=== PATIENT | female | born 1985 | race Two or more races ===

== ENCOUNTER 2021-05-30 08:40 | Outpatient (REF) | payer OTHER, SELFPAY ==
[2021-05-30 14:10] LABS: CT PCR NOT DETECTED (Not Detect.); NG PCR NOT DETECTED (Not Detect.)
[2021-05-31 09:16] LABS: BV Int Neg Control Negative (Negative); BV Int Pos Control Positive (Positive)
[2021-06-02 05:51] LABS: HPV mRNA E6/E7 rflx Not Detected (Not Detected)
== END 2021-05-30 08:41 | disposition home or self-care (01) ==
LOC: HO.LAB 08:40
PROVIDERS: Visit Provider Advanced Practice Midwife
DX: Z01.419 Encounter for gynecological examination (general) (routine) without abnormal findings (principal); Z11.51 Encounter for screening for human papillomavirus (HPV); R10.2 Pelvic and perineal pain; N64.4 Mastodynia; Z20.2 Contact with and (suspected) exposure to infections with a predominantly sexual mode of transmission
CPT/HCPCS: 81025; 87480; 87491; 87510; 87591; 87624; 87660; 88142

== ENCOUNTER 2021-07-05 11:41 | Outpatient (REF) | payer OTHER, SELFPAY ==
--- NOTE | ~2021-07-05 | MM_ITS ---
EXAMINATION: MM DIAGNOSTIC DIGITAL BREAST TOMOSYNTHESIS, BILATERAL US DIAGNOSTIC ULTRASOUND BREAST, LEFT CLINICAL INFORMATION: Age 36 with intermittent noncyclical left lateral breast pain 1.5 years. No palpable mass or discharge. The lifetime risk of breast cancer based on the Tyrer-Cuzick Model is 15%. COMPARISON: None (current study represents initial baseline exam). TECHNIQUE: Digital breast tomosynthesis is performed in both the craniocaudal and mediolateral oblique views along with computer-aided detection (CAD). Synthesized 2D images are generated from the tomosynthesis. Additional left MLO view is obtained. Ultrasound left breast is targeted to the upper and outer quadrants. Grayscale imaging and color Doppler are performed without and with harmonics. FINDINGS: There are scattered areas of fibroglandular density (ACR BI-RADS breast composition Category b). Breast tissue composition borders on heterogeneously dense. There is no significant mass or architectural abnormality or abnormal calcifications. The axilla and skin contours are unremarkable. There is no skin thickening or coarsening of the Chip's ligaments. Ultrasound left breast demonstrates no skin thickening or edema tracking in soft tissue planes. There is no focal duct ectasia or hyperemia or architectural abnormality. No solid mass. There are 2 incidental benign simple cysts present mid depth 12:00 and 2:00 position, both under 1 cm. Incidental node present posterior upper outer left breast with normal katarina architecture. Results are discussed with the patient at time of visit. MM/MM tomosynthesis diagnostic BI IMPRESSION: 1. No mammographic evidence of malignancy or inflammatory changes. 2. Ultrasound shows 2 incidental benign cysts left upper outer quadrant, both under 1 cm. ASSESSMENT: BI-RADS 2: Benign RECOMMENDATION: 1. Patient's intermittent noncyclical chronic left breast pain may be managed based on the clinical impression. 2. Otherwise, routine annual screening mammography, beginning age 40, or earlier as clinical risk factors warrant. This patient's information was entered into a reminder system with a target due date for their next mammogram.
[2021-07-05 13:38] LABS: MANUAL DIFF FLAG NO
[2021-07-05 13:51] LABS: Basophils Percent Auto 0.5 % (0-2); Eosinophils Absolute Auto 0.4 X10*3/uL (0.0-0.4); Eosinophils Percent Auto 6.7 % (0-4); Hematocrit 39.7 % (37.0-47.0); Hemoglobin 12.9 g/dl (12.0-16.0); Imm Gran Abs Auto 0.01 X10*3/uL (0.00-0.03); Imm Gran Pct Auto 0.2 % (0.0-0.4); Lymphocytes Absolute Auto 2.5 X10*3/uL (1.2-4.9); Lymphocytes Percent Auto 44.8 % (20-40); Mean Corpuscular HGB Conc 32.5 g/dl (31.0-35.0); Mean Corpuscular Hemoglobin 29.2 pg (27.0-33.0); Mean Corpuscular Volume 89.8 fL (80.0-98.0); Mean Platelet Volume 9.7 fL (9.4-12.3); Monocytes Absolute Auto 0.3 X10*3/uL (0.1-1.2); Monocytes Percent Auto 6.2 % (2-11); Neutrophils Absolute Auto 2.3 x10*3/uL (2.0-8.3); Neutrophils Percent Auto 41.6 % (45-73); Platelet Count 208 X10*3/uL (160-400); Red Blood Count 4.42 X10*6/uL (4.20-5.50); Red Cell Distribution Width 12.8 % (11.0-16.0); White Blood Count 5.5 X10*3/uL (4.8-10.8)
[2021-07-05 15:10] LABS: Alanine Aminotransferase 16 U/L (0-31); Albumin Level 4.2 g/dL (3.5-5.0); Alkaline Phosphatase 62 U/L (39-117); Anion Gap 11 (12-20); Aspartate Amino Transferase 17 U/L (5-31); Bilirubin Total 0.3 mg/dL (0.0-1.0); Blood Urea Nitrogen 10 mg/dL (9-16); Calcium 9.3 mg/dL (8.4-10.2); Carbon Dioxide 27 mmol/L (22-29); Chloride 103 mmol/L (96-108); Cholesterol 168 mg/dL; Estimated Glomerular Filt Rate > 60; Glucose Fasting 83 mg/dL (60-99); HDL Cholesterol 42 mg/dL; LDL Cholesterol Calculated 92 mg/dl; Potassium 3.9 mmol/L (3.3-5.1); Sodium 137 mmol/L (135-145); Total Protein 7.1 g/dL (6.5-8.0); Triglycerides 173 mg/dL
[2021-07-05 15:31] LABS: TSH reflex Free T4 1.08 uIU/mL (0.32-4.0)
== END 2021-07-05 11:42 | disposition home or self-care (01) ==
LOC: HO.MAMMO 11:41
PROVIDERS: Absent Provider Nurse Practitioner Family; PCP Nurse Practitioner Family; Visit Provider Advanced Practice Midwife
DX: N64.4 Mastodynia (principal)
CPT/HCPCS: 36415; 76642; 77062; 77066; 80053; 80061; 84443; 85025

== ENCOUNTER → 2021-07-13 11:40 | Outpatient (BNVA) | payer OTHER, SELFPAY | PROVIDERS: PCP Nurse Practitioner Family; Visit Provider Advanced Practice Midwife ==

== ENCOUNTER → 2021-08-18 13:04 | Outpatient (BNVA) | payer OTHER, SELFPAY | PROVIDERS: PCP Nurse Practitioner Family; Visit Provider Advanced Practice Midwife | DX: Z30.46 Encounter for surveillance of implantable subdermal contraceptive (principal) | CPT/HCPCS: 11983; 81025; J7307 ==

== ENCOUNTER 2021-09-08 19:42 | Emergency (ER) | payer OTHER, SELFPAY ==
--- NOTE | ~2021-09-08 | XR_ITS ---
EXAMINATION: XR CHEST CLINICAL INFORMATION: Cough. COMPARISON: None TECHNIQUE: 2 views of the chest were obtained. FINDINGS: No significant abnormality is noted involving the heart, lungs, mediastinum, bony thorax or soft tissues. XR/XR chest 2V IMPRESSION: Unremarkable examination.
[2021-09-08 19:48] VITALS: BP 131/80; PULSE 88; TEMP 37; O2SAT 98; BMI 24.4
--- NOTE | 2021-09-08 20:06 | ED_ITS ---
HPI - URI/Sore Throat General Chief Complaint: Upper Respiratory Symptoms Stated Complaint: diff breathing, chest pressure Source: patient Mode of arrival: ambulatory Limitations: no limitations History of Present Illness HPI Narrative: 36-year-old female presents for upper respiratory symptoms which include cough, fatigue, hoarse voice, feels as if she is having asthma exacerbation, and headache. MD elicited complaint: cough, sore throat, rhinorrhea and nasal congestion Pertinent past history: asthma Onset (ago): week(s) (1) Consistency: constant and progressively worsening Severity: moderate Pain scale (0-10): 10 Description of mucous: clear and watery Able to tolerate fluids by mouth: Yes Exacerbating factors: exertion Relieving factors: nothing Context: sick contacts Associated symptoms: voice changes, myalgias, headache, rhinorrhea, nasal congestion, sore throat, cough and shortness of breath Treatments prior to arrival: acetaminophen, ibuprofen and other (Nebulizers) Related Data Home Medications Medication Instructions Recorded Confirmed multivitamin (Daily Multi-Vitamin) 1 tab PO DAILY 06/14/21 08/10/21 etonogestrel 68 mg subdermal SUBDERMAL ONCE 08/10/21 08/10/21 implant (Nexplanon) Previous Rx's Medication Instructions Recorded triamcinolone acetonide 0.5 % 1 appl TOPICAL BID #15 g 06/14/21 topical ointment venlafaxine 75 mg tablet 75 mg PO DAILY #30 tab 08/10/21 albuterol sulfate 2.5 mg/0.5 mL 2.5 mg (0.5 mL) INHALATION Q20M 09/08/21 solution for nebulization #30 ea albuterol sulfate 90 mcg/actuation 2 puff INHALATION Q6H PRN #8.5 g 09/08/21 aerosol inhaler (Ventolin HFA) earbnhgusi-eyvkzeaormjid-ruvgxmup 1 tab PO Q4-6H PRN #10 tab 09/08/21 50 mg-325 mg-40 mg tablet prednisone 20 mg tablet 40 mg PO DAILY 5 Days #10 tab 09/08/21 Allergies Allergy/AdvReac Type Severity Reaction Status Date / Time Penicillins [PCN] Allergy Unknown UNKNOWN Verified 08/18/21 13:09 walnut Allergy Unknown Unknown Verified 08/18/21 13:09 Review of Systems Review of Systems: Constitutional: No Fever, No Chills ENT/Mouth: Positive Hoarseness, No sore throat, positive Rhinorrhea Eyes: No Redness, No Discharge, No Vision Changes Cardiovascular: No Chest Pain, positive SOB, positive Dyspnea on Exertion, No Edema Respiratory: positive Cough, No Sputum, positive Wheezing, Gastrointestinal: No Nausea, No Vomiting, No Diarrhea, No abdominal Pain Genitourinary: No Dysuria, No Hematuria Musculoskeletal: No joint pain, No Myalgias Skin: No rash Neuro: No Weakness, No Numbness, positive Headache Psych: No anxiety, depression Heme/Lymph: No Bruising, No Bleeding Endocrine: No Polyuria, No Polydipsia Yes all other systems are reviewed and are negative [facility] Past Medical History Attestation statement: The following information was validated with the patient. Source: old records reviewed Medical History Alopecia Surgical History No pertinent past surgical history Family History Family History Mother Ovarian cancer Other Mental health disorder Social History Social History Housing: House Alcohol intake: current Alcohol intake frequency: holidays/special occasions only Alcohol type: wine Patient Tobacco Use Status: Never used Tobacco e-Cigarette/Vaping Use: Never Used Second Hand Smoke Exposure: No Advance Directives: No Patient : No service: No Current occupational status: employed Current occupation: Dental Cognitive needs: No Hearing needs: No Vision needs: Yes Physical Exam Vital Signs: Vital Signs: Last Vital Signs Temp 98.6 F 09/08/21 19:48 Pulse 83 09/08/21 20:44 Resp 18 09/08/21 20:44 BP 131/80 09/08/21 19:48 Pulse Ox 98 09/08/21 19:48 BMI result Body Mass Index 24.4 Appearance: Alert. Oriented X3. Moderate distress. Photophobic. Eyes: Pupils equal, round and reactive to light. Sclera nonicteric. ENT: Pharynx normal. Moist mucous membranes. Neck: Normal inspection. Neck supple. CVS: Normal heart rate and rhythm. Pulses normal. Respiratory: No respiratory distress. Expiratory wheezing throughout. Abdomen: Soft and nontender. Skin: Skin warm and dry. Normal skin color. Normal skin turgor. Extremities: No lower extremity edema. Gait well-balanced well coordinated. Neuro: No motor deficit. No sensory deficit. Cranial nerves 2-12 intact. Course Course Course Narrative: 36-year-old female presents with upper respiratory symptoms. Has had these symptoms for approximately 1 week. Does not report fevers or chills but states to feel asthma exacerbation. Also reports a migraine headache for approximately 1 week. Lung sounds expiratory wheezing throughout. Able to speak in complete sentences. Will order neb, Solu-Medrol. Tylenol for headache. 22:06 migraine not relieved with Tylenol. Patient stated that medications were more effective. Lung sounds are clear, still has intermittent cough. Will prescribe albuterol nebs and inhaler, prednisone, and Fioricet for migraines. Patient understands that she must follow-up with primary care physician for migraine workup. Patient verbalized understanding of and agrees to plan of care to discharge home. Verbalized understanding of signs and symptoms indicating need for emergent intervention MDM - URI/Sore Throat Differential Diagnosis Differential diagnosis: Likely upper respiratory infection, sinusitis, viral infection, bronchitis, influenza and pharyngitis Medical Records Attestation: I reviewed the patient's medical records. Lab Data Attestation: I reviewed the patient's lab results. Labs: Lab Results 09/08/21 09/08/21 Range/Units 20:05 20:48 COVID-19 ([facility]JAY) Negative (Negative) COVID-19 Clin Com See Note Influenza Type A (UDAY) Negative (Negative) Influenza Type B (UDAY) Negative (Negative) Influenza A & B Note See Note Imaging Data Chest x-ray: Attestation: I personally reviewed and interpreted this imaging study as follows: Radiologist's impression: EXAMINATION: XR CHEST CLINICAL INFORMATION: Cough. COMPARISON: None TECHNIQUE: 2 views of the chest were obtained. FINDINGS: No significant abnormality is noted involving the heart, lungs, mediastinum, bony thorax or soft tissues. XR/XR chest 2V IMPRESSION: Unremarkable examination. Discharge Plan Discharge Clinical Impression: Asthma exacerbation, Migraine, Upper respiratory infection, viral Patient Disposition: Home, Self-Care Instructions: Asthma (ED), Migraine Headache (ED), Upper Respiratory Infection (ED), Viral Syndrome (ED) Additional Instructions: You were evaluated for upper respiratory symptoms. We treated you for asthma exacerbation. We refilled your albuterol nebulizers and inhalers. Please take these medications as directed. Please take prednisone 40 mg daily for the next 5 days. Please start this medication on 09/09/2021. Please take Fioricet for migraine headaches. You may consider following up with primary care for further workup for migraines. Her chest x-ray was negative for pneumonia. Drink plenty of fluids. Alternate Tylenol and Motrin as needed for pain management and fever control. Thank you for choosing this emergency department for evaluation. Please follow-up with primary care physician as needed. Return to the emergency d epartment for any new, concerning, or worsening symptoms. Prescriptions: New prednisone 20 mg tablet 40 mg PO DAILY 5 Days Qty: 10 0RF albuterol sulfate [Ventolin HFA] 90 mcg/actuation HFA aerosol inhaler 2 puff inhalation Q6H PRN (Reason: shortness of breath or wheezing) Qty: 8.5 0RF Rx Instructions: May substitute for medication approved by insurance albuterol sulfate 2.5 mg/0.5 mL solution for nebulization 2.5 mg inhalation Q20M Qty: 30 0RF Rx Instructions: for up to 3 doses, may substitute for medication accepted by insurance [id number]-[id number] 50-325-40 mg tablet 1 tab PO Q4-6H PRN (Reason: migraine headache) Qty: 10 0RF No Action multivitamin [Daily Multi-Vitamin] Tablet 1 tab PO DAILY 0RF triamcinolone acetonide 0.5 % ointment 1 appl topical BID Qty: 15 1RF Nexplanon 68 mg implant subdermal ONCE 0RF venlafaxine 75 mg tablet 75 mg PO DAILY Qty: 30 0RF Referrals: Eugenio Mendieta FNP-C [Primary Care Provider] - Stand Alone Forms: Work/School Release Interventions: ED Discharge Assessment Last Done: 09/08/21 23:01 Discharge Date/Time: 09/08/21 23:19
--- NOTE | 2021-09-08 20:11 | PC.NURSE ---
Assumed care of pt Pt c/o sore throat, productive cough, hoarse voice x 1 week. Per pt, started having YOUNG today around lunch. Phtotosensitive Coughing up green mucus Pt also been having worsening SOB Denies fevers/chills Hx of asthma and compliant with medications, (flovent, proair, albuterol), with no relief
[2021-09-08 20:26] LABS: IDNOW Serial# 55D5AD1C; Influenza A Negative (Negative); Influenza B2 Negative (Negative)
[2021-09-08] MEDS: Albuterol Sulfate (0.083%) 2.5 MG/3 ML VIAL.NEB 5 MG INHALE (20:42)
[2021-09-08 20:44] VITALS: PULSE 83; RESP 18; O2SAT 99
[2021-09-08] MEDS: methylPREDNISolone Sod Succ 125 MG/2 ML VIAL IVPUSH (20:45)
[2021-09-08] MEDS: Acetaminophen 325 MG TABLET 975 MG PO (20:59)
[2021-09-08 21:08] LABS: COVID-19 Test Negative (Negative); IDNOW Serial# 16C4AD1C
[2021-09-08] MEDS: Butalb/Acetamin/Caff 50/325/40 TABLET 1 TAB PO (22:15)
[2021-09-08] MEDS: Ketorolac Tromethamine 30 MG/ML VIAL IVPUSH (22:15)
[2021-09-08] MEDS: ondansetron HCL 4 MG/2 ML VIAL IVPUSH (22:15)
== END 2021-09-08 23:19 | disposition home or self-care (01) ==
PROVIDERS: Emergency Medicine Emergency Medical Services; Nurse Practitioner Family; Emergency Provider Internal Medicine; PCP Nurse Practitioner Family
DX: B34.9 Viral infection, unspecified (principal); J45.901 Unspecified asthma with (acute) exacerbation; J06.9 Acute upper respiratory infection, unspecified; G43.909 Migraine, unspecified, not intractable, without status migrainosus; R05.9 Cough, unspecified; R06.02 Shortness of breath; M79.10 Myalgia, unspecified site; Z20.822 Contact with and (suspected) exposure to COVID-19; Z79.899 Other long term (current) drug therapy
CPT/HCPCS: 71046; 87502; 87635; 94640; 96374; 96375; 99283; 99284; J1885; J2405; J2930

== ENCOUNTER 2021-11-15 06:21 | Emergency (ER) | payer OTHER, SELFPAY ==
--- NOTE | 2021-11-15 | ECG_ITS ---
Test Reason : cp Blood Pressure : / mmHG Vent. Rate : 089 BPM Atrial Rate : 089 BPM P-R Int : 156 ms QRS Dur : 074 ms QT Int : 352 ms P-R-T Axes : 078 082 044 degrees QTc Int : 428 ms Normal sinus rhythm Normal ECG No previous ECGs available Referred By: Generic ED Physician Electronically Signed By:CHRISTAL ENRIQUEZ MD
[2021-11-15 06:34] VITALS: BP 135/75; PULSE 93; RESP 20; TEMP 36.8; O2SAT 96; BMI 25.4
[2021-11-15 07:09] LABS: COVID-19 Test Negative (Negative); IDNOW Serial# 16C4AD1C; Influenza A Negative (Negative); Influenza B2 Negative (Negative)
--- NOTE | 2021-11-15 08:16 | ED_ITS ---
HPI - General Adult General Chief complaint: Nausea/Vomiting/Diarrhea Stated complaint: flu like symptoms, cp Time Seen by Provider: 11/15/21 08:16 Source: patient Mode of arrival: ambulatory Limitations: no limitations History of Present Illness HPI narrative: Patient is a 36 year old female presenting to the emergency department today with nausea, vomiting, and a migraine. Patient states that starting 3 hours ago, she began to have nausea, vomiting, and a migraine. Patient states that she has a history of migraines and this isn't uncommon for her. Patient denies any dizziness, lightheadedness, abdominal pain, fever, chills, blurry vision, double vision, loss of vision, chest pain, difficulty breathing, shortness of breath, back pain, night sweats, pain with urination, increased urinary frequency, increased urinary urgency, blood in her urine or stool, vaginal bleeding, vaginal discharge, syncope or a near syncopal episode, recent trauma or falls, bowel incontinence, bladder incontinence, bowel retention, bladder retention, or any other complaints at this time. Onset (ago): hour(s) (3) Severity: mild Severity scale (1-10): 1 Relieving factors: none Exacerbating factors: none Associated symptoms: headaches and nausea/vomiting Treatments prior to arrival: none Related Data Home Medications Medication Instructions Recorded Confirmed multivitamin (Daily Multi-Vitamin) 1 tab PO DAILY 06/14/21 10/05/21 etonogestrel 68 mg subdermal subdermal ONCE 08/10/21 10/05/21 implant (Nexplanon) Previous Rx's Medication Instructions Recorded triamcinolone acetonide 0.5 % 1 appl topical BID #15 grams 06/14/21 topical ointment albuterol sulfate 2.5 mg/0.5 mL 2.5 mg (0.5 mL) inhalation Q20M 09/08/21 solution for nebulization #30 ea albuterol sulfate 90 mcg/actuation 2 puff inhalation Q6H PRN 09/08/21 aerosol inhaler (Ventolin HFA) shortness of breath or wheezing #8.5 grams zrspokszyf-izarepxsxxtby-bmmesuuw 1 tab PO Q4-6H PRN migraine 09/08/21 50 mg-325 mg-40 mg tablet headache #10 tabs ondansetron 4 mg disintegrating 4 mg PO DAILY PRN nausea and 10/05/21 tablet vomiting #14 tabs venlafaxine 75 mg tablet 75 mg PO DAILY #90 tabs 10/05/21 Allergies Allergy/AdvReac Type Severity Reaction Status Date / Time Penicillins [PCN] Allergy Unknown UNKNOWN Verified 11/15/21 06:35 walnut Allergy Unknown Unknown Verified 11/15/21 06:35 Review of Systems Constitutional: Constitutional: Reports no additional constitutional complaints, Denies chills, Denies fever(s), Reports headache(s) and Denies night sweats Eyes: Eyes: Reports no additional eye complaints, Denies blurry vision, Denies change in vision, Denies diplopia, Denies eye discharge, Denies loss of vision and Denies eye pain ENT: Denies dizziness and Reports headache(s) Cardiovascular: Cardiovascular: Reports no additional cardiovascular complaints, Denies chest pain, Denies lightheadedness, Denies Loss of Consciousness and Denies dyspnea Respiratory: Respiratory: Reports no additional respiratory complaints and Denies dyspnea Gastrointestinal: Gastrointestinal: Reports no additional gastrointestinal complaints, Denies abdominal pain, Denies melena, Denies hematochezia, Denies change in bowel habits, Denies change in stool character, Reports nausea and Reports vomiting Genitourinary: Genitourinary: Denies hematuria, Denies urinary frequency, Denies dysuria, Denies urinary incontinence, Denies urinary hesitancy and Denies urinary urgency Musculoskeletal: Musculoskeletal: Reports no additional musculoskeletal complaints, Denies numbness and Denies tingling Neurologic: Denies dizziness, Reports headache(s), Denies loss of vision, Denies numbness and Denies tingling Psychiatric: Psychiatric: Reports no additional psychiatric complaints Endocrine: Endocrine: Reports no additional endocrine complaints Hematologic/Lymphatic: Hematologic/Lymphatic: Reports no additional hematologic/lymphatic complaints Allergic/Immunologic: Allergic/Immunologic: Reports no additional allergic/i mmunologic complaints PMFSH Past Medical History Attestation statement: The following information was validated with the patient. Source: old records reviewed Medical History Alopecia Surgical History No pertinent past surgical history Family History Family History Mother Ovarian cancer Other Mental health disorder Social History Social History Housing: House Alcohol intake: current Alcohol intake frequency: holidays/special occasions only Alcohol type: wine Patient Tobacco Use Status: Never used Tobacco e-Cigarette/Vaping Use: Never Used Second Hand Smoke Exposure: No Advance Directives: No Advance Directives Information Provided: No service: No Current occupational status: employed Current occupation: Dental Current occupational exposures/hazards: No Cognitive needs: No Hearing needs: No Vision needs: Yes Physical Exam ED Vital Signs: Vital Signs - 24 hr 11/15/21 06:34 11/15/21 09:02 Temperature 98.3 F 98.0 F Pulse Rate 93 95 Respiratory Rate 20 16 Blood Pressure 135/75 127/76 Pulse Oximetry 96 98 Oxygen Delivery Method Room Air Room Air BMI result Body Mass Index 25.4 Const General: cooperative, no acute distress, alert and awake Nutritional Appearance: well nourished Orientation/consciousness: patient oriented x3 Limitations: no limitations HENMT Head: Yes normal to inspection and Yes atraumatic Ears: hearing grossly normal bilaterally and external ears normal General nose exam: Normal external nose present, no nasal discharge noted and no epistaxis Face and sinus: Yes normal facial exam, No abrasion and No laceration Mouth: Normal oral and palatal mucosa present, no drooling and no muffled voice Eyes General: appearance normal, both eyes and all related structures Periorbital: periorbital findings normal Eyelids: Yes eyelids normal Conjunctivae: conjunctivae normal Pupils: Equal, round and reactive pupils present EOM: EOMs intact bilaterally Neck Neck: Yes normal visual inspection, Yes full ROM and Yes no lymphadenopathy Chest Chest palpation & inspection: normal inspection of the chest Resp Effort & Inspection: normal respiratory effort and able to speak in complete sentences Auscultation: clear to auscultation bilaterally Cardio Rate: regular rate Rhythm: regular rhythm GI Inspection: Yes normal to inspection Palpation (GI): Soft to palpation, not firm, nontender and no guarding Neuro General: patient oriented x3 and moves all extremities Cranial nerves: Yes Equal, round and reactive pupils present Cognition (Neuro): normal cognition Motor exam (neuro): 5/5 motor strength present throughout Sensory Exam: Normal double simultaneous stimulation for sensation Coordination: [id number] test normal Extrem General: Yes normal to inspection, Yes full ROM and Yes capillary refill normal Psych Appearance: grossly normal Mental Status: mental status grossly normal Affect: normal affect Attitude: cooperative Thought process: Normal thought process present Thought content: Normal thought content present Insight: Good insight present (Psych) Medical Decision Making MDM Narrative Medical decision making narrative: Patient is a 36 year old female presenting to the emergency department today with nausea and a migraine. Patient's physical exam was unremarkable. Patient's blood work was unremarkable. Patient's urine showed no acute process. I explained my physical exam findings as well as all test results to the patient. I answered all questions asked by the patient. Patient received IV fluids, Toradol, and regalin which she stated helped her symptoms significantly. I stressed the importance of the patient taking her medication as prescribed. I stressed the importance of the patient following up with her primary care provider. I stressed the importance of the patient returning to the emergency department immediately if her symptoms were to worsen or if she were to develop any dizziness, shortness of breath, difficulty breathing, chest pain, blurry vision, loss of vision, nausea, vomiting, abdominal pain, fever, chills, back pain, or any other complaints. Patient verbalized agreement and understanding with this treatment plan and discharge. Differential Diagnosis Differential Diagnosis: nausea, vomiting Medical Records Medical records reviewed: Yes I reviewed the patient's medical records. Lab Data Lab results reviewed: Yes I reviewed the patient's lab results. Result diagrams: 11/15/21 08:47 11/15/21 08:47 Labs: Lab Results 11/15/21 11/15/21 11/15/21 Range/Units 06:36 06:36 08:47 WBC 11.1 H (4.8-10.8) X10*3/uL RBC 4.95 (4.20-5.50) X10*6/uL Hgb 14.3 (12.0-16.0) g/dl Hct 43.7 (37.0-47.0) % MCV 88.3 (80.0-98.0) fL MCH 28.9 (27.0-33.0) pg MCHC 32.7 (31.0-35.0) g/dl RDW 13.3 (11.0-16.0) % Plt Count 235 (160-400) X10*3/uL MPV 10.0 (9.4-12.3) fL Immature Gran % (Auto) 0.4 (0.0-0.4) % Neut % (Auto) 84.3 H (45-73) % Lymph % (Auto) 8.7 L (20-40) % Bay % (Auto) 5.5 (2-11) % Eos % (Auto) 1.0 (0-4) % Baso % (Auto) 0.1 (0-2) % Lymph # (Auto) 1.0 L (1.2-4.9) X10*3/uL Bay # (Auto) 0.6 (0.1-1.2) X10*3/uL Eos # (Auto) 0.1 (0.0-0.4) X10*3/uL Baso # (Auto) 0.0 (0.0-0.2) X10*3/uL Abs Immat Gran (auto) 0.04 H (0.00-0.03) X10*3/uL Absolute Neuts (auto) 9.4 H (2.0-8.3) x10*3/uL Absolute Nucleated RBC 0.000 (0.0-0.012) X10*3/uL Nucleated RBC % (auto) 0.0 (0.0-0.2) /100WBC Sodium (135-145) mmol/L Potassium (3.3-5.1) mmol/L Chloride (96-108) mmol/L Carbon Dioxide (22-29) mmol/L Anion Gap (12-20) BUN (9-16) mg/dL Creatinine (0.5-1.4) mg/dL Estim Creat Clear Calc Estimated GFR Random Glucose (60-115) mg/dL Calcium (8.4-10.2) mg/dL Magnesium (1.6-2.6) mg/dL Total Bilirubin (0.0-1.0) mg/dL AST (5-31) U/L ALT (0-31) U/L Alkaline Phosphatase (39-117) U/L Total Protein (6.5-8.0) g/dL Albumin (3.5-5.0) g/dL Urine Color Urine Appearance Urine pH (5.0-8.0) Ur Specific [place] (1.005-1.025) Urine Protein (NEG-TRACE) MG/DL Urine Glucose (UA) (NEG) MG/DL Urine Ketones (NEG) MG/DL Urine Blood (NEG) Urine Nitrite (NEG) Ur Leukocyte Esterase (NEG) COVID-19 (SANJAY) Negative (Negative) COVID-19 Clin Com See Note Influenza Type A (UDAY) Negative (Negative) Influenza Type B (UDAY) Negative (Negative) Influenza A & B Note See Note 11/15/21 11/15/21 Range/Units 08:47 10:44 WBC (4.8-10.8) X10*3/uL RBC (4.20-5.50) X10*6/uL Hgb (12.0-16.0) g/dl Hct (37.0-47.0) % MCV (80.0-98.0) fL MCH (27.0-33.0) pg MCHC (31.0-35.0) g/dl RDW (11.0-16.0) % Plt Count (160-400) X10*3/uL MPV (9.4-12.3) fL Immature Gran % (Auto) (0.0-0.4) % Neut % (Auto) (45-73) % Lymph % (Auto) (20-40) % Bay % (Auto) (2-11) % Eos % (Auto) (0-4) % Baso % (Auto) (0-2) % Lymph # (Auto) (1.2-4.9) X10*3/uL Bay # (Auto) (0.1-1.2) X10*3/uL Eos # (Auto) (0.0-0.4) X10*3/uL Baso # (Auto) (0.0-0.2) X10*3/uL Abs Immat Gran (auto) (0.00-0.03) X10*3/uL Absolute Neuts (auto) (2.0-8.3) x10*3/uL Absolute Nucleated RBC (0.0-0.012) X10*3/uL Nucleated RBC % (auto) (0.0-0.2) /100WBC Sodium 139 (135-145) mmol/L Potassium 3.9 (3.3-5.1) mmol/L Chloride 107 (96-108) mmol/L Carbon Dioxide 25 (22-29) mmol/L Anion Gap 11 L (12-20) BUN 16 D (9-16) mg/dL Creatinine 0.71 (0.5-1.4) mg/dL Estim Creat Clear Calc 86.3 Estimated GFR > 60 Random Glucose 142 H (60-115) mg/dL Calcium 8.8 (8.4-10.2) mg/dL Magnesium 1.8 (1.6-2.6) mg/dL Total Bilirubin 0.6 (0.0-1.0) mg/dL AST 14 (5-31) U/L ALT 15 (0-31) U/L Alkaline Phosphatase 64 (39-117) U/L Total Protein 6.8 (6.5-8.0) g/dL Albumin 4.2 (3.5-5.0) g/dL Urine Color YELLOW Urine Appearance CLEAR Urine pH 6.0 (5.0-8.0) Ur Specific [place] >= 1.030 H (1.005-1.025) Urine Protein NEG (NEG-TRACE) MG/DL Urine Glucose (UA) NEG (NEG) MG/DL Urine Ketones NEG (NEG) MG/DL Urine Blood 2+ H (NEG) Urine Nitrite NEG (NEG) Ur Leukocyte Esterase NEG (NEG) COVID-19 (SANJAY) (Negative) COVID-19 Clin Com Influenza Type A (UDAY) (Negative) Influenza Type B (UDAY) (Negative) Influenza A & B Note Discharge Plan Discharge Clinical Impression: Nausea, Migraine Patient Disposition: Home, Self-Care Instructions: Migraine Headache (ED), Acute Nausea and Vomiting (ED) Additional Instructions: Follow up with your primary care provider. Return to the emergency department immediately if your symptoms worsen or if you develop any dizziness, shortness of breath, difficulty breathing, chest pain, blurry vision, loss of vision, nausea, vomiting, abdominal pain, fever, chills, back pain, or any other complaints. Prescriptions: No Action albuterol sulfate [Ventolin HFA] 90 mcg/actuation HFA aerosol inhaler 2 puff inhalation Q6H PRN (Reason: shortness of breath or wheezing) Qty: 8.5 0RF Rx Instructions: May substitute for medication approved by insurance albuterol sulfate 2.5 mg/0.5 mL solution for nebulization 2.5 mg inhalation Q20M Qty: 30 0RF Rx Instructions: for up to 3 doses, may substitute for medication accepted by insurance [id number] 50-325-40 mg tablet 1 tab PO Q4-6H PRN (Reason: migraine headache) Qty: 10 0RF multivitamin [Daily Multi-Vitamin] Tablet 1 tab PO DAILY triamcinolone acetonide 0.5 % ointment 1 appl topical BID Qty: 15 1RF venlafaxine 75 mg tablet 75 mg PO DAILY Qty: 90 1RF ondansetron 4 mg tablet,disintegrating 4 mg PO DAILY PRN (Reason: nausea and vomiting) Qty: 14 0RF Nexplanon 68 mg implant subdermal ONCE Referrals: [facility] [Provider Group] (Call to establish and follow up with a primary care provider. If you already have one, call and follow up with their office. ) [facility] [Provider Group] (Call to establish and follow up with a primary care provider. If you already have one, call and follow up with their office. ) [facility] [Provider Group] (Call to establish and follow up with a primary care provider. If you already have one, call and follow up with their office. ) Stand Alone Forms: Work/School Release Print Language: Sami
[2021-11-15 08:52] LABS: MANUAL DIFF FLAG NO
[2021-11-15 08:55] LABS: Basophils Percent Auto 0.1 % (0-2); Eosinophils Absolute Auto 0.1 X10*3/uL (0.0-0.4); Hematocrit 43.7 % (37.0-47.0); Hemoglobin 14.3 g/dl (12.0-16.0); Imm Gran Abs Auto 0.04 X10*3/uL (0.00-0.03); Imm Gran Pct Auto 0.4 % (0.0-0.4); Lymphocytes Percent Auto 8.7 % (20-40); Mean Corpuscular HGB Conc 32.7 g/dl (31.0-35.0); Mean Corpuscular Hemoglobin 28.9 pg (27.0-33.0); Mean Corpuscular Volume 88.3 fL (80.0-98.0); Monocytes Absolute Auto 0.6 X10*3/uL (0.1-1.2); Monocytes Percent Auto 5.5 % (2-11); Neutrophils Absolute Auto 9.4 x10*3/uL (2.0-8.3); Neutrophils Percent Auto 84.3 % (45-73); Platelet Count 235 X10*3/uL (160-400); Red Blood Count 4.95 X10*6/uL (4.20-5.50); Red Cell Distribution Width 13.3 % (11.0-16.0); White Blood Count 11.1 X10*3/uL (4.8-10.8)
[2021-11-15] MEDS: 0.9 % Sodium Chloride 1,000 ML 999 ML IV (08:57)
[2021-11-15] MEDS: Ketorolac Tromethamine 15 MG/ML VIAL IVPUSH (08:57)
[2021-11-15] MEDS: Metoclopramide HCl 10 MG/2 ML VIAL IVPUSH (08:57)
[2021-11-15 09:02] VITALS: BP 127/76; PULSE 95; RESP 16; TEMP 36.7; O2SAT 98
--- NOTE | 2021-11-15 09:08 | PC.NURSE ---
patient a/o x4 . skin pink warm and dry . IV placed in left ac , tolerated well . Iv fluids started as ordered . patient aware of need for urine sample . labs sent . medicated for nausea and pain and body aches as ordered .patient aware of plan of care .
[2021-11-15 09:19] LABS: Alanine Aminotransferase 15 U/L (0-31); Albumin Level 4.2 g/dL (3.5-5.0); Alkaline Phosphatase 64 U/L (39-117); Anion Gap 11 (12-20); Aspartate Amino Transferase 14 U/L (5-31); Bilirubin Total 0.6 mg/dL (0.0-1.0); Blood Urea Nitrogen 16 mg/dL (9-16); Calcium 8.8 mg/dL (8.4-10.2); Carbon Dioxide 25 mmol/L (22-29); Chloride 107 mmol/L (96-108); Creatinine Clr Calc Pharmacy 86.3; Estimated Glomerular Filt Rate > 60; Glucose Random 142 mg/dL (60-115); Magnesium 1.8 mg/dL (1.6-2.6); Potassium 3.9 mmol/L (3.3-5.1); Sodium 139 mmol/L (135-145); Total Protein 6.8 g/dL (6.5-8.0)
[2021-11-15 10:51] LABS: Appearance Urine CLEAR; Color Urine YELLOW; Glucose Urine UA NEG (NEG); Leukocyte Esterase Urine NEG (NEG); Nitrite Urine NEG (NEG); Specific Gravity - Urine >= 1.030 (1.005-1.025); UACC Culture Trigger NO; Urine Blood 2+ (NEG); Urine Ketones NEG (NEG); Urine Protein NEG (NEG-TRACE)
[2021-11-15 11:23] LABS: Other Crystals Urine 1+ /LPF; Squamous Epithelial Cell Urine 1+ /LPF
[2021-11-15 11:24] LABS: Bacteria Urine TRACE /LPF; WBC Urine 0-2 /HPF (0-4)
[2021-11-15 12:07] LABS: UPreg QC Valid YES; Urine Pregnancy NEGATIVE (NEGATIVE)
== END 2021-11-15 12:13 | disposition home or self-care (01) ==
PROVIDERS: Physician Assistant; Physician Assistant Medical; Emergency Provider Emergency Medicine
DX: G43.909 Migraine, unspecified, not intractable, without status migrainosus (principal); R11.2 Nausea with vomiting, unspecified; Z20.822 Contact with and (suspected) exposure to COVID-19; Z79.899 Other long term (current) drug therapy
CPT/HCPCS: 36415; 80053; 81001; 81025; 83735; 85025; 87502; 87635; 93005; 96361; 96374; 96375; 99284; 99285; J1885; J2765

== ENCOUNTER 2022-02-28 08:42 | Emergency (ER) | payer OTHER, SELFPAY ==
--- NOTE | ~2022-02-28 | XR_ITS ---
EXAMINATION: XR CHEST CLINICAL INFORMATION: Positive RSV, cough, sputum, wheezing. COMPARISON: 09/08/2021 chest radiographs. TECHNIQUE: 2 views of the chest were obtained. FINDINGS: No significant abnormality is noted involving the heart, lungs, mediastinum, bony thorax or soft tissues. XR/XR chest 2V IMPRESSION: No acute cardiopulmonary process.
[2022-02-28 09:11] VITALS: BP 101/77; PULSE 96; RESP 20; TEMP 36.8; O2SAT 98; BMI 25.4
[2022-02-28 10:00] LABS: Influenza A PCR NEGATIVE (Negative); Influenza B PCR NEGATIVE (Negative); Resp Syncy Virus RNA Qual PCR POSITIVE (Negative); SARS COV2 PCR INHOUSE NEGATIVE (Negative)
--- OUTSIDE RECORDS SUMMARY | 2022-02-28 10:08 | XMS_ITS | Continuity of Care Document ---
:1985 Author Organization [facility] Address [address] [place] [id number]- Care Team Providers Name Role Phone Not on Staff, PCP Primary Care Physician Unavailable [facility]counter [facility] Date(s): 05/12/19 - 05/12/[address] [address]- [facility] Discharge Disposition: A-D/C Home Attending Physician: Jorje Block MD Admitting Physician: Jorje Block MD Referring Physician: Not on Staff, Referring MD Allergies, Adverse Reactions, Alerts Substance Reaction Severity Status penicillin Anaphylactic shock due to serum Active Nuts rash Active Immunizations Given and Recorded Vaccine Date Status Refusal Reason tetanus/diphtheria/pertussis, acel(Tdap)1 04/01/13 Given 1Admin Note: TDAP vaccine information sheet. 05/30/2011 Medications albuterol CFC free 90 mcg/inh inhalation aerosol 2 puffs, Inhalation, Every 4 hours, PRN for wheezing, use with spacer chamber, may give up to 6 puffs at a time, # 18 Gm, 0 Refills, Maintenance, 05/21/14 15:34:46, Aerosol Start Date: 05/21/14 Status: Orderedibuprofen 600 mg oral tablet 1 tablet = 600 mg, By Mouth, Every 6 hours, PRN as needed for pain, with food or milk, # 120 tablet,1 Refills, Maintenance, Tablet, 1 tablet By Mouth Every 6 hours,x30 days,PRN:as needed for pain,Instr:with food or milk Start Date: 04/03/13 Stop Date: 06/02/13 Status: OrderedPercocet-5 Tablet See Instructions, Scheduled / PRN, 12, tablet, 0, 0, 06/03/06 13:00:50, Pain , Moderate, 2 tablet ByMouth Once, Print CARMELINA Number, ADS OPPTHS Start Date: 06/03/06 Status: OrderedPhenergan 25 mg oral tablet 25 mg, By Mouth, 4 times a day, 0 Refills Start Date: 09/24/08 Stop Date: 09/29/08 Status: OrderedPrenatal Multivitamins with Folic Acid 0.4 mg oral tablet 1 tablet, By Mouth, Daily, # 30 tablet, 11 Refills, Maintenance, Tablet, 1 tablet By Mouth Daily,[id number] Start Date: 04/03/13 Stop Date: 03/29/14 Status: OrderedPyridium 200 mg oral tablet 1 tablet = 200 mg, By Mouth, 3 times a day, # 9 tablet, 0 Refills, Maintenance Start Date: 08/29/10 Stop Date: 09/01/10 Status: OrderedZofran 4 mg oral tablet 1 tablet = 4 mg, By Mouth, Every 8 hours, PRN as needed for nausea/vomiting, # 12 tablet, 0 Refills,Maintenance Start Date: 08/29/10 Stop Date: 08/31/10 Status: OrderedZofran ODT 4 mg oral tablet, disintegrating 1 tablet = 4 mg, By Mouth, Every 8 hours, PRN Nausea & Vomiting, allow tablet to dissolve on tongue, # 10 tablet, 0 Refills, Maintenance, 06/08/13 22:17:26, Tablet Start Date: 06/08/13 Status: OrderedZofran ODT 4 mg oral tablet, disintegrating 1 tablet = 4 mg, By Mouth, 3 times a day, # 15 tablet, 0 Refills, Maintenance, 06/22/18 19:05:27 EST Start Date: 06/22/18 Stop Date: 06/27/18 Status: Ordered Vital Signs Most recent to oldest [Reference Range]: 1 2 Weight 58.1 kg 58.1 kg (05/12/19 1:21 PM) (05/12/19 12:59 PM) Oxygen Saturation [94-100 %] 100 % 100 % (05/12/19 12:59 PM) (05/12/19 12:55 PM) Pulse Rate [55-90 bpm] 75 bpm 78 bpm (05/12/19 12:59 PM) (05/12/19 12:55 PM) Blood Pressure [90-138/55-84 mm Hg] 126/81 mm Hg (05/12/19 12:59 PM) Respiratory Rate [16-30 br/min] 16 br/min (05/12/19 12:59 PM) Temperature [96.8-100.4 DegF] 98.4 DegF (05/12/19 12:59 PM) Mode of Delivery (Oxygen) Room air Room air (05/12/19 12:59 PM) (05/12/19 12:55 PM) Blood pressure sites Arm, right (05/12/19 12:59 PM) Temperature Route Oral (05/12/19 12:59 PM) Dry Weight 58.1 kg 58.1 kg (05/12/19 1:21 PM) (05/12/19 12:59 PM) Weight Obtained Via Standing scale (05/12/19 12:59 PM) Dry Weight Obtained Via Standing scale (05/12/19 12:59 PM) Social History Social History Type Response Smoking Status Never smoker entered on: 05/21/14 Sex
--- OUTSIDE RECORDS SUMMARY | 2022-02-28 10:08 | XMS_ITS | Continuity of Care Document ---
:1985 Author Organization [facility] Address [address] [place] [id number]- Care Team Providers Name Role Phone Not on Staff, PCP Primary Care Physician Unavailable [facility] Date[facility]s): [facility] - 05/21/[address] [address]- [facility] Discharge Disposition: A-D/C Walkout Attending Physician: Not on Staff, Attending MD Admitting Physician: Not on Staff, Admitting MD Referring Physician: Not on Staff, Referring [...] Refills, Maintenance, Tablet, 1 tablet By Mouth Daily,[id number] Start Date: 04/03/13 Stop Date: 03/29/14 Status: [...] Ordered Vital Signs Most recent to oldest 1 2 3 [Reference Range]: Weight 57.5 kg 57.5 kg 57.5 kg (05/21/19 3:25 AM) (05/21/19 12:02 AM) (05/20/19 9: 57 PM) Oxygen Saturation [94-100 %] 99 % 100 % 100 % (05/21/19 3:25 AM) (05/21/19 12:02 AM) (05/20/19 9: 57 PM) Pulse Rate [55-90 bpm] 86 bpm 66 bpm 66 bpm (05/21/19 3:25 AM) (05/21/19 12:02 AM) (05/20/19 9: 57 PM) Blood Pressure [90-138/55-84 119/82 mm Hg 106/60 mm Hg 117 /60 mm Hg mm Hg] (05/21/19 3:25 AM) (05/21/19 12:02 AM) (05/20/19 9: 57 PM) Respiratory Rate [16-30 18 br/min 18 br/min 16 br/mi n br/min] (05/21/19 3:25 AM) (05/21/19 12:02 AM) (05/20/19 9: 57 PM) Temperature [96.8-100.4 DegF] 98.2 DegF 98.5 DegF 98 .2 DegF (05/21/19 3:25 AM) (05/21/19 12:02 AM) (05/20/19 9: 57 PM) Mode of Delivery (Oxygen) Room air room air Room a ir (05/21/19 3:25 AM) (05/21/19 12:02 AM) (05/20/19 9: 57 PM) Blood pressure sites Arm, right Arm, right (05/21/19 12:02 AM) (05/20/19 9:57 PM) Temperature Route Oral Oral Oral (05/21/19 3:25 AM) (05/21/19 12:02 AM) (05/20/19 9: 57 PM) Dry Weight 57.5 kg 57.5 kg 57.5 kg (05/21/19 3:25 AM) (05/21/19 12:02 AM) (05/20/19 9: 57 PM) Weight Obtained Via Standing scale (05/20/19 9:57 PM) Dry Weight Obtained Via Standing scale (05/20/19 9:57 PM) Social History Social History Type Response Smoking Status Never smoker entered on: 05/21/14 Sex
--- OUTSIDE RECORDS SUMMARY | 2022-02-28 10:08 | XMS_ITS | Continuity of Care Document ---
:1985 Author Organization [facility] Address [address] [place] [id number]- Care Team Providers Name Role Phone Not on Staff, PCP Primary Care Physician Unavailable [facility] Date[facility]s): 05/05/19 - 05/05/[address] [address]- [facility] Discharge Disposition: A-D/C Home Attending Physician: Slava Li DO Admitting Physician: Slava Li DO Referring Physician: Not on Staff, Referring MD [...] Start Date: 04/03/13 Stop Date: 06/02/13 Status: Orderedibuprofen 600 mg oral tablet 600 mg, 1, tablet, By Mouth, Every 6 hours, for 5 days, with food or milk, # 20 tablet, Refills 0, Tot. Refills 0, Acute 05/10/19 14:14:00 EST, 05/05/19 14:14:00 EST, Route to Pharmacy Electronically, [facility]/pharmacy #[id number], 54.2, kg, 06/22/18 15:51:00 ES... Start Date: 05/05/19 Stop Date: 05/10/19 Status: OrderedPercocet-5 Tablet See Instructions, Scheduled / PRN, 12, tablet, 0, 0, 06/03/06 13:00:50, Pain , Moderate, 2 tablet ByMouth Once, Print [facility] Start Date: 06/03/06 Status: OrderedPhenergan 25 mg oral tablet 25 mg, By Mouth, 4 times a day, 0 Refills Start Date: 09/24/08 Stop Date: 09/29/08 Status: OrderedPrenatal Multivitamins with Folic Acid 0.4 mg oral tablet 1 tablet, By Mouth, Daily, # 30 tablet, 11 Refills, Maintenance, Tablet, 1 tablet By Mouth Daily,[id number] Start Date: 04/03/13 Stop Date: 03/29/14 Status: [...] recent to oldest [Reference Range]: 1 2 Oxygen Saturation [94-100 %] 100 % 97 % (05/05/19 12:52 PM) (05/05/19 11:42 AM) Pulse Rate [55-90 bpm] 70 bpm 71 bpm (05/05/19 12:52 PM) (05/05/19 11:42 AM) Blood Pressure [90-138/55-84 mm Hg] 121/75 mm Hg 126/ 79 mm Hg (05/05/19 12:52 PM) (05/05/19 11:42 AM) Respiratory Rate [16-30 br/min] 18 br/min 16 br/mi n (05/05/19 12:52 PM) (05/05/19 11:42 AM) Temperature [96.8-100.4 DegF] 98.1 DegF (05/05/19 12:52 PM) Mode of Delivery (Oxygen) Room air Room air (05/05/19 12:52 PM) (05/05/19 11:42 AM) Blood pressure sites Arm, right Arm, right (05/05/19 12:52 PM) (05/05/19 11:42 AM) Temperature Route Oral (05/05/19 12:52 PM) Social History Social History Type Response Smoking Status Never smoker entered on: 05/21/14 Sex
--- NOTE | 2022-02-28 10:32 | ED.ASTHMA ---
HPI - Asthma General Chief Complaint: Upper Respiratory Symptoms Stated Complaint: Cough Chest Discomfort Time Seen by Provider: 02/28/22 10:11 Source: patient Mode of arrival: ambulatory Limitations: no limitations History of Present Illness HPI Narrative: 37yoF c PMHx of Asthma, Anxiety, Depression, Eczema, Alopecia, Migraine headaches presenting to the ED with complaints of nasal congestion/rhinorrhea, sore throat, dry cough with wheezing/chest tightness/shortness of breath and pain under her breast since Sunday worse today. 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 She denies any sick contacts that she is aware of. She reports she has been using her albuterol inhaler and Flovent along with her nebulizer no symptomatic relief. She reports she is that prior to arrival. She denies any fevers, dizziness, headaches, neck pain/stiffness, nausea/vomiting, ear pain, trouble swallowing, abdominal pain, back pain, lower extremity edema or calf tenderness, recent travel or any other symptoms complaints or concerns at this time. Reports that she has never been intubated for her asthma. MD complaint: asthma attack , shortness of breath and wheezing Onset (ago): day(s) (4) Severity: moderate Context: none known Associated symptoms: dry cough Asthma History: childhood onset, history of frequent attacks and history of prior ED visit Treatments Prior to Arrival: inhaled bronchodilator Related Data Current Asthma Therapy: inhaled bronchodilator Home Medications Medication Instructions Recorded Confirmed multivitamin (Daily Multi-Vitamin 1 tab PO DAILY 06/14/21 11/24/21 tablet) etonogestrel 68 mg subdermal subdermal ONCE 08/10/21 11/24/21 implant (Nexplanon) Previous Rx's Medication Instructions Recorded triamcinolone acetonide 0.5 % 1 appl topical BID #15 grams 06/14/21 topical ointment albuterol sulfate 2.5 mg/0.5 mL 2.5 mg (0.5 mL) inhalation Q20M 09/08/21 solution for nebulization #30 ea albuterol sulfate 90 mcg/actuation 2 puff inhalation Q6H PRN 09/08/21 aerosol inhaler (Ventolin HFA) shortness of breath or wheezing #8.5 grams ondansetron 4 mg disintegrating 4 mg PO DAILY PRN nausea and 10/05/21 tablet vomiting #14 tabs albuterol sulfate 0.63 mg/3 mL 0.63 mg (3 mL) inhalation QID PRN 02/28/22 solution for nebulization shortness of breath or wheezing #75 mL albuterol sulfate 90 mcg/actuation 1 inh inhalation QID PRN shortness 02/28/22 aerosol inhaler of breath or wheezing #8.5 grams codeine 10 mg-guaifenesin 100 mg/5 5 ml PO Q6H PRN cold symptoms #120 02/28/22 mL oral liquid (Guaifenesin AC) mL prednisone 20 mg tablet 40 mg PO DAILY rash 5 days #10 tabs 02/28/22 Allergies Allergy/AdvReac Type Severity Reaction Status Date / Time Penicillins [PCN] Allergy Unknown UNKNOWN Verified 11/24/21 08:40 walnut Allergy Unknown Unknown Verified 11/24/21 08:40 Review of Systems Review of Systems: Constitutional : No Weight loss, No Fever, No Chills, No Night Sweats, No Fatigue, No Malaise ENT/Mouth : + nasal congestion/rhinorrhea No Hearing loss, No Ear Pain, No Sinus Pain, No Hoarseness, No sore throat, No Swallowing Difficulty Eyes: No Eye Pain, No Swelling, No Redness, No Foreign Body, No Discharge, No Vision Changes Cardiovascular : No Chest Pain, No SOB, No Dyspnea on Exertion, No Orthopnea, No Edema, No Palpitations Respiratory : + Cough, No Sputum, + Wheezing, No Smoke Exposure, + Dyspnea Gastrointestinal : No Nausea, No Vomiting, No Diarrhea, No Constipation, No abdominal Pain, No Hematochezia, No Melena Genitourinary : no irregular bleeding, No Dysuria, No Urinary Frequency, No Hematuria, No Urinary Incontinence, No Urgency, No Flank Pain, No Urinary Flow Changes, No Hesitancy Musculoskeletal : No joint pain, No Myalgias, No Joint Swelling Skin : No Skin Lesions, No rash Neuro : No Weakness, No Numbness, No Paresthesias, No Loss of Consciousness, No Dizziness, No Headache Psych : No Anxiety/Panic, No Depression, No SI/HI/AH/VH, No Social Issues, Heme/Lymph: No Bruising, No Bleeding,No Lymphadenopathy Endocrine : No Polyuria, No Polydipsia, No Temperature Intolerance Yes all other systems are reviewed and are negative PMFSH Past Medical History Attestation statement: The following information was validated with the patient. Source: old records reviewed, obtained from family and nursing notes reviewed Medical History Alopecia Surgical History No pertinent past surgical history Family History Family History Mother Ovarian cancer Other Mental health disorder Social History Social History Housing: House Alcohol intake: current Alcohol intake frequency: holidays/special occasions only Alcohol type: wine Patient Tobacco Use Status: Never used Tobacco e-Cigarette/Vaping Use: Never Used Second Hand Smoke Exposure: No Advance Directives: No service: No Current occupational status: employed Current occupation: Dental Current occupational exposures/hazards: No Cognitive needs: No Hearing needs: No Vision needs: Yes Physical Exam Vital Signs: Vital Signs: Last Vital Signs Temp 98.2 F 02/28/22 09:11 Pulse 87 02/28/22 10:43 Resp 18 02/28/22 10:43 BP 101/77 02/28/22 09:11 Pulse Ox 98 02/28/22 09:11 O2 Del Method 02/28/22 09:11 BMI result Body Mass Index 25.4 vital signs have been reviewed as normal and appeared to be correct. Blood pressure normal. Heart rate normal. Respiration rate normal. Temperature normal. Oxygen saturation normal. Appearance: Alert. Oriented X3. No acute distress. Head: Normal external exam. Normocephalic. Atraumatic. Eyes: PERRLA. EOMI. Conjunctiva and sclera normal. Eyelids normal. ENT: EAC normal. TM's Normal. Pharynx normal. Uvula midline. Moist mucous membranes. No lesions/ulcerations or masses noted on the tongue. Normal voice. No trismus noted. No drooling noted. No muffled voice noted. Neck: Normal inspection. Neck supple. FROM. No adenopathy. Thyroid Normal. No tracheal deviation noted. No crepitus is noted. No meningeal signs. No neck mass noted. No signs of trauma noted. CVS: Normal heart rate and rhythm. Heart sound normal. Pulses normal throughout. No murmurs/rales/gallops. Respiratory: No respiratory distress. Painless inspiration. Breath sounds normal. No wheezes/rales/rhonchi noted. Chest nontender. No accessory muscle usage noted or decreased air movement noted. Back: Full range of motion noted. Skin: Skin warm and dry. Normal skin color. Normal skin turgor. No rashes/lesions/lacerations noted. Extremities: No lower extremity edema. No calf tenderness is noted. Extremities exhibit normal range of motion and nontender. Neuro: Oriented X 3. No motor deficit. No sensory deficit. Reflexes normal. Normal steady gait. No focal neuro deficits noted. CN's II-XII intact bilaterally? Vascular: + radial pulses/+ 2 distal pedal pulses/+2 dorsalis pedis b/l. Normal cap refill. No cyanosis noted to upper extremity nails and lower extremity toes nails. Course Course Course Narrative: Patient positive for RSV. Negative for COVID and flu. Chest x-ray within normal limits. Patient received a breathing treatment 60 mg of prednisone and Robitussin with codeine. Therefore at this time will DC home with symptomatic treatment instructions return if any new or worsening symptoms follow up with primary care provider. Patient understands agrees with this plan. [facility] - Asthma Medical Records Attestation: I reviewed the patient's medical records. Lab Data Attestation: I reviewed the patient's lab results. Labs: Lab Results 02/28/22 Range/Units 09:15 Influenza Type A (PCR) NEGATIVE (Negative) Influenza Type B (PCR) NEGATIVE (Negative) RSV RNA Qual (PCR) POSITIVE A (Negative) SARS-CoV-2 RNA (RT-PCR) NEGATIVE (Negative) Imaging Data Chest x-ray: Attestation: I personally reviewed and interpreted this imaging study as follows: Radiologist's impression: FINDINGS: No significant abnormality is noted involving the heart, lungs, mediastinum, bony thorax or soft tissues. XR/XR chest 2V IMPRESSION: No acute cardiopulmonary process. Discharge Plan Discharge Clinical Impression: Acute bronchitis with asthma with acute exacerbation, Respiratory syncytial virus (RSV) infection Patient Disposition: Home, Self-Care Instructions: Respiratory Syncytial Virus (ED), Acute Bronchitis (ED) Prescriptions: New albuterol sulfate 0.63 mg/3 mL solution for nebulization 0.63 mg inhalation QID PRN (Reason: shortness of breath or wheezing) Qty: 75 0RF albuterol sulfate 90 mcg/actuation HFA aerosol inhaler 1 inh inhalation QID PRN (Reason: shortness of breath or wheezing) Qty: 8.5 0RF codeine-guaifenesin [Guaifenesin AC] 10-100 mg/5 mL liquid 5 ml PO Q6H PRN (Reason: cold symptoms) Qty: 120 0RF prednisone 20 mg tablet 40 mg PO DAILY 5 Days Qty: 10 0RF No Action albuterol sulfate [Ventolin HFA] 90 mcg/actuation HFA aerosol inhaler 2 puff inhalation Q6H PRN (Reason: shortness of breath or wheezing) Qty: 8.5 0RF Rx Instructions: May substitute for medication approved by insurance albuterol sulfate 2.5 mg/0.5 mL solution for nebulization 2.5 mg inhalation Q20M Qty: 30 0RF Rx Instructions: for up to 3 doses, may substitute for medication accepted by insurance multivitamin [Daily Multi-Vitamin] Tablet 1 tab PO DAILY triamcinolone acetonide 0.5 % ointment 1 appl topical BID Qty: 15 1RF ondansetron 4 mg tablet,disintegrating 4 mg PO DAILY PRN (Reason: nausea and vomiting) Qty: 14 0RF Nexplanon 68 mg implant subdermal ONCE Referrals: Physician,Unknown J [Primary Care Provider] - 2 days (your pcp) Stand Alone Forms: Work/School Release
[2022-02-28] MEDS: Albuterol Sulfate 2.5 MG, Albuterol Sulfate (0.083%) 2.5 MG 5 MG INHALE (10:40)
[2022-02-28 10:43] VITALS: PULSE 87; RESP 18; O2SAT 99
== END 2022-02-28 11:29 | disposition home or self-care (01) ==
PROVIDERS: Emergency Provider Emergency Medicine Emergency Medical Services
DX: J20.5 Acute bronchitis due to respiratory syncytial virus (principal); R05.9 Cough, unspecified; R07.89 Other chest pain; R06.02 Shortness of breath; Z20.822 Contact with and (suspected) exposure to COVID-19; Z79.899 Other long term (current) drug therapy
CPT/HCPCS: 0241U; 71046; 94640; 99283; 99284

== ENCOUNTER 2022-06-24 00:05 | Emergency (ER) | payer OTHER, SELFPAY ==
--- NOTE | ~2022-06-24 | CT_ITS ---
EXAMINATION: CT ABDOMEN AND PELVIS WITHOUT CONTRAST CLINICAL INFORMATION: Left flank pain COMPARISON: 05/21/2019 TECHNIQUE: Multidetector volumetric imaging was performed from the superior aspect of the liver through the pubic symphysis. Sagittal and coronal reformatted images were obtained on the technologist's workstation. This CT examination was performed using dose optimization techniques as appropriate, variously including the following: *Automated exposure control *Adjustment of mA and/or kV according to patient size (this includes techniques or standardized protocols for targeted exams where dose is matched to indication/reason for exam; i.e. extremities or head) *Use of iterative reconstruction technique DLP: 395 mGy-cm FINDINGS: LUNG BASES: The visualized lung bases are unremarkable. LIVER, GALLBLADDER, AND BILIARY TREE: The liver is normal in size, shape, and attenuation. No focal hepatic lesion or biliary ductal dilatation is present. The gallbladder is unremarkable with no evidence of radiopaque gallstones, gallbladder wall thickening, or obvious pericholecystic inflammatory changes. PANCREAS: Unremarkable. SPLEEN: Unremarkable. ADRENAL GLANDS: Unremarkable. KIDNEYS AND URETERS: The kidneys are normal in size, shape, and attenuation. Mild left hydroureteronephrosis. 0.6 cm calculus at the left ureterovesicular junction. BLADDER: Unremarkable. GASTROINTESTINAL TRACT: The small and large bowel are unremarkable. The appendix is unremarkable. ABDOMINAL WALL: No significant hernia is appreciated. LYMPH NODES: Normal. VASCULAR: Unremarkable. PELVIC VISCERA: The uterus and adnexa are unremarkable. OSSEOUS STRUCTURES: No acute or suspicious osseous abnormality. CT/CT abdomen pelvis wo IV con IMPRESSION: Mild left hydroureteronephrosis with a 0.6 cm calculus at the left ureterovesicular junction. Fleischner guidelines were followed.
[2022-06-24 00:11] VITALS: BP 124/78; PULSE 76; RESP 22; TEMP 36.6; O2SAT 100; BMI 26.4
[2022-06-24 00:31] LABS: Hematocrit 39.8 % (37.0-47.0); Hemoglobin 13.6 g/dl (12.0-16.0); Mean Corpuscular HGB Conc 34.2 g/dl (31.0-35.0); Mean Corpuscular Hemoglobin 29.4 pg (27.0-33.0); Mean Corpuscular Volume 86.1 fL (80.0-98.0); Mean Platelet Volume 9.7 fL (9.4-12.3); Platelet Count 250 X10*3/uL (160-400); Red Blood Count 4.62 X10*6/uL (4.20-5.50); Red Cell Distribution Width 12.6 % (11.0-16.0); White Blood Count 10.1 X10*3/uL (4.8-10.8)
[2022-06-24 00:54] LABS: Alanine Aminotransferase 18 U/L (0-31); Albumin Level 4.5 g/dL (3.5-5.0); Alkaline Phosphatase 90 U/L (39-117); Anion Gap 17 (12-20); Aspartate Amino Transferase 18 U/L (5-31); Bilirubin Direct 0.2 mg/dL (0.0-0.5); Bilirubin Total 0.6 mg/dL (0.0-1.0); Blood Urea Nitrogen 14 mg/dL (9-16); Calcium 9.1 mg/dL (8.4-10.2); Carbon Dioxide 20 mmol/L (22-29); Chloride 104 mmol/L (96-108); Creatinine Clr Calc Pharmacy 76.2; Estimated Glomerular Filt Rate > 60; Glucose Random 147 mg/dL (60-115); Lipase 23 U/L (8-78); Potassium 3.5 mmol/L (3.3-5.1); Sodium 137 mmol/L (135-145); Total Protein 7.5 g/dL (6.5-8.0)
--- NOTE | 2022-06-24 01:52 | ED.ABDPAIN ---
HPI - Abdominal Pain General Chief Complaint: Abdominal Pain Stated Complaint: abdominal pain Time Seen by Provider: 06/24/22 01:30 Source: patient Mode of arrival: ambulatory Limitations: no limitations History of Present Illness HPI narrative: Patient with history of kidney stones comes here with severe pain started at 20:00 today left flank radiating to the left lower abdomen is with nausea pain is sharp in character constant no hematuria no abdominal pain Related Data Home Medications Medication Instructions Recorded Confirmed multivitamin (Daily Multi-Vitamin 1 tab PO DAILY 06/14/21 11/24/21 tablet) etonogestrel 68 mg subdermal subdermal ONCE 08/10/21 11/24/21 implant (Nexplanon) Previous Rx's Medication Instructions Recorded triamcinolone acetonide 0.5 % 1 appl topical BID #15 grams 06/14/21 topical ointment albuterol sulfate 2.5 mg/0.5 mL 2.5 mg (0.5 mL) inhalation Q20M 09/08/21 solution for nebulization #30 ea albuterol sulfate 90 mcg/actuation 2 puff inhalation Q6H PRN 09/08/21 aerosol inhaler (Ventolin HFA) shortness of breath or wheezing #8.5 grams ondansetron 4 mg disintegrating 4 mg PO DAILY PRN nausea and 10/05/21 tablet vomiting #14 tabs albuterol sulfate 0.63 mg/3 mL 0.63 mg (3 mL) inhalation QID PRN 02/28/22 solution for nebulization shortness of breath or wheezing #75 mL albuterol sulfate 90 mcg/actuation 1 inh inhalation QID PRN shortness 02/28/22 aerosol inhaler of breath or wheezing #8.5 grams codeine 10 mg-guaifenesin 100 mg/5 5 ml PO Q6H PRN cold symptoms #120 02/28/22 mL oral liquid (Guaifenesin AC) mL prednisone 20 mg tablet 40 mg PO DAILY rash 5 days #10 tabs 02/28/22 oxycodone-acetaminophen 5 mg-325 1 tab PO Q6H PRN pain #20 tabs 06/24/22 mg tablet (Percocet) tamsulosin 0.4 mg capsule (Flomax) 0.4 mg PO BEDTIME #10 caps 06/24/22 Allergies Allergy/AdvReac Type Severity Reaction Status Date / Time Penicillins [PCN] Allergy Unknown UNKNOWN Verified 11/24/21 08:40 walnut Allergy Unknown Unknown Verified 11/24/21 08:40 Review of Systems Review of Systems Yes all other systems are reviewed and are negative [facility] Past Medical History Medical History Alopecia Surgical History No pertinent past surgical history Family History Family History Mother Ovarian cancer Other Mental health disorder Social History Social History Housing: House Alcohol intake: current Alcohol intake frequency: holidays/special occasions only Alcohol type: wine Patient Tobacco Use Status: Never used Tobacco Smoked in Last 30 Days: No e-Cigarette/Vaping Use: Never Used Second Hand Smoke Exposure: No Use of substances other than those prescribed or required for medical reasons: No Advance Directives: No Patient : No service: No Current occupational status: employed Current occupation: Dental Current occupational exposures/hazards: No Cognitive needs: No Hearing needs: No Vision needs: Yes Physical Exam ED Vital Signs: Vital Signs - 24 hr 06/24/22 00:11 06/24/22 02:00 06/24/22 04:33 Temperature 97.8 F 98.0 F Pulse Rate 76 87 75 Respiratory Rate 22 H 15 16 Blood Pressure 124/78 131/79 107/51 L Pulse Oximetry 100 98 100 Oxygen Delivery Method Room Air Room Air Room Air BMI result Body Mass Index 26.4 Appearance: Alert. Oriented X3. In moderate distress Eyes: PERRLA, No Nystagmus ENT: Pharynx normal. Oral Mucosa moist Neck: Normal inspection. Neck supple. CVS: Normal heart rate and rhythm. Pulses normal. Respiratory: No respiratory distress. Equal air entry bilateral, no wheezing/rales/rhonchi Abdomen: Soft and nontender. Bowel sounds are present, no mass palpable, left CVA tenderness ++ Skin: Skin warm and dry. Normal skin color. Normal skin turgor. Extremities: No lower extremity edema. No calf tenderness Neuro: Oriented X 3. No motor deficit. Medical Decision Making Medical Decision Making MDM Narrative: Patient with left flank pain CT scan showed Mild left hydroureteronephrosis with a 0.6 cm calculus at the left ureterovesicular junction. Pain improved after IV hydration pain medication was given Flomax also will discharge patient home advised to follow-up with urologist Lab Data MDM Lab Attestation statement: I reviewed the patient's lab results. 06/24/22 00:06/24/22 00:27 Labs: Lab Results 06/24/22 06/24/22 06/24/22 Range/Units 00: 00:27 02:26 WBC 10.1 (4.8-10.8) X10*3/uL RBC 4.62 (4.20-5.50) X10*6/uL Hgb 13.6 (12.0-16.0) g/dl Hct 39.8 (37.0-47.0) % MCV 86.1 (80.0-98.0) fL MCH 29.4 (27.0-33.0) pg MCHC 34.2 (31.0-35.0) g/dl RDW 12.6 (11.0-16.0) % Plt Count 250 (160-400) X10*3/uL MPV 9.7 (9.4-12.3) fL Absolute Nucleated RBC 0.000 (0.0-0.012) X10*3/uL Nucleated RBC % (auto) 0.0 (0.0-0.2) /100WBC Sodium 137 (135-145) mmol/L Potassium 3.5 (3.3-5.1) mmol/L Chloride 104 (96-108) mmol/L Carbon Dioxide 20 L (22-29) mmol/L Anion Gap 17 (12-20) BUN 14 (9-16) mg/dL Creatinine 0.81 (0.5-1.4) mg/dL Estim Creat Clear Calc 76.2 Estimated GFR > 60 Random Glucose 147 H (60-115) mg/dL Calcium 9.1 (8.4-10.2) mg/dL Total Bilirubin 0.6 (0.0-1.0) mg/dL Direct Bilirubin 0.2 (0.0-0.5) mg/dL AST 18 (5-31) U/L ALT 18 (0-31) U/L Alkaline Phosphatase 90 (39-117) U/L Total Protein 7.5 (6.5-8.0) g/dL Albumin 4.5 (3.5-5.0) g/dL Lipase 23 (8-78) U/L Beta HCG, Quant < 2 mIU/mL Urine Color Yellow Urine Appearance Clear Urine pH 8.5 (5.0-9.0) Ur Specific Marquez 1.015 (1.005-1.025) Urine Protein Negative (Neg-Trace) mg/dL Urine Glucose (UA) Negative (Negative) mg/dL Urine Ketones Trace (Negative) mg/dL Urine Blood Moderate (2+) H (Negative) Urine Nitrite Negative (Negative) Ur Leukocyte Esterase Negative (Negative) Urine RBC >20 H (0-2) /HPF Urine WBC 0-5 (0-5) /HPF Ur Squamous Epith Cells 0-2 (0-2) /HPF Urine Bacteria None Seen (None Seen) Hyaline Casts 0-2 (0-2) /LPF Urine Test (NEGATIVE) 06/24/22 Range/Units 02:26 WBC (4.8-10.8) X10*3/uL RBC (4.20-5.50) X10*6/uL Hgb (12.0-16.0) g/dl Hct (37.0-47.0) % MCV (80.0-98.0) fL MCH (27.0-33.0) pg MCHC (31.0-35.0) g/dl RDW (11.0-16.0) % Plt Count (160-400) X10*3/uL MPV (9.4-12.3) fL Absolute Nucleated RBC (0.0-0.012) X10*3/uL Nucleated RBC % (auto) (0.0-0.2) /100WBC Sodium (135-145) mmol/L Potassium (3.3-5.1) mmol/L Chloride (96-108) mmol/L Carbon Dioxide (22-29) mmol/L Anion Gap (12-20) BUN (9-16) mg/dL Creatinine (0.5-1.4) mg/dL Estim Creat Clear Calc Estimated GFR Random Glucose (60-115) mg/dL Calcium (8.4-10.2) mg/dL Total Bilirubin (0.0-1.0) mg/dL Direct Bilirubin (0.0-0.5) mg/dL AST (5-31) U/L ALT (0-31) U/L Alkaline Phosphatase (39-117) U/L Total Protein (6.5-8.0) g/dL Albumin (3.5-5.0) g/dL Lipase (8-78) U/L Beta HCG, Quant mIU/mL Urine Color Urine Appearance Urine pH (5.0-9.0) Ur Specific Marquez (1.005-1.025) Urine Protein (Neg-Trace) mg/dL Urine Glucose (UA) (Negative) mg/dL Urine Ketones (Negative) mg/dL Urine Blood (Negative) Urine Nitrite (Negative) Ur Leukocyte Esterase (Negative) Urine RBC (0-2) /HPF Urine WBC (0-5) /HPF Ur Squamous Epith Cells (0-2) /HPF Urine Bacteria (None Seen) Hyaline Casts (0-2) /LPF Urine Test NEGATIVE (NEGATIVE) Radiology Impression Discussion of test interpretation with radiology: I have reviewed the radiologist's reading. Radiologist Impression: Mild left hydroureteronephrosis with a 0.6 cm calculus at the left ureterovesicular junction. Medications Administered Discontinued Medications Generic Name Dose Route Start Last Admin Trade Name Freq PRN Reason Stop Dose Admin Sodium Chloride 1,000 mls @ 999 mls/hr 06/24/22 01:55 06/24/22 04:05 Ns IV 06/24/22 02:55 Infused .Q1H1M ONE Infusion Sodium Chloride 1,000 mls @ 999 mls/hr 06/24/22 03:54 06/24/22 05:30 Ns IV 06/24/22 04:54 Infused .Q1H1M ONE Infusion Ketorolac Tromethamine 30 mg 06/24/22 01:59 06/24/22 02:12 Ketorolac Tromethamine 30 Mg/Ml Vial IVPUSH 06/24/22 02:00 30 mg ONCE ONE Administration Morphine Sulfate 4 mg 06/24/22 01:55 06/24/22 02:14 Morphine Sulfate 4 Mg/Ml Cartridge IVPUSH 06/24/22 01:56 4 mg ONCE ONE Administration Protocol Morphine Sulfate 4 mg 06/24/22 03:54 06/24/22 04:05 Morphine Sulfate 4 Mg/Ml Cartridge IVPUSH 06/24/22 03:55 4 mg ONCE ONE Administration Protocol Ondansetron HCl 4 mg 06/24/22 01:55 06/24/22 02:14 Ondansetron Hcl 4 Mg/2 Ml Vial IVPUSH 06/24/22 01:56 4 mg ONCE ONE Administration Tamsulosin HCl 0.4 mg 06/24/22 03:54 06/24/22 04:05 Tamsulosin Hcl 0.4 Mg Capsule PO 06/24/22 03:55 0.4 mg ONCE ONE Administration Discharge Plan Discharge Clinical Impression: Calculus of kidney Patient Disposition: Home, Self-Care Instructions: Kidney Stones (ED) Additional Instructions: Drink plenty of fluids Pain medication and Flomax as prescribed Follow-up with urologist Prescriptions: New oxycodone-acetaminophen [Percocet] 5-325 mg tablet 1 tab PO Q6H PRN (Reason: pain) Qty: 20 0RF Rx Instructions: Partial Fill upon patient request. tamsulosin [Flomax] 0.4 mg capsule 0.4 mg PO BEDTIME Qty: 10 0RF No Action albuterol sulfate [Ventolin HFA] 90 mcg/actuation HFA aerosol inhaler 2 puff inhalation Q6H PRN (Reason: shortness of breath or wheezing) Qty: 8.5 0RF Rx Instructions: May substitute for medication approved by insurance albuterol sulfate 2.5 mg/0.5 mL solution for nebulization 2.5 mg inhalation Q20M Qty: 30 0RF Rx Instructions: for up to 3 doses, may substitute for medication accepted by insurance albuterol sulfate 0.63 mg/3 mL solution for nebulization 0.63 mg inhalation QID PRN (Reason: shortness of breath or wheezing) Qty: 75 0RF albuterol sulfate 90 mcg/actuation HFA aerosol inhaler 1 inh inhalation QID PRN (Reason: shortness of breath or wheezing) Qty: 8.5 0RF codeine-guaifenesin [Guaifenesin AC] 10-100 mg/5 mL liquid 5 ml PO Q6H PRN (Reason: cold symptoms) Qty: 120 0RF prednisone 20 mg tablet 40 mg PO DAILY 5 Days Qty: 10 0RF multivitamin [Daily Multi-Vitamin] Tablet 1 tab PO DAILY triamcinolone acetonide 0.5 % ointment 1 appl topical BID Qty: 15 1RF ondansetron 4 mg tablet,disintegrating 4 mg PO DAILY PRN (Reason: nausea and vomiting) Qty: 14 0RF Nexplanon 68 mg implant subdermal ONCE Referrals: Luiz Arguelles MD [Physician] - 3 days Interventions: ED Discharge Assessment Last Done: 06/24/22 06:03 Discharge Date/Time: 06/24/22 06:03
[2022-06-24 02:00] VITALS: BP 131/79; PULSE 87; RESP 15; O2SAT 98
[2022-06-24] MEDS: Ketorolac Tromethamine 30 MG/ML VIAL IVPUSH (02:12)
[2022-06-24] MEDS: Morphine Sulfate 4 MG/ML CARTRIDGE IVPUSH ×2 (02:14→04:05)
[2022-06-24] MEDS: ondansetron HCL 4 MG/2 ML VIAL IVPUSH (02:14)
[2022-06-24] MEDS: 0.9 % Sodium Chloride 1,000 ML 999 ML IV ×2 (02:21→04:05)
[2022-06-24 02:22] LABS: HCG Quantitative < 2 mIU/mL
[2022-06-24 02:36] LABS: Appearance Urine Clear; Color Urine Yellow; Glucose Urine UA Negative (Negative); Leukocyte Esterase Urine Negative (Negative); Nitrite Urine Negative (Negative); PH 8.5 (5.0-9.0); Specific Gravity - Urine 1.015 (1.005-1.025); UMIC TRIGGER UACC YES; Urine Blood Moderate (2+) (Negative); Urine Ketones Trace mg/dL (Negative); Urine Protein Negative (Neg-Trace)
[2022-06-24 02:39] LABS: Bacteria Urine None Seen (None Seen); Hyaline Casts Urine 0-2 /LPF (0-2); RBC Urine >20 /HPF (0-2); Squamous Epithelial Cell Urine 0-2 /HPF (0-2); WBC Urine 0-5 /HPF (0-5)
[2022-06-24 02:40] LABS: UPreg QC Valid YES; Urine Pregnancy NEGATIVE (NEGATIVE)
[2022-06-24] MEDS: Tamsulosin HCL 0.4 MG CAPSULE PO (04:05)
[2022-06-24 04:33] VITALS: BP 107/51; PULSE 75; RESP 16; TEMP 36.7; O2SAT 100
--- NOTE | 2022-06-24 06:09 | PC.NURSE ---
discharge instructions given/explained, no apparent distress, pt ambulates/safely/independently; all of pt's questions answered; IV cath tip intact upon removal
== END 2022-06-24 06:03 | disposition home or self-care (01) ==
PROVIDERS: Emergency Provider Internal Medicine
DX: N13.2 Hydronephrosis with renal and ureteral calculous obstruction (principal)
CPT/HCPCS: 36415; 74176; 80053; 81001; 81025; 82248; 83690; 84702; 85027; 96361; 96374; 96375; 96376; 99284; 99285; J1885; J2270; J2405

== ENCOUNTER 2022-07-14 08:37 | Outpatient (REF) | payer OTHER, SELFPAY ==
[2022-07-14 17:02] LABS: Urine Cytology See Pathology rpt
== END 2022-07-14 08:38 | disposition home or self-care (01) ==
LOC: HO.LAB 08:37
PROVIDERS: PCP Nurse Practitioner Family; Visit Provider Nurse Practitioner Family
DX: N20.0 Calculus of kidney (principal)
CPT/HCPCS: 88112; 99202

== ENCOUNTER → 2022-09-15 07:49 | Outpatient (BNVA) | payer OTHER, SELFPAY | PROVIDERS: PCP Nurse Practitioner Family; Visit Provider Nurse Practitioner Family | DX: G43.509 Persistent migraine aura without cerebral infarction, not intractable, without status migrainosus (principal); G47.19 Other hypersomnia; G47.9 Sleep disorder, unspecified; R06.83 Snoring; R20.2 Paresthesia of skin | CPT/HCPCS: 99202 ==

== ENCOUNTER 2023-01-11 12:22 | Outpatient (REF) | payer OTHER, SELFPAY ==
--- NOTE | ~2023-01-11 | US_ITS ---
EXAMINATION: US RETROPERITONEAL LIMITED (RENAL ONLY) CLINICAL INFORMATION: Calculus of kidney. COMPARISON: CT abdomen and pelvis 06/24/2022. TECHNIQUE: Real-time imaging of the kidneys. FINDINGS: RIGHT KIDNEY: 10.6 x 4.3 x 6.1 cm (SAG x AP x TRV). The kidney is normal in size, contour, and echogenicity. Renal cortical thickness is normal. No calculi or focal parenchymal lesions. No hydronephrosis. LEFT KIDNEY: 9.0 x 4.8 x 4.8 cm (SAG x AP x TRV). The kidney is normal in size, contour, and echogenicity. Renal cortical thickness is normal. No calculi or focal parenchymal lesions. No hydronephrosis. US/US renal BI IMPRESSION: Unremarkable examination.
== END 2023-01-11 12:23 | disposition home or self-care (01) ==
LOC: HO.US 12:22
PROVIDERS: PCP Nurse Practitioner Family; Visit Provider Nurse Practitioner Family
DX: N20.0 Calculus of kidney (principal)
CPT/HCPCS: 76775

== ENCOUNTER 2023-01-23 13:05 | Outpatient (AMB) | payer OTHER, SELFPAY ==
--- NOTE | 2023-01-23 13:10 | MHC.OFFVIS ---
Intake Intake Visit Reasons: 6m/US(set) Intake Note: Patient presents for follow up kidney stone/ultrasound (imaging 01/11/23) Urology Medications: Vitamin B6 Blood Thinner: none Education Program Specialist Required: No Accompanied by: Self / Same As Patient Allergies Penicillins [PCN] Allergy (Unknown, Verified 01/23/23 13:16) UNKNOWN walnut Allergy (Unknown, Verified 01/23/23 13:16) Unknown HPI HPI Comments History of Present Illness Details Lisa is a pleasant 38-year-old female patient of Dr. Maravilla. She presents to the office today for follow-up. Of note, patient was seen approximately 6 months ago as a new patient for nephrolithiasis at which time a renal ultrasound was ordered for further assessment evaluation. These results were reviewed with the patient today. Bilateral kidneys with no calculi, lesions, and or hydronephrosis noted. Renal ultrasound unremarkable. When asked patient denies any bothersome urinary issues or concerns at the time. She denies urinary urgency, urinary frequency, incontinence, nocturia, hematuria, dysuria, foul smelling urine, changes to urinary stream, flank pain, fever, and or chills. Discussed at length potential causes for nephrolithiasis. Discussed further nephrolithiasis workup with 24 hour urine and labs verses surveillance monitoring. Discussed and stressed the importance of drinking plenty of water daily. When asked she reports to be drinking plenty of water daily. She otherwise offers no other issues or concerns at this time. [facility] Medical History Alopecia Surgical History No pertinent past surgical history Family History Mother Ovarian cancer Hypertension Hypercholesteremia Father Asthma Alcoholism Liver disease Sister Asthma Depression Anemia Osteoporosis Other Mental health disorder Social History Housing: House Alcohol intake: never Patient Tobacco Use Status: Never used Tobacco e-Cigarette/Vaping Use: Never Used Second Hand Smoke Exposure: No service: No Current occupational status: employed Current occupation: Dental Current occupational exposures/hazards: No Cognitive needs: No Hearing needs: No Vision needs: Yes Review of Systems Const All systems reviewed & are unremarkable except as noted in HPI and below Eyes Reports no additional complaints ENT Reports no additional complaints Card Reports no additional complaints Resp Reports no additional complaints GI Reports no additional complaints Reports as per HPI Musc Reports no additional complaints Neuro Reports no additional complaints Psych Reports no additional complaints Endo Reports no additional complaints Vinay/Lymph Reports no additional complaints Aller/Immun Reports no additional complaints Physical Exam Const General: cooperative, healthy appearing, comfortable, no acute distress, well developed, alert and awake Nutritional Appearance: average body habitus Orientation/consciousness: patient oriented x3 Limitations: no limitations HEENT Head: Yes normal to inspection, Yes normocephalic and Yes atraumatic Ears: hearing grossly normal bilaterally Eyes General: appearance normal, both eyes and all related structures Neck Neck: Yes normal visual inspection and Yes trachea midline Chest Chest palpation & inspection: normal inspection of the chest Resp Effort & Inspection: normal respiratory effort and able to speak in complete sentences Cardio Rate: regular rate GI Inspection: Yes normal to inspection General: Yes no CVA tenderness Back/Spine/Pelvis Back: no CVA tenderness Skin General skin exam: no rashes or lesions noted Neuro General: patient oriented x3 Extrem General: Yes normal to inspection Psych Appearance: grossly normal and well kempt Mental Status: mental status grossly normal Speech and movement: Normal speech and movement present and Clear speech present Affect: normal affect Attitude: cooperative Thought process: Normal thought process present Thought content: Normal thought content present Insight: Fair insight present (Psych) Judgement: Fair judgement present (Psych) Results AMB Urinalysis, Automated UA Leukoctes 0 Ness/uL Last Edit by [employer] on 01/23/23 13:40 UA Nitrite Negative Last Edit by [employer] on 01/23/23 13:40 UA Urobilinogen 0.2 mg/dL Last Edit by [employer] on 01/23/23 13:40 UA Protein 0 mg/dL Last Edit by [employer] on 01/23/23 13:40 UA pH 6.0 Last Edit by [employer] on 01/23/23 13:40 UA Blood 25 Silvino/uL Last Edit by [employer] on 01/23/23 13:40 UA Specific Taylor 1.020 Last Edit by [employer] on 01/23/23 13:40 UA Ketone Negative Last Edit by Jessika Haley on 01/23/23 13:40 UA Bilirubin 0 mg/dL Last Edit by Jessika Haley on 01/23/23 13:40 UA Glucose 0 mg/dL Last Edit by Jessika Hernandezvirgil on 01/23/23 13:40 Results Reviewed Results Reviewed: Laboratory Last Values Urine pH (Auto) 6.0 01/23/23 13:17 Specific Taylor (Auto) 1.020 01/23/23 13:17 Urine Protein (Auto) 0 mg/dL 01/23/23 13:17 Glucose (UA)(Auto) 0 mg/dL 01/23/23 13:17 Urine Ketones (Auto) Negative 01/23/23 13:17 Urine Blood (Auto) 25 Silvino/uL 01/23/23 13:17 Urine Nitrite (Auto) Negative 01/23/23 13:17 Urine Bilirubin (Auto) 0 mg/dL 01/23/23 13:17 Urine Urobilinogen (Auto) 0.2 mg/dL 01/23/23 13:17 Leukocyte Esterase (Auto) 0 Ness/uL 01/23/23 13:17 Date of Service: 01/11/23 EXAMINATION: US RETROPERITONEAL LIMITED (RENAL ONLY) FINDINGS: RIGHT KIDNEY: 10.6 x 4.3 x 6.1 cm (SAG x AP x TRV). The kidney is normal in size, contour, and echogenicity. Renal cortical thickness is normal. No calculi or focal parenchymal lesions. No hydronephrosis. LEFT KIDNEY: 9.0 x 4.8 x 4.8 cm (SAG x AP x TRV). The kidney is normal in size, contour, and echogenicity. Renal cortical thickness is normal. No calculi or focal parenchymal lesions. No hydronephrosis. IMPRESSION: Unremarkable examination. Assessment & Plan Assessment & Plan (1) Nephrolithiasis: Code(s): N20.0 - Calculus of kidney Plan In office urinalysis results reviewed with the patient today; as noted above. Recent renal ultrasound results reviewed with the patient today; as noted above. Discussed at length potential causes for nephrolithiasis. Discussed further nephrolithiasis workup with 24 hour urine and labs verses surveillance monitoring. Discussed, educated, instructed on the importance of drinking plenty of water daily. Patient denies any bothersome urinary issues or concerns at this time Patient reports be happy with current voiding parameters. Continue vitamin B6. Continue adding 1 oz of lemon juice to water daily. Will obtain renal ultrasound in 6 months. Follow-up in 6 months with imaging to be completed prior; or sooner with any issues, concerns, and or questions. Orders: Orders AMB Urinalysis Automated Today Z13.9 - Encounter for screening, unspecified US renal BI 6 Months N20.0 - Calculus of kidney Patient Instructions: The patient had an opportunity to ask questions regarding the treatment plan. All questions were answered. Physical exam, labs, and imaging were discussed and reviewed in detail. As well as risks, benefits, and discussion of treatment choices. No major barriers to understanding were identified. The patient expressed understanding and agreement with the above treatment plan. The patient was made aware they should contact our office by phone for worsening of their current condition, the appearance of new symptoms, or with any questions or concerns. Compliance is encouraged with any medications and follow up testing that is ordered. It is a privilege to be allowed the opportunity to participate in? your urological care.? Again, if you have any questions or concerns If you have any questions or concerns please do not hesitate to contact me. The office is [phone]. This note is constructed using voice recognition software. While every effort has been made to ensure accuracy supervisor statement clerks errors may have been included. Yours sincerely, JEAN PIERRE Garrett Coding Level of Care Code Est Pt Level 3 (27589) Diagnoses Nephrolithiasis N20.0
== END 2023-01-23 14:38 | disposition home or self-care (01) ==
PROVIDERS: PCP Nurse Practitioner Family; Visit Provider Nurse Practitioner Family
DX: N20.0 Calculus of kidney (principal); Z13.9 Encounter for screening, unspecified
CPT/HCPCS: 99213

== ENCOUNTER → 2023-01-23 13:05 | Outpatient (BNVA) | payer OTHER, SELFPAY | PROVIDERS: Visit Provider Nurse Practitioner Family | DX: N20.0 Calculus of kidney (principal) | CPT/HCPCS: 81003; 99212 ==

== ENCOUNTER 2023-02-06 09:09 | Outpatient (REF) | payer OTHER, SELFPAY ==
--- NOTE | ~2023-02-06 | MR_ITS ---
EXAMINATION: MR BRAIN WITHOUT CONTRAST CLINICAL INFORMATION: Persistent migraines. COMPARISON: None. TECHNIQUE: Multiplanar, multisequence imaging of the brain was performed without contrast. FINDINGS: No diffusion abnormalities are identified to suggest an acute or subacute infarct. The ventricles are normal in size. No mass effect or midline shift is seen. No brain parenchymal signal abnormality is noted. No extra-axial fluid collections are seen. The brainstem and cerebellum are normal. The gradient refocused acquisition is normal. The craniovertebral junction, marrow signal, and midline structures are normal. The major intracranial flow voids at the level of the [place] of [place] are preserved. The dural venous sinus flow voids are maintained. The mastoid air cells are well aerated. There is mild ethmoid sinus mucosal thickening. MR/MR head/brain wo con IMPRESSION: Normal MRI of the brain. No acute process.
== END 2023-02-06 09:10 | disposition home or self-care (01) ==
LOC: HO.MRI 09:09
PROVIDERS: PCP Nurse Practitioner Family; Visit Provider Nurse Practitioner Family
DX: G43.509 Persistent migraine aura without cerebral infarction, not intractable, without status migrainosus (principal); R20.2 Paresthesia of skin
CPT/HCPCS: 70551

== ENCOUNTER 2023-09-02 19:11 | Emergency (ER) | payer OTHER, SELFPAY ==
--- NOTE | ~2023-09-02 | CT_ITS ---
EXAMINATION: CT CERVICAL SPINE WITHOUT CONTRAST CLINICAL INFORMATION: Pain COMPARISON: None available. TECHNIQUE: Multiple detector CT scan of cervical spine with multiplanar reconstructions This CT examination was performed using dose optimization techniques as appropriate, variously including the following: *Automated exposure control *Adjustment of mA and/or kV according to patient size (this includes techniques or standardized protocols for targeted exams where dose is matched to indication/reason for exam; i.e. extremities or head) *Use of iterative reconstruction technique DLP: 309 mGy-cm FINDINGS: Reversal of the normal cervical lordosis. No fracture subluxation. No prevertebral soft tissue swelling. No paraspinal soft tissue mass. Apices clear. At the C5-C6 level, there is relatively severe degenerative disc space narrowing with bulky anterior posterior marginal osteophytes which results in moderate central canal encroachment. Neural foramen are similarly narrowed due to hypertrophic changes about the uncovertebral joints. Posterior elements intact. CT/CT cervical spine wo IV con IMPRESSION: Advanced spondylosis C5-C6. No fracture. Consider MRI if patient has radiculopathy. Fleischner guidelines were followed.
--- NOTE | 2023-09-02 19:14 | ECG_ITS ---
Test Reason : CP Blood Pressure : / mmHG Vent. Rate : 104 BPM Atrial Rate : 104 BPM P-R Int : 152 ms QRS Dur : 068 ms QT Int : 312 ms P-R-T Axes : 071 066 028 degrees QTc Int : 410 ms Sinus tachycardia Possible Left atrial enlargement Nonspecific T wave abnormality Abnormal ECG When compared with ECG of 15-NOV-2021 06:19, Nonspecific T wave abnormality now evident in Lateral leads Referred By: Generic ED Physician Electronically Signed By:MARY ANN BELTRÁN
[2023-09-02 19:21] VITALS: BP 136/76; PULSE 111; RESP 20; TEMP 37.1; O2SAT 97; BMI 25.3
[2023-09-02 19:38] LABS: Hematocrit 38.3 % (37.0-47.0); Hemoglobin 13.3 g/dl (12.0-16.0); Mean Corpuscular HGB Conc 34.7 g/dl (31.0-35.0); Mean Corpuscular Hemoglobin 29.6 pg (27.0-33.0); Mean Corpuscular Volume 85.1 fL (80.0-98.0); Mean Platelet Volume 9.9 fL (9.4-12.3); Platelet Count 180 X10*3/uL (160-400); Red Cell Distribution Width 12.8 % (11.0-16.0)
[2023-09-02 19:45] LABS: INTERNATIONAL NORM RATIO 1.1 (0.9-1.1); Prothrombin Time 13.1 SEC (11.1-13.3)
[2023-09-02 19:55] LABS: Alanine Aminotransferase 17 U/L (0-31); Albumin Level 4.2 g/dL (3.5-5.0); Alkaline Phosphatase 79 U/L (39-117); Anion Gap 13 (12-20); Aspartate Amino Transferase 17 U/L (5-31); Bilirubin Total 0.9 mg/dL (0.0-1.0); Blood Urea Nitrogen 12 mg/dL (9-16); Calcium 9.4 mg/dL (8.4-10.2); Carbon Dioxide 24 mmol/L (22-29); Chloride 104 mmol/L (96-108); Estimated Glomerular Filt Rate > 60; Glucose Random 104 mg/dL (60-115); Potassium 3.6 mmol/L (3.3-5.1); Sodium 137 mmol/L (135-145); Total Protein 7.5 g/dL (6.5-8.0)
--- NOTE | 2023-09-02 20:10 | ED.CHESTPAIN ---
HPI - Chest Pain General Chief Complaint: Chest Pain Stated Complaint: chest pain left arm pain Time Seen by Provider: 09/02/23 20:06 Source: patient Mode of arrival: ambulatory Limitations: no limitations History of Present Illness HPI narrative: Patient is a 38 year old assigned female at with a history of asthma, migraines, and anxiety presenting to the emergency department today with chest pain, palpitations, migraine, and left sided neck pain. Patient states that over the last 3 days she has had chest pain, palpitations, a migraine, and left sided neck pain. Patient also states that the neck pain radiates into her left arm. Patient denies any dizziness, lightheadedness, abdominal pain, nausea, vomiting, fever, chills, blurry vision, double vision, loss of vision, difficulty breathing, shortness of breath, back pain, night sweats, pain with urination, increased urinary frequency, increased urinary urgency, blood in her urine or stool, syncope or a near syncopal episode, recent trauma or falls, bowel incontinence, bladder incontinence, bowel retention, bladder retention, or any other complaints at this time. Onset (ago): day(s) (3) Relieving factors: nothing Exacerbating factors: nothing Related Data Home Medications ?Medication ?Instructions ?Recorded ?Confirmed etonogestrel 68 mg subdermal subdermal ONCE 08/10/21 09/28/22 implant (Nexplanon) Previous Rx's ?Medication ?Instructions ?Recorded triamcinolone acetonide 0.5 % 1 appl topical BID #15 grams 06/14/21 topical ointment albuterol sulfate 2.5 mg/0.5 mL 2.5 mg (0.5 mL) inhalation Q20M 09/08/21 solution for nebulization #30 ea albuterol sulfate 90 mcg/actuation 2 puff inhalation Q6H PRN 09/08/21 aerosol inhaler (Ventolin HFA) shortness of breath or wheezing #8.5 grams albuterol sulfate 0.63 mg/3 mL 0.63 mg (3 mL) inhalation QID PRN 02/28/22 solution for nebulization shortness of breath or wheezing #75 mL albuterol sulfate 90 mcg/actuation 1 inh inhalation QID PRN shortness 02/28/22 aerosol inhaler of breath or wheezing #8.5 grams erenumab-aooe 140 mg/mL 140 mg subcut ONCE 30 days #1 mL 09/15/22 subcutaneous auto-injector (Aimovig Autoinjector) naratriptan 2.5 mg tablet See Rx Instructions PO .COMPLEX 09/15/22 PRN migraine headache 30 days #12 tabs riboflavin (vitamin B2) 400 mg 400 mg PO DAILY 30 days #30 tabs 09/15/22 tablet pyridoxine (vitamin B6) 100 mg 100 mg PO DAILY 90 days #90 tabs 04/19/23 tablet albuterol sulfate 90 mcg/actuation 1 puff inhalation QID #8.5 grams 09/02/23 aerosol inhaler (ProAir HFA) celecoxib 200 mg capsule (Celebrex) 200 mg PO BID 2 weeks #28 caps 09/02/23 ondansetron 4 mg disintegrating 4 mg PO Q8H 3 days #9 tabs 09/02/23 tablet Allergies Allergy/AdvReac Type Severity Reaction Status Date / Time Penicillins [PCN] Allergy Severe Anaphylaxis Verified 09/02/23 19:25 walnut Allergy Severe Anaphylaxis Verified 09/02/23 19:25 blueberry Allergy Mild Hives Verified 09/02/23 19:25 Review of Systems Constitutional: Constitutional: Reports no additional constitutional complaints, Denies chills, Denies fever(s), Reports headache(s) and Denies night sweats Eyes: Eyes: Reports no additional eye complaints, Denies blurry vision, Denies change in vision, Denies diplopia, Denies eye discharge, Denies loss of vision and Denies eye pain ENT: Denies dizziness, Reports headache(s) and Reports neck pain Cardiovascular: Cardiovascular: Reports no additional cardiovascular complaints, Reports chest pain, Denies lightheadedness, Denies Loss of Consciousness, Reports palpitations and Denies dyspnea Respiratory: Respiratory: Reports no additional respiratory complaints and Denies dyspnea Gastrointestinal: Gastrointestinal: Reports no additional gastrointestinal complaints, Denies abdominal pain, Denies melena, Denies hematochezia, Denies change in bowel habits and Denies change in stool character Genitourinary: Genitourinary: Denies hematuria, Denies urinary frequency, Denies dysuria, Denies urinary incontinence, Denies urinary hesitancy and Denies urinary urgency Musculoskeletal: Musculoskeletal: Reports no additional musculoskeletal complaints, Reports neck pain, Denies numbness and Denies tingling Neurologic: Denies dizziness, Reports headache(s), Denies loss of vision, Denies numbness and Denies tingling Psychiatric: Psychiatric: Reports no additional psychiatric complaints Endocrine: Endocrine: Reports no additional endocrine complaints and Reports palpitations Hematologic/Lymphatic: Hematologic/Lymphatic: Reports no additional hematologic/lymphatic complaints Allergic/Immunologic: Allergic/Immunologic: Reports no additional allergic/immunologic complaints PMFSH Past Medical History Attestation statement: The following information was validated with the patient. Source: old records reviewed and nursing notes reviewed Medical History Alopecia Surgical History No pertinent past surgical history Family History Family History Mother Ovarian cancer Hypertension Hypercholesteremia Father Asthma Alcoholism Liver disease Sister Asthma Depression Anemia Osteoporosis Other Mental health disorder Social History Social History Housing: House Alcohol intake: never Patient Tobacco Use Status: Never used Tobacco e-Cigarette/Vaping Use: Never Used Second Hand Smoke Exposure: No Advance Directives: No Advance Directives Information Provided: No Do you have a plan to hurt others: No Plan service: No Current occupational status: employed Current occupation: Dental Current occupational exposures/hazards: No Cognitive needs: No Hearing needs: No Vision needs: Yes Physical Exam Vital Signs: Vital Signs: Last Vital Signs Temp 100.4 F 09/02/23 23:42 Pulse 91 09/02/23 23:42 Resp 16 09/02/23 23:42 BP 108/63 09/02/23 23:42 Pulse Ox 98 09/02/23 23:42 O2 Del Method Room Air 09/02/23 23:42 BMI result Body Mass Index 25.3 Const: General: cooperative, no acute distress, alert and awake Nutritional Appearance: well nourished Orientation/consciousness: patient oriented x3 Limitations: no limitations HEENT: Head: Yes normal to inspection and Yes atraumatic Ears: hearing grossly normal bilaterally and external ears normal General nose exam: Normal external nose present, no nasal discharge noted and no epistaxis Face and sinus: Yes normal facial exam, No abrasion and No laceration Mouth: Normal oral and palatal mucosa present, no drooling and no muffled voice Eyes: General: appearance normal, both eyes and all related structures Periorbital: periorbital findings normal Eyelids: Yes eyelids normal Conjunctivae: conjunctivae normal Pupils: Equal, round and reactive pupils present EOM: EOMs intact bilaterally Neck: Neck: Yes normal visual inspection, Yes full ROM and Yes no lymphadenopathy Chest: Chest palpation & inspection: normal inspection of the chest Resp: Effort & Inspection: normal respiratory effort and able to speak in complete sentences GI: Inspection: Yes normal to inspection Neuro: General: patient oriented x3 and moves all extremities Cranial nerves: Yes Equal, round and reactive pupils present Cognition (Neuro): normal cognition Motor exam (neuro): 5/5 motor strength present throughout Sensory Exam: Normal double simultaneous stimulation for sensation Coordination: tzgfeb-[id number] test normal Extrem: General: Yes normal to inspection, Yes full ROM and Yes capillary refill normal Psych: Appearance: grossly normal Mental Status: mental status grossly normal Affect: normal affect Attitude: cooperative Thought process: Normal thought process present Thought content: Normal thought content present Insight: Good insight present (Psych) Medications Administered Discontinued Medications Generic Name Dose Route Start Last Admin Trade Name Guerda PRN Reason Stop Dose Admin Sodium Chloride 1,000 mls @ 999 mls/hr 09/02/23 20:15 09/02/23 22:27 Ns IV 09/02/23 21:15 Infused .Q1H1M DANGELO Infusion Morphine Sulfate 4 mg 09/02/23 20:14 09/02/23 20:32 Morphine Sulfate 4 Mg/Ml Cartridge IVPUSH 09/02/23 20:15 4 mg ONCE ONE Administration Protocol Ondansetron HCl 4 mg 09/02/23 20:14 09/02/23 20:32 Ondansetron Hcl 4 Mg/2 Ml Vial IVPUSH 09/02/23 20:15 4 mg ONCE ONE Administration Pantoprazole Sodium 40 mg 09/02/23 20:14 09/02/23 20:32 Pantoprazole Sodium 40 Mg/10 Ml Vial IVPUSH 09/02/23 20:15 40 mg ONCE ONE Administration Medical Decision Making Medical Decision Making MDM Narrative: Patient is a 38 year old assigned female at with a history of asthma, migraines, and anxiety presenting to the emergency department today with chest pain, palpitations, migraine, and left sided neck pain. Patient's physical exam was unremarkable. Patient's blood work was unremarkable. Patient's EKG was unremarkable. Patient's cervical CT showed no acute process but did show advanced spondylosis C5-C6 for which they recommended an MRI. I explained my physical exam findings as well as all test results to the patient and the patient's mother. I answered all questions asked by the patient and the patient's mother. Patient states that she already knew about the cervical spine issues and has followed up with a specialist for it. Patient states that she was given medications for her migraines by her neurologist previously but they don't seem to help. Patient states that she would like to try something else for pain and to use the Tramadol she is already prescribed at home. Patient states that her Tramadol makes her nauseous and she would like some Zofran sent in. Additionally, patient states that she is out of her albuterol inhaler and would like a refill of that. I stressed the importance of the patient taking her medication as prescribed. I stressed the importance of the patient following up with her primary care provider. I stressed the importance of the patient returning to the emergency department immediately if her symptoms were to worsen or if she were to develop any dizziness, shortness of breath, difficulty breathing, chest pain, blurry vision, loss of vision, nausea, vomiting, abdominal pain, fever, chills, back pain, or any other complaints. Patient and the patient's mother verbalized agreement and understanding with this treatment plan and discharge. Differential Diagnosis Differential Diagnoses: The differential diagnosis associated with the presentation includes NSTEMI STEMI Cervical radiculopathy Anxiety Chest pain Non-cardiac chest pain Admission/Observation Consideration of admission/observation: Escalation of care including admission/observation considered Patient would have been admitted to the hospital had her work up had any findings where hospital admission was appropriate and her clinical presentation warranted hospital admission. Lab Data [facility] [place] Lab Attestation statement: I reviewed the patient's lab results. My interpretation of these results are in the [facility] [place] Rationale portion of this note. 09/02/23 19:31 09/02/23 19:31 Labs: Lab Results 09/02/23 09/02/23 Range/Units 19:31 20:51 WBC 9.0 (4.8-10.8) X10*3/uL RBC 4.50 (4.20-5.50) X10*6/uL Hgb 13.3 (12.0-16.0) g/dl Hct 38.3 (37.0-47.0) % MCV 85.1 (80.0-98.0) fL MCH 29.6 (27.0-33.0) pg MCHC 34.7 (31.0-35.0) g/dl RDW 12.8 (11.0-16.0) % Plt Count 180 D (160-400) X10*3/uL MPV 9.9 (9.4-12.3) fL Absolute Nucleated RBC 0.000 (0.0-0.012) X10*3/uL Nucleated RBC % (auto) 0.0 (0.0-0.2) /100WBC PT 13.1 (11.1-13.3) SEC INR 1.1 (0.9-1.1) Sodium 137 (135-145) mmol/L Potassium 3.6 (3.3-5.1) mmol/L Chloride 104 (96-108) mmol/L Carbon Dioxide 24 (22-29) mmol/L Anion Gap 13 (12-20) BUN 12 (9-16) mg/dL Creatinine 0.75 (0.5-1.4) mg/dL Estim Creat Clear Calc 80.0 Estimated GFR > 60 Random Glucose 104 (60-115) mg/dL Calcium 9.4 (8.4-10.2) mg/dL Total Bilirubin 0.9 (0.0-1.0) mg/dL AST 17 (5-31) U/L ALT 17 (0-31) U/L Alkaline Phosphatase 79 (39-117) U/L Troponin I High Sens < 2.7 (<3.5-17.0) ng/L Total Protein 7.5 (6.5-8.0) g/dL Albumin 4.2 (3.5-5.0) g/dL Influenza Type A (PCR) NEGATIVE (Negative) Influenza Type B (PCR) NEGATIVE (Negative) RSV RNA Qual (PCR) NEGATIVE (Negative) SARS-CoV-2 RNA (RT-PCR) NEGATIVE (Negative) Independent Interpretation I performed an independent interpretation of an: EKG and CT Scan Interpretation: My interpretation is in agreement with the radiologist's impression of this imaging study. EXAMINATION: CT CERVICAL SPINE WITHOUT CONTRAST CLINICAL INFORMATION: Pain COMPARISON: None available. TECHNIQUE: Multiple detector CT scan of cervical spine with multiplanar reconstructions This CT examination was performed using dose optimization techniques as appropriate, variously including the following: *Automated exposure control *Adjustment of mA and/or kV according to patient size (this includes techniques or standardized protocols for targeted exams where dose is matched to indication/reason for exam; i.e. extremities or head) *Use of iterative reconstruction technique DLP: 309 mGy-cm FINDINGS: Reversal of the normal cervical lordosis. No fracture subluxation. No prevertebral soft tissue swelling. No paraspinal soft tissue mass. Apices clear. At the C5-C6 level, there is relatively severe degenerative disc space narrowing with bulky anterior posterior marginal osteophytes which results in moderate central canal encroachment. Neural foramen are similarly narrowed due to hypertrophic changes about the uncovertebral joints. Posterior elements intact. CT/CT cervical spine wo IV con IMPRESSION: Advanced spondylosis C5-C6. No fracture. Consider MRI if patient has radiculopathy. Fleischner guidelines were followed. Dictated By: Mohit Mcadams MD Signed By: Electronically signed by Mohit Mcadams MD 09/02/23 2256 Vent. Rate: 104 BPM Atrial Rate: 104 BPM P-R Int: 152 ms QRS Dur: 068 ms QT Int: 312 ms P-R-T Axes: 071 066 028 degrees QTc Int: 410 ms Sinus tachycardia Possible Left atrial enlargement Nonspecific T wave abnormality Abnormal ECG When compared with ECG of 15-NOV-2021 06:19, Nonspecific T wave abnormality now evident in Lateral leads DD/ 14 Radiology Impression Discussion of test interpretation with radiology: I have reviewed the radiologist's reading. Prescription Management I considered prescription management with: Pain Medication (patient prescribed pain medication) Critical Care Time Critical Care Time Critical Care Time: Yes Total Critical Care Time: 88 Attestation: I spent 88 minutes of Critical Care Time with this patient. This does not include time spent on separately reported billable procedures. Discharge Plan Discharge Clinical Impression: Cervical radiculopathy, Chest pain, Migraine Patient Disposition: Home, Self-Care Instructions: Chest Pain (DC), Migraine Headache (ED), Cervical Radiculopathy (ED) Additional Instructions: Follow up with your primary care provider, your neurologist, and a reproduction specialist. Return to the emergency department immediately if your symptoms worsen or if you develop any dizziness, shortness of breath, difficulty breathing, chest pain, blurry vision, loss of vision, nausea, vomiting, abdominal pain, fever, chills, back pain, or any other complaints. Prescriptions: New celecoxib [Celebrex] 200 mg capsule 200 mg PO BID 14 Days Qty: 28 0RF ondansetron 4 mg tablet,disintegrating 4 mg PO Q8H 3 Days Qty: 9 0RF albuterol sulfate [ProAir HFA] 90 mcg/actuation HFA aerosol inhaler 1 puff inhalation QID Qty: 8.5 0RF No Action pyridoxine (vitamin B6) 100 mg tablet 100 mg PO DAILY 90 Days Qty: 90 2RF albuterol sulfate [Ventolin HFA] 90 mcg/actuation HFA aerosol inhaler 2 puff inhalation Q6H PRN (Reason: shortness of breath or wheezing) Qty: 8.5 0RF Rx Instructions: May substitute for medication approved by insurance albuterol sulfate 2.5 mg/0.5 mL solution for nebulization 2.5 mg inhalation Q20M Qty: 30 0RF Rx Instructions: for up to 3 doses, may substitute for medication accepted by insurance albuterol sulfate 0.63 mg/3 mL solution for nebulization 0.63 mg inhalation QID PRN (Reason: shortness of breath or wheezing) Qty: 75 0RF albuterol sulfate 90 mcg/actuation HFA aerosol inhaler 1 inh inhalation QID PRN (Reason: shortness of breath or wheezing) Qty: 8.5 0RF triamcinolone acetonide 0.5 % ointment 1 appl topical BID Qty: 15 1RF Nexplanon 68 mg implant subdermal ONCE Aimovig Autoinjector 140 mg/mL auto-injector 140 mg subcut ONCE 30 Days Qty: 1 6RF riboflavin (vitamin B2) 400 mg tablet 400 mg PO DAILY 30 Days Qty: 30 6RF naratriptan 2.5 mg tablet See Rx Instructions PO .COMPLEX PRN (Reason: migraine headache) 30 Days Qty: 12 6RF Rx Instructions: take 1/2 - 1 tab at onset of headache; if no relief may repeat 1 tab after at least 4 hrs; max = 2 tabs/24 hrs orally PRN; Referrals: [facility] [Provider Group] (Call to establish and follow up with a reproduction specialist. ) Joseline Maravilla FNP [Primary Care Provider] - Stand Alone Forms: Work/School Release Interventions: ED Discharge Assessment Last Done: 09/02/23 23:42 Discharge Date/Time: 09/03/23 00:01 Print Language: Micronesian
[2023-09-02 20:15] LABS: Troponin-I High Sensitivity < 2.7 ng/L (<3.5-17.0)
[2023-09-02] MEDS: ondansetron HCL 4 MG/2 ML VIAL IVPUSH (20:32)
[2023-09-02] MEDS: 0.9 % Sodium Chloride 1,000 ML 999 ML IV (20:32)
[2023-09-02] MEDS: Pantoprazole Sodium 40 MG/10 ML VIAL IVPUSH (20:32)
[2023-09-02] MEDS: Morphine Sulfate 4 MG/ML CARTRIDGE IVPUSH (20:32)
[2023-09-02 21:36] LABS: Influenza A PCR NEGATIVE (Negative); Influenza B PCR NEGATIVE (Negative); Resp Syncy Virus RNA Qual PCR NEGATIVE (Negative); SARS COV2 PCR INHOUSE NEGATIVE (Negative)
[2023-09-02 22:09] VITALS: BP 112/65; PULSE 91; RESP 18; TEMP 37.9; O2SAT 98
[2023-09-02 23:42] VITALS: BP 108/63; PULSE 91; RESP 16; TEMP 38; O2SAT 98
== END 2023-09-03 00:01 | disposition home or self-care (01) ==
PROVIDERS: Physician Assistant Medical; Emergency Provider Internal Medicine; PCP Nurse Practitioner Family
DX: M47.22 Other spondylosis with radiculopathy, cervical region (principal); R07.9 Chest pain, unspecified; G43.909 Migraine, unspecified, not intractable, without status migrainosus
CPT/HCPCS: 0241U; 36415; 72125; 80053; 84484; 85027; 85610; 93005; 96361; 96374; 96375; 99284; 99285; C9113; J2270; J2405

== ENCOUNTER → 2023-09-02 19:14 | Outpatient (BNV) | payer OTHER, SELFPAY | PROVIDERS: Emergency Provider Internal Medicine; PCP Nurse Practitioner Family; Visit Provider Internal Medicine | DX: R07.9 Chest pain, unspecified (principal) | CPT/HCPCS: 93010 ==

== ENCOUNTER 2023-09-04 10:51 | Outpatient (AMB) | payer OTHER, SELFPAY ==
--- NOTE | 2023-09-04 11:09 | MHC.OFFVIS ---
Vital Signs 09/04/23 11:21 Height 5 ft Weight 130 lb 2 oz BMI 25.4 BP 112/60 Blood Pressure Location Rt brachial Position Sitting Pulse 66 Pulse Source Pulse Oximeter Pulse Oximetry (%) 99 Oxygen Delivery Method Room Air Intake Visit Reasons: ED follow up worsening headaches Intake Note: Patient presents for f/u. More headaches and dizziness. Headaches are getting worse. Would like MRI results. Allergies Penicillins [PCN] Allergy (Severe, Verified 09/04/23 11:16) Anaphylaxis walnut Allergy (Severe, Verified 09/04/23 11:16) Anaphylaxis blueberry Allergy (Mild, Verified 09/04/23 11:16) Hives Medication List - Last Reconciled 09/04/23 by Bebe Armendariz, SHAHBAZ albuterol sulfate 2.5 mg (0.5 mL) inhalation Q20M albuterol sulfate 90 mcg/actuation (Ventolin HFA) 2 puffs inhalation Q6H PRN albuterol sulfate 0.63 mg (3 mL) inhalation QID PRN albuterol sulfate 90 mcg/actuation 1 inh inhalation QID PRN albuterol sulfate 90 mcg/actuation (ProAir HFA) 1 puff inhalation QID celecoxib (Celebrex) 200 mg PO BID 2 weeks etonogestrel (Nexplanon) subdermal ONCE naratriptan take 1/2 - 1 tab at onset of headache; if no relief may repeat 1 tab after at least 4 hrs; max = 2 tabs/24 hrs orally PRN; 30 days pyridoxine (vitamin B6) 100 mg PO DAILY 90 days riboflavin (vitamin B2) 400 mg PO DAILY 30 days HPI Comments Details: 38-yr-old female presents for f/u visit. Pt accompanied by family. Pt reports that she had been doing ok, using her blue light glasses, compression tx, vitamins. Was having 1-2 migraine days per week, one milder and one more severe. She never started Aimovig d/t was denied by insurance. Pt also notes her younger sister, age 36, had a stroke in which initial s/s was migraine headache- she does have residual left sided weakness. Pt is unsure of stroke etiology has been identified. Denies other family h/o stroke. [place] family h/o HTN, DM. Then about 2 weeks ago, she started having left sided back of head headache that moved up over the head a/w phonophobia, photophobia, blurry vision, allodynia, left eye twitch, N/V/osmophobia, palpitations. She also started having neck pain a/w LUE coldness, weakness- could not lift or arm or make a fist. Tramadol did not help this. Pressing in the left trochlear region or left occipital-cervical region- caused increased heart rate which subsided when the pressure was released. She went to the ER on 09/02/23, d/t the worsening headache and neck pain and fever. She was given pain meds. Was told headache was d/t cervical spondylosis. She was started on Celebrex 200mg bid- helping some. Was referred to PS&S PT. Baseline headache characteristics: Prodrome symptoms: feels edgey and chest tightness- almost like anxiety Aura: shooting stars Severe 8-9/10, at worst 10/10, Throbbing pain, Location varies- can be in back of head, in shoulders, in top of head, in forehead. A/w photophobia, phonophobia, osmophobia, allodynia, N/V, fatigue, brain fog, difficulty sleeping, left wrist tingling and coldness, watery eyes. [facility] Medical History Alopecia Surgical History No pertinent past surgical history Family History Mother Ovarian cancer Hypertension Hypercholesteremia Father Asthma Alcoholism Liver disease Sister Asthma Depression Anemia Osteoporosis Other Mental health disorder Social History Housing: House Alcohol intake: never Patient Tobacco Use Status: Never used Tobacco e-Cigarette/Vaping Use: Never Used Second Hand Smoke Exposure: No service: No Current occupational status: employed Current occupation: Dental Current occupational exposures/hazards: No Cognitive needs: No Hearing needs: No Vision needs: Yes Physical Exam Vital Signs: Last Vital Signs Pulse 66 09/04/23 11:21 BP 112/60 09/04/23 11:21 Pulse Ox 99 09/04/23 11:21 Oxygen Delivery Method Room Air 09/04/23 11:21 BMI result Body Mass Index 25.4 Const General: cooperative and no acute distress Orientation/consciousness: patient oriented x3 Resp Effort & Inspection: normal respiratory effort and able to speak in complete sentences Neuro Other: No trochlear or supraorbital notch tenderness on palpation. No pronator drift. MS 5/5, w/ exception of left hand garsp 5-/5. Bilateral TMJ- clicking, crepitus. Bilateral posterior cervical tightness. Cervical ROM: full Left Spurling: elicits radiating pain from left neck into left shoulder. Right Spurling: normal. General: patient oriented x3 Cranial nerves: Yes CN's II-XII intact bilaterally (w/ mild left facial asymmetry- per pt, baseline.) Cognition (Neuro): normal cognition Deep tendon reflexes (DTR's): Right triceps reflex intensity grade: 2+, Left triceps reflex intensity grade: 2+, Rt Biceps (C5, C6): 2+, Left biceps reflex intensity grade: 2+, Right brachioradialis reflex intensity grade: 2+, Left brachioradialis reflex intensity grade: 2+, Right patellar reflex intensity grade: 2+ and Left patellar reflex intensity grade: 3+ Psych Appearance: grossly normal Mental Status: mental status grossly normal Speech and movement: Normal speech and movement present Affect: normal affect Attitude: cooperative Assessment & Plan Assessment & Plan (1) Cervicalgia: Code(s): M54.2 - Cervicalgia Category: Medical (2) Left hand weakness: Code(s): R29.898 - Other symptoms and signs involving the musculoskeletal system Category: Medical (3) Hyperreflexia of lower extremity: Code(s): R29.2 - Abnormal reflex Category: Medical (4) Spondylosis, cervical: Code(s): M47.812 - Spondylosis without myelopathy or radiculopathy, cervical region Category: Medical (5) Left hand weakness: Code(s): R29.898 - Other symptoms and signs involving the musculoskeletal system Category: Medical (6) Hyperreflexia of lower extremity: Code(s): R29.2 - Abnormal reflex Category: Medical (7) Bilateral low back pain with sciatica: Code(s): M54.40 - Lumbago with sciatica, unspecified side Category: Medical (8) Migraine with aura: Code(s): G43.109 - Migraine with aura, not intractable, without status migrainosus Category: Medical Plan Reviewed previous brain MRI w/wo- normal. For cervicalgia w/ left radiculitis, and low back pain w/ fernanda sciatica s/s: Reviewed recent c-spine CT- C5-C6 level, there is relatively severe degenerative disc space narrowing with bulky anterior posterior marginal osteophytes which results in moderate central canal encroachment. Neural foramen are similarly narrowed due to hypertrophic changes about the uncovertebral joints. Pt advised to undergo: C-spine MRI w/o BUE and BLE EMG/NCS She may continue w/ PS&S PT- however advised to avoid strenuous cervical exercises or heavy lifting. 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 ? For overall headache management: Continue to optimize good self-care, including but not limited to maintaining a healthy diet, adequate fluid intake, adequate sleep, and engaging in regular physical activity. Track headaches. Continue blue light filtering glasses, green glasses, green light therapy.. ? For acute headache treatment: Trial Naraatriptan 2.5mg tab, 1/2 - 1 tab (1.25-2.5mg) at onset of headache, may repeat in 2 hours. Max of 2 tabs (5mg) per 24 hours. May adjunct with OTC Tylenol 650mg q 4 hours, Naproxen 440mg q 12 hrs prn, or Excedrin. Previous acute migraine medication trials: Imitrex- caused irritability. Ibuprofen- causes GI upset. Acute migraine medication contraindications: None at this time. ? For headache prevention medication: Discussed that preventative medications should be taken routinely as prescribed for best effect, it may take several weeks for full effect to take effect. Continue Riboflavin 400mg qam Continue Magnesium Powder- goal 400-500mg- try taking qhs. Pt again advsied to start Aimovig 140mg sc q month. Previous migraine prevention medication trials: Amitriptyline- caused irritability/nausea. Migraine prevention medication contraindications: BBs d/t symptomatic asthma dx, Topiramate d/t h/o kidney stones. ? F/u upon review of above and in clinic in 6 months or sooner prn. Orders: Orders NE electromyogram (EMG) Today M47.812 - Spondylosis without myelopathy or radiculopathy, cervical region, M54.40 - Lumbago with sciatica, unspecified side, R29.2 - Abnormal reflex, R29.898 - Other symptoms and signs involving the musculoskeletal system MR cervical spine wo con Today M47.812 - Spondylosis without myelopathy or radiculopathy, cervical region, M54.2 - Cervicalgia, R29.2 - Abnormal reflex, R29.898 - Other symptoms and signs involving the musculoskeletal system NE nerve conduction velocity Today M47.812 - Spondylosis without myelopathy or radiculopathy, cervical region, M54.40 - Lumbago with sciatica, unspecified side, R29.2 - Abnormal reflex, R29.898 - Other symptoms and signs involving the musculoskeletal system Medications: New erenumab-aooe (Aimovig Autoinjector) 140 mg subcut ONCE 1 mL 6RF 30 days Coding Level of Care Code Est Pt Level 4 (33828) Diagnoses Cervicalgia M54.2 Left hand weakness R29.898 Hyperreflexia of lower extremity R29.2 Spondylosis, cervical M47.812 Bilateral low back pain with sciatica M54.40 Migraine with aura G43.109
[2023-09-04 11:21] VITALS: BP 112/60; PULSE 66; O2SAT 99; BMI 25.4
== END 2023-09-04 12:16 | disposition home or self-care (01) ==
PROVIDERS: PCP Nurse Practitioner Family; Visit Provider Nurse Practitioner Family
DX: M54.2 Cervicalgia (principal); R29.898 Other symptoms and signs involving the musculoskeletal system; R29.2 Abnormal reflex; M47.812 Spondylosis without myelopathy or radiculopathy, cervical region; M54.40 Lumbago with sciatica, unspecified side; G43.109 Migraine with aura, not intractable, without status migrainosus
CPT/HCPCS: 99214

== ENCOUNTER → 2023-09-04 10:51 | Outpatient (BNVA) | payer OTHER, SELFPAY | PROVIDERS: PCP Nurse Practitioner Family; Visit Provider Nurse Practitioner Family | DX: M54.2 Cervicalgia (principal); G43.109 Migraine with aura, not intractable, without status migrainosus; M47.812 Spondylosis without myelopathy or radiculopathy, cervical region; M54.40 Lumbago with sciatica, unspecified side; R29.2 Abnormal reflex; R29.898 Other symptoms and signs involving the musculoskeletal system | CPT/HCPCS: 99212 ==

== ENCOUNTER 2023-09-05 13:54 | Outpatient (AMB) | payer OTHER, SELFPAY ==
--- NOTE | 2023-09-05 13:59 | A.OFFPC_ITS ---
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 Accompanied by: Self / Same As Patient Allergies Penicillins [PCN] Allergy (Severe, Verified 09/05/23 14:37) Anaphylaxis walnut Allergy (Severe, Verified 09/05/23 14:37) Anaphylaxis blueberry Allergy (Mild, Verified 09/05/23 14:37) Hives Medication List - Last Reconciled 09/05/23 by David Marin MD albuterol sulfate 2.5 mg (0.5 mL) inhalation Q20M albuterol sulfate 90 mcg/actuation (Ventolin HFA) 2 puffs inhalation Q6H PRN albuterol sulfate 0.63 mg (3 mL) inhalation QID PRN albuterol sulfate 90 mcg/actuation 1 inh inhalation QID PRN albuterol sulfate 90 mcg/actuation (ProAir HFA) 1 puff inhalation QID celecoxib (Celebrex) 200 mg PO BID 2 weeks erenumab-aooe (Aimovig Autoinjector) 140 mg subcut ONCE 30 days etonogestrel (Nexplanon) subdermal ONCE naratriptan take 1/2 - 1 tab at onset of headache; if no relief may repeat 1 tab after at least 4 hrs; max = 2 tabs/24 hrs orally PRN; 30 days pyridoxine (vitamin B6) 100 mg PO DAILY 90 days riboflavin (vitamin B2) 400 mg PO DAILY 30 days Tobacco use date assessed: 09/05/23 Dental Screening Dental Screen Date: 09/05/23 Did you have a dental visit in the last 12 months?: Yes Did you have a dental problem in the last 6 months where you did not have access to dental care?: No Was dental information given to patient?: Patient has dentist [place] [facility] chest pain/ migraines HPI Details 38-year-old female presents to the [facility] to discuss her medical conditions. Patient was recently in the emergency room for chest pain and neck pain. She was discharged on Celebrex. Patient has history of migraines. She was getting an injectable, this was stopped due to insurance reason. She met with her nurse practitioner at the neurology clinic who is planning to restart the medication. Patient gives history of bipolar illness. Currently on no medications. Very re luctant to see a psychiatrist or therapist. 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 She believes she has no time for herself. Not sleeping well at night. Nonsmoker. [facility] Medical History (Updated 09/05/23 @ 14:40 by David Marin MD) Anxiety and depression Cervicalgia Migraine with aura Alopecia Surgical History No pertinent past surgical history Family History Mother Ovarian cancer Hypertension Hypercholesteremia Father Asthma Alcoholism Liver disease Sister Asthma Depression Anemia Osteoporosis Other Mental health disorder Social History Housing: House Alcohol intake: never Patient Tobacco Use Status: Never used Tobacco e-Cigarette/Vaping Use: Never Used Second Hand Smoke Exposure: No service: No Current occupational status: employed Current occupation: Dental Current occupational exposures/hazards: No Cognitive needs: No Hearing needs: No Vision needs: Yes Questionnaire PHQ-9 Over the last 2 weeks, how often have you been bothered by any of the following problems? 1. Little interest or pleasure in doing things: several days 2. Feeling down, depressed, or hopeless: more than half the days 3. Trouble falling or staying asleep, or sleeping too much: more than half the days 4. Feeling tired or having little energy: nearly every day 5. Poor appetite or overeating: nearly every day 6. Feeling bad about yourself - or that you are a failure or have let yourself or your family down: several days 7. Trouble concentrating on things, such as reading the newspaper or watching television: not at all 8. Moving or speaking so slowly that other people could have noticed. Or the opposite - being so fidgety or restless that you have been moving around a lot more than usual: not at all 9. Thoughts that you would be better off or of hurting yourself in some way: not at all Total score: 12 Depression Screening Interpretation: Positive (Has been referred to the psychiatrist ) Depression Screening Follow-up: Existing condition Depression Screening Done: Yes Source: Developed by Drs. Alexei Serna, Sirisha Lara, Luis Jennings and colleagues, with an educational alf from [employer]. Thrive Questionnaire Date Thrive assessed: 09/05/23 I am a: Patient What is your living situation today?: I have a steady place to live Within the past 12 months, did the food you bought not last and you didn't have the money to get more?: Never true Within the past 12 months, did you worry whether your food would run out before you got money to buy more?: Never true Do you have trouble paying for medicines?: No Do you have trouble getting transportation to medical appointments?: No Do you have trouble paying your heating and electricity bill?: No Do you have trouble taking care of your child, family member or friend?: No Do you have trouble with day-to-day activities such as bathing, preparing meals, shopping, managing finances, etc.?: No Are you currently unemployed and looking for a job?: No Are you interested in more education?: No Currently or been in a relationship where the following occur: no concerns reported THRIVE Score: 0 AUDIT C Alcohol Use Questionnaire (AUDIT-C) 1. How often do you have a drink containing alcohol?: Never Total Score: 0 JYOTHI-7 AMB Questionnaire JYOTHI-7 Date JYOTHI - 7 assessed: 09/05/23 Feeling nervous, anxious, or on edge: 2 = More than half the days Not being able to stop or control worryin = More than half the days Worrying too much about different things: 2 = More than half the days Trouble relaxin = More than half the days Being so restless that it is hard to sit still: 1 = Several days Becoming easily annoyed or irritable: 3 = Nearly every day Feeling afraid as if something awful might happen: 0 = Not at all Total JYOTHI-7 score (0-4 normal; 5-9 mild; 10-14 moderate; 15-21 severe): 12 Source: Developed by Drs. Alexei Serna, Sirisha Lara, Luis Jennings and colleagues, with an educational alf from [employer]. Physical exam (Primary Care) Vital Signs: Last Vital Signs Pulse 71 09/05/23 14:01 BP 102/70 09/05/23 14:01 Pulse Ox 98 09/05/23 14:01 Oxygen Delivery Method Room Air 09/05/23 14:01 Care Plan Goal for BP management: Blood pressure is in range. BMI result Body Mass Index 25.1 Tobacco/Smoking Status: Tobacco use Status Tobacco use date assessed 09/05/23 09/05/23 14:07 Patient Tobacco Use Status Never used Tobacco 09/05/23 14:07 e-Cigarette/Vaping Use Never Used 09/05/23 14:07 PHQ-9: PHQ-9 Score PHQ-9: Total score 12 09/05/23 14:07 Depression Screening Interpretation: Positive (Has been referred to the psychiatrist ) Depression Screening Follow-up: Existing condition Thrive Assessment: Date of Thrive Assessment Date Thrive assessed 09/05/23 09/05/23 14:07 Currently or been in a relationship where the following occur: no concerns reported Const General: cooperative and healthy appearing Nutritional Appearance: well nourished Orientation/consciousness: patient oriented x3 Limitations: no limitations HENMT Head: Yes normal to inspection Eyes General: appearance normal, both eyes and all related structures Neck Neck: Yes normal visual inspection Chest Chest palpation & inspection: normal palpation of entire chest wall Resp Effort & Inspection: normal respiratory effort Neuro General: patient oriented x3 Assessment and Plan Assessment & Plan (1) Migraine with aura: Code(s): G43.109 - Migraine with aura, not intractable, without status migrainosus Plan: Follow-up with neurologist. (2) Anxiety and depression: Code(s): F41.9 - Anxiety disorder, unspecified; F32.A - Depression, unspecified Plan: I encouraged patient to see a psychiatrist and be under the care of therapist. Coding Level of Care Code Est Pt Level 4 (83301) Diagnoses Migraine with aura G43.109 Anxiety and depression F41.9; F32.A
[2023-09-05 14:01] VITALS: BP 102/70; PULSE 71; O2SAT 98; BMI 25.1
== END 2023-09-05 14:31 | disposition home or self-care (01) ==
PROVIDERS: PCP Nurse Practitioner Family; Visit Provider Internal Medicine
DX: G43.109 Migraine with aura, not intractable, without status migrainosus (principal); F31.9 Bipolar disorder, unspecified
CPT/HCPCS: 99214

== ENCOUNTER 2023-09-25 08:47 | Outpatient (REF) | payer OTHER, SELFPAY ==
--- NOTE | ~2023-09-25 | MR_ITS ---
EXAMINATION: MR CERVICAL SPINE WITHOUT CONTRAST CLINICAL INFORMATION: Cervicalgia. COMPARISON: CT cervical spine from 09/03/2023. TECHNIQUE: MRI of the cervical spine was obtained using routine sequences without contrast. FINDINGS: Reversal the normal cervical lordosis centered on C5-C6. Moderate degenerative retrolisthesis of C5 on C6. Advanced degenerative disc disease at C5-C6. Moderate degenerative disc disease from C2-C5 and at C6-C7. Associated mixed Modic type discogenic and plate changes including mild Modic type I discogenic edema from C4 to C6. Mild marrow edema within the posterior elements of C5-C7 consistent with degenerative stress reaction. No additional suspicious marrow edema. The vertebral body heights are largely maintained. No demonstrated spinal cord signal abnormalities. Limited evaluation of the soft tissues of the neck without demonstrated abnormalities. The flow voids of the major cervical vessels are maintained. Normal appearance of the cervicomedullary junction and visualized posterior fossa. SPINAL LEVELS: C2-C3: Mild disc-osteophyte complex. There is no uncovertebral joint arthropathy. There is moderate right and mild left facet joint arthropathy. There is no neural foraminal stenosis. There is no spinal canal stenosis. C3-C4: Moderate disc-osteophyte complex. There is moderate left worse than right uncovertebral joint arthropathy. There is moderate bilateral facet joint arthropathy. There is moderate bilateral neural foraminal stenosis. There is mild spinal canal stenosis. C4-C5: Moderate disc-osteophyte complex. There is moderate right and mild left uncovertebral joint arthropathy. There is mild bilateral facet joint arthropathy. There is mild right and no left neural foraminal stenosis. There is no spinal canal stenosis. C5-C6: Moderate disc-osteophyte complex eccentric to the left. There is moderate to severe left and moderate right uncovertebral joint arthropathy. There is moderate bilateral facet joint arthropathy. There is moderate to severe bilateral neural foraminal stenosis. There is mild to moderate spinal canal stenosis. C6-C7: Moderate disc-osteophyte complex eccentric to the left. There is moderate left and mild right uncovertebral joint arthropathy. There is mild bilateral facet joint arthropathy. There is mild left and no right neural foraminal stenosis. There is no spinal canal stenosis. C7-T1: Minimal disc-osteophyte complex. There is mild bilateral uncovertebral joint arthropathy. There is mild bilateral facet joint arthropathy. There is no neural foraminal stenosis. There is no spinal canal stenosis. MR/MR cervical spine wo con IMPRESSION: Moderate multilevel degenerative spondyloarthropathy of the cervical spine as described in detail above. Most notably, there is mild to moderate spinal canal stenosis at C5-C6. Mild spinal canal stenosis at C3-C4. Moderate to severe neural foraminal stenoses at C3-C4 and C5-C6.
== END 2023-09-25 08:48 | disposition home or self-care (01) ==
LOC: HO.MRI 08:47
PROVIDERS: PCP Internal Medicine; Visit Provider Nurse Practitioner Family
DX: M54.2 Cervicalgia (principal); R29.898 Other symptoms and signs involving the musculoskeletal system; R29.2 Abnormal reflex; M47.812 Spondylosis without myelopathy or radiculopathy, cervical region
CPT/HCPCS: 72141

== ENCOUNTER 2023-10-19 12:21 | Outpatient (REF) | payer OTHER, SELFPAY ==
--- NOTE | 2023-10-19 12:46 | EMG_ITS ---
Chief complaint: Chronic on and off neck pain. One month ago, sudden onset numbness in left arm and left leg. This has resolved by now. No weakness. Has some left-sided trapezius pain. Denies any symptoms on right side at all. Reason for referral: Evaluate for radiculopathy Referred by: Bebe Armendariz NP Procedure done: Focused on left upper and lower extremity NCS/EMG Precautions and/or limitations: None The limb temperature was monitored continuously and remained between 32-36 degrees C during the performance of the NCS. Nerve Conduction Studies Anti Sensory Summary Table ?Stim Site NR Onset (ms) Norm Onset (ms) Peak (ms) Norm Peak (ms) O-P Amp (?V) Norm O-P Amp Site1 Site2 Delta-0 (ms) Dist (cm) Onofre (m/s) Norm Onofre (m/s) Left Median Anti Sensory (2nd Digit) Wrist ? 1.8 2.7 <3.6 67.4 >10 Wrist 2nd Digit 1.8 14.0 78 Left Radial Anti Sensory (Thumb) Forearm ? 1.1 1.6 <3.1 56.3 Forearm Thumb 1.1 0.0 Left Sural Anti Sensory (Lat Mall) Calf ? 2.5 2.9 <4.0 18.7 >5.0 Calf Lat Mall 2.5 14.0 56 Right Sural Anti Sensory (Lat Mall) Calf ? 2.3 2.8 <4.0 15.6 >5.0 Calf Lat Mall 2.3 14.0 61 Left Ulnar Anti Sensory (5th Digit) Wrist ? 1.9 2.6 <3.7 67.9 >15.0 Wrist 5th Digit 1.9 14.0 74 Motor Summary Table ?Stim Site NR Onset (ms) Norm Onset (ms) O-P Amp (mV) Norm O-P Amp iAmp (mV) Amp (1st) (%) Site1 Site2 Delta-0 (ms) Dist (cm) Onofre (m/s) Norm Onofre (m/s) Left Median Motor (Abd Poll Brev) Wrist ? 2.1 <3.9 9.8 >4.5 11.8 100.0 Elbow Wrist 3.5 19.0 54 >45 Elbow ? 5.6 10.1 12.1 103.1 Left Peroneal Motor (Ext Dig Brev) Ankle ? 4.0 <4.0 7.7 >2.5 9.2 100.0 Ankle Ext Dig Brev 4.0 0.0 B Fib ? 9.5 7.1 8.7 92.2 B Fib Ankle 5.5 27.0 49 >40 Poplt ? 9.7 7.4 9.2 96.1 Poplt B Fib 0.2 4.0 200 >40 Left Tibial Motor (Abd Jacob Brev) Ankle ? 3.2 <5 8.3 >2.5 12.0 100.0 Ankle Abd Jacob Brev 3.2 0.0 Knee ? 9.9 10.4 13.9 125.3 Knee Ankle 6.7 32.0 48 >40 Left Ulnar Motor (Abd Dig Minimi) Wrist ? 2.3 <3.0 6.0 >5 7.4 100.0 B Elbow Wrist 2.3 14.5 63 >45 B Elbow ? 4.6 5.8 6.9 96.7 A Elbow B Elbow 1.3 10.0 77 >45 A Elbow ? 5.9 6.0 7.2 100.0 EMG ?Side Muscle Nerve Root Ins Act Fibs Psw Amp Dur Poly Recrt Int Pat Comment Left 1stDorInt Ulnar C8-T1 Nml Nml Nml Nml Nml 0 Nml Complete Left FlexCarRad Median C6-7 Nml Nml Nml Nml Nml 0 Nml Complete Left Biceps Musculocut C5-6 Nml Nml Nml Nml Nml 0 Nml Complete Left Triceps Radial C6-7-8 Nml Nml Nml Nml Nml 0 Nml Complete Left Deltoid Axillary C5-6 Nml Nml Nml Nml Nml 0 Nml Complete Left AbdHallucis MedPlantar S1-2 Nml Nml Nml Nml Nml 0 Nml Complete Left AntTibialis Dp Br Peron L4-5 Nml Nml Nml Nml Nml 0 Nml Complete Left PostTibialis Tibial L5, S1 Nml Nml Nml Nml Nml 0 Nml Complete Left MedGastroc Tibial S1-2 Nml Nml Nml Nml Nml 0 Nml Complete Left VastusMed Femoral L2-4 Nml Nml Nml Nml Nml 0 Nml Complete FINDINGS: All motor and sensory nerves tested showed normal latencies, amplitudes and conduction velocities. Concentric needle EMG was performed in selected muscles of the left upper extremity and left lower extremity. Study did not reveal signs of electric abnormalities as shown in the table above. IMPRESSION: 1. This is a normal study. 2. There is no electrodiagnostic evidence for median neuropathy, ulnar neuropathy, brachial plexopathy, cervical radiculopathy, peroneal neuropathy, tibial neuropathy, lumbosacral plexopathy, lumbar radiculopathy, or peripheral neuropathy. Thank you for your kind referral. Kemi Mercado MD, CK Board Certified, [place] [employer] and [employer] (ABPMR) Board Certified, [place] [employer] Electro[employer]ostic [employer] (ABEM) CODIN [id number] x 2 MTDD
== END 2023-10-19 12:22 | disposition home or self-care (01) ==
LOC: HO.NEURO 12:21
PROVIDERS: PCP Internal Medicine; Visit Provider Nurse Practitioner Family
DX: R29.2 Abnormal reflex (principal); M47.812 Spondylosis without myelopathy or radiculopathy, cervical region; R29.898 Other symptoms and signs involving the musculoskeletal system; M54.40 Lumbago with sciatica, unspecified side
CPT/HCPCS: 95886; 95911

== ENCOUNTER → 2023-10-19 12:46 | Outpatient (BNV) | payer OTHER, SELFPAY | PROVIDERS: PCP Internal Medicine; Visit Provider Physical Medicine & Rehabilitation | DX: M54.2 Cervicalgia (principal); M79.602 Pain in left arm; M79.605 Pain in left leg | CPT/HCPCS: 95886; 95911 ==

== ENCOUNTER 2024-05-08 07:50 | Emergency (ER) | payer OTHER, SELFPAY ==
--- NOTE | ~2024-05-08 | US_ITS ---
EXAMINATION: US PELVIS CLINICAL INFORMATION: Pelvic pain COMPARISON: None available. TECHNIQUE: Ultrasound of the pelvis is performed using both transabdominal and transvaginal transducers along with Doppler. Transvaginal imaging is performed due to inadequate visualization transabdominally. FINDINGS: Uterus: The uterus is anteverted and, anteflexed measures 6.57 x 3.6 x 4.6 cm. The double wall endometrial thickness is 6 mm. There is a hypoechoic lesion along the upper body of uterus measuring 1.2 x 0.95 x 1.2 cm. No additional lesions seen. The uterus is homogeneous in echotexture. There is anechoic nabothian cysts Adnexa: Both ovaries are visualized. There is normal color flow to the adnexa. There is no ovarian torsion. There is no pelvic ascites or fluid collection. Right ovary measures 3.8 x 2.5 x 3.1 cm. Volume 15.4 mL. There is anechoic simple cyst measuring 1.6 x 1.3 x 2.1 cm. Left ovary measures 2.5 x 1.9 x 2.3 cm. Volume 5.7 mL. There is no free fluid in the cul-de-sac. US/US pelvic and transvaginal IMPRESSION: Small uterine fibroid. Small nabothian cysts in the cervix. Right ovarian cyst. Electronically signed by: Mike Marcial MD 05/08/2024 11:41 AM EST
--- NOTE | ~2024-05-08 | CT_ITS ---
EXAMINATION: CT ABDOMEN AND PELVIS WITHOUT CONTRAST CLINICAL INFORMATION: Low back pain COMPARISON: CT abdomen pelvis 06/24/2022 TECHNIQUE: Multidetector volumetric imaging was performed from the superior aspect of the liver through the pubic symphysis. Sagittal and coronal reformatted images were obtained on the technologist's workstation. This CT examination was performed using dose optimization techniques as appropriate, variously including the following: *Automated exposure control *Adjustment of mA and/or kV according to patient size (this includes techniques or standardized protocols for targeted exams where dose is matched to indication/reason for exam; i.e. extremities or head) *Use of iterative reconstruction technique DLP: 334 mGy-cm FINDINGS: LUNG BASES: The visualized lung bases are unremarkable. LIVER, GALLBLADDER, AND BILIARY TREE: The liver is normal in size, shape, and attenuation. No focal hepatic lesion or biliary ductal dilatation is present. The gallbladder is unremarkable with no evidence of radiopaque gallstones, gallbladder wall thickening, or obvious pericholecystic inflammatory changes. PANCREAS: Unremarkable. SPLEEN: Unremarkable. ADRENAL GLANDS: Unremarkable. KIDNEYS AND URETERS: The kidneys are normal in size, shape, and attenuation. No hydronephrosis, hydroureter, or calculi seen. No perinephric stranding. BLADDER: Unremarkable. GASTROINTESTINAL TRACT: There is scattered stool and gas seen throughout the colon without distention. The small bowel loops are normal caliber. Appendix is normal caliber. No inflammatory process, free air or free fluid seen. ABDOMINAL WALL: No significant hernia is appreciated. LYMPH NODES: Normal. VASCULAR: Unremarkable. PELVIC VISCERA: The uterus is anteverted and appears unremarkable. There is no free air or free fluid. No abnormal pelvic lymph nodes. OSSEOUS STRUCTURES: There is no aggressive lytic or sclerotic process seen. There are minimal disc bulges L4-5 and L5-S1 disc level. CT/CT abdomen pelvis wo IV con IMPRESSION: Moderate constipation. No acute intra-abdominal process seen. Fleischner guidelines were followed. Electronically signed by: Mike Marcial MD 05/08/2024 09:54 AM [facility] [place]
--- NOTE | 2024-05-08 08:05 | ED_ITS ---
HPI - Abdominal Pain General Chief Complaint: General Medical Stated Complaint: Lower Abd & Back Pain Time Seen by Provider: 05/08/24 08:03 Source: patient and RN notes reviewed Mode of arrival: ambulatory Limitations: no limitations History of Present Illness ED Provider: Areli Parmar PA-C HPI narrative: This is a 39-year-old female, with a history of asthma, migraines, and anxiety, who presents emergency department with complaints of back pain and lower abdominal pain x1 month. Patient states that she has had no injury, trauma, heavy lifting or falls. Pt did have nausea and vomiting which has since resolved. She has had kidney stones in the past which she has passed on her own and is concerned this is what is the source of her symptoms. She denies any chest pain, SOB, abdominal pain, vomiting, urinary symptoms. No saddle anethesia. She has tried OTC pain modalities without any relief. MD elicited complaint: abdominal pain Pertinent past history: none Location: none Exacerbating factors: nothing Relieving factors: nothing Related Data Home Medications ?Medication ?Instructions ?Recorded ?Confirmed etonogestrel 68 mg subdermal subdermal ONCE 08/10/21 09/04/23 implant (Nexplanon) Previous Rx's ?Medication ?Instructions ?Recorded albuterol sulfate 2.5 mg/0.5 mL 2.5 mg (0.5 mL) inhalation Q20M 09/08/21 solution for nebulization #30 ea albuterol sulfate 90 mcg/actuation 2 puff inhalation Q6H PRN 09/08/21 aerosol inhaler (Ventolin HFA) shortness of breath or wheezing #8.5 grams albuterol sulfate 0.63 mg/3 mL 0.63 mg (3 mL) inhalation QID PRN 02/28/22 solution for nebulization shortness of breath or wheezing #75 mL albuterol sulfate 90 mcg/actuation 1 inh inhalation QID PRN shortness 02/28/22 aerosol inhaler of breath or wheezing #8.5 grams naratriptan 2.5 mg tablet See Rx Instructions PO .COMPLEX 09/15/22 PRN migraine headache 30 days #12 tabs riboflavin (vitamin B2) 400 mg 400 mg PO DAILY 30 days #30 tabs 09/15/22 tablet pyridoxine (vitamin B6) 100 mg 100 mg PO DAILY 90 days #90 tabs 04/19/23 tablet albuterol sulfate 90 mcg/actuation 1 puff inhalation QID #8.5 grams 09/02/23 aerosol inhaler (ProAir HFA) celecoxib 200 mg capsule (Celebrex) 200 mg PO BID 2 weeks #28 caps 09/02/23 erenumab-aooe 140 mg/mL 140 mg subcut ONCE 30 days #1 mL 09/04/23 subcutaneous auto-injector (Aimovig Autoinjector) topiramate 25 mg tablet 25 - 50 mg (1 - 2 x 25 mg) PO 09/21/23 BEDTIME 30 days #60 tabs acetaminophen 500 mg tablet 500 mg PO Q6H PRN pain #30 tabs 05/08/24 (Tylenol Extra Strength) lidocaine 5 % topical patch 1 patch topical DAILY #30 ea 05/08/24 morphine 15 mg immediate release 15 mg PO Q8H PRN severe pain 05/08/24 tablet (scale score 7-10) #5 tabs Allergies Allergy/AdvReac Type Severity Reaction Status Date / Time Penicillins [PCN] Allergy Severe Anaphylaxis Verified 05/08/24 08:26 walnut Allergy Severe Anaphylaxis Verified 05/08/24 08:26 blueberry Allergy Mild Hives Verified 05/08/24 08:26 Review of Systems Review of Systems Yes all other systems are reviewed and are negative Constitutional: Reports as per [facility] Past Medical History Attestation statement: The following information was validated with the patient. Medical History Anxiety and depression Cervicalgia Migraine with aura Alopecia Surgical History No pertinent past surgical history Family History Family History Mother Ovarian cancer Hypertension Hypercholesteremia Father Asthma Alcoholism Liver disease Sister Asthma Depression Anemia Osteoporosis Other Mental health disorder Social History Social History Housing: House Alcohol intake: never Patient Tobacco Use Status: Never used Tobacco e-Cigarette/Vaping Use: Never Used Second Hand Smoke Exposure: No service: No Current occupational status: employed Current occupation: Dental Current occupational exposures/hazards: No Cognitive needs: No Hearing needs: No Vision needs: Yes Physical Exam ED Vital Signs: Vital Signs - 24 hr 05/08/24 08:25 05/08/24 10:35 05/08/24 10:36 Temperature 98.0 F 98.0 F Pulse Rate 74 60 Respiratory Rate 18 18 18 Blood Pressure 117/76 107/67 Pulse Oximetry 98 98 Oxygen Delivery Method Room Air Room Air 05/08/24 12:57 Temperature 98.0 F Pulse Rate 55 Respiratory Rate 18 Blood Pressure 110/76 Pulse Oximetry 97 Oxygen Delivery Method Room Air BMI result Body Mass Index 24.4 Const General: cooperative, comfortable and no acute distress Orientation/consciousness: patient oriented x3 Limitations: no limitations [facility] Head: Yes normal to inspection, Yes normocephalic and Yes atraumatic Ears: hearing grossly normal bilaterally General nose exam: Normal external nose present Face and sinus: Yes normal facial exam Mouth: Normal oral and palatal mucosa present, oropharynx normal and moist mucous membranes Throat: Yes posterior oropharynx normal Eyes General: appearance normal, both eyes and all related structures Eyelids: Yes eyelids normal Conjunctivae: conjunctivae normal Sclerae: sclerae normal Pupils: Equal, round and reactive pupils present EOM: EOMs intact bilaterally Neck Neck: Yes normal visual inspection, Yes full ROM and Yes no lymphadenopathy Lymphatic: no lymphadenopathy noted Chest Chest palpation & inspection: normal inspection of the chest Resp Effort & Inspection: normal respiratory effort and able to speak in complete sentences Auscultation: clear to auscultation bilaterally, no crackles, no rales, no rhonchi and no wheezes Cardio Rate: regular rate Rhythm: regular rhythm Heart sounds: S1 normal heart sound present and S2 normal heart sound present GI Other: Abdomen is soft, nontender, nondistended, no suprapubic tenderness on examination, no rebound or guarding. Inspection: Yes normal to inspection General: Yes no CVA tenderness Back/Spine/Pelvis Other: Tenderness palpation along the lumbar paraspinous muscles, pain worsening with positional changes. Strength 5/5 in LE bilaterally. Back: no CVA tenderness Skin General skin exam: no rashes or lesions noted Trauma: no lacerations or abrasions Wounds: no wounds Neuro General: patient oriented x3 and moves all extremities Cranial nerves: Yes Equal, round and reactive pupils present Extrem General: Yes normal to inspection Right upper extremity: normal to inspection Left upper extremity: normal to inspection Right lower extremity: normal to inspection Left lower extremity: normal to inspection Course Reevaluation(s) Reevaluation #1: Patient re-evaluated, stating that she is still having continued pain after receiving Toradol. Will medicate with Lidoderm patch and morphine. Will be obtained due to pelvic pain. Time: 10:30 Reevaluation #2: Pt feeling better after medications. US revealing uterine fibroid, nabothian cyst and right ovarrian cyst. Discussed with pt, she will f/u with her OBGYN. CT revealing no evidence of kidney stones or hydronephrosis. Discussed that she does have disc bulges at L4-l5, l5-s1. She will f.u with PCP. Given return precautions. No red flag back symptoms. Stable for d.c Medical Decision Making Medical Decision Making [facility] Narrative: This is a 39-year-old female who presents emergency department with complaints of low back pain, and abdominal pain for the last month. On arrival, VSS. Pt well appearing in no acute distress. She has ttp overlying lumbar musculature without any discrete CVA tenderness. Given hx of kidney stones, will obtain CT to ensure no evidence of obstructive process. No urinary symptoms. Plan: Labs, UA, CT abd/pelvis Differential Diagnosis Differential Diagnoses: The differential diagnosis associated with the presentation includes nephrolithiasis, cystitis, pylonephritis, muscle spasm Admission/Observation Consideration of admission/observation: Escalation of care including admission/observation considered Lab Data [facility] Lab Attestation statement: I reviewed the patient's lab results. No leukocytosis, stable H&H, no evidence of OLIVIER, no electrolyte derangements, UA without evidence of UTI. 05/08/24 08:34 05/08/24 08:34 Labs: Lab Results 05/08/24 05/08/24 Range/Units 08:34 10:12 WBC 5.9 (4.8-10.8) X10*3/uL RBC 4.15 L (4.20-5.50) X10*6/uL Hgb 12.2 (12.0-16.0) g/dl Hct 36.3 L (37.0-47.0) % MCV 87.5 (80.0-98.0) fL MCH 29.4 (27.0-33.0) pg MCHC 33.6 (31.0-35.0) g/dl RDW 12.9 (11.0-16.0) % Plt Count 203 (160-400) X10*3/uL MPV 9.7 (9.4-12.3) fL Immature Gran % (Auto) 0.5 H (0.0-0.4) % Neut % (Auto) 46.5 (45-73) % Lymph % (Auto) 36.3 (20-40) % [place] % (Auto) 6.1 (2-11) % Eos % (Auto) 9.9 H (0-4) % Baso % (Auto) 0.7 (0-2) % Lymph # (Auto) 2.1 (1.2-4.9) X10*3/uL [place] # (Auto) 0.4 (0.1-1.2) X10*3/uL Eos # (Auto) 0.6 H (0.0-0.4) X10*3/uL Baso # (Auto) 0.0 (0.0-0.2) X10*3/uL Abs Immat Gran (auto) 0.03 (0.00-0.03) X10*3/uL Absolute Neuts (auto) 2.7 (2.0-8.3) x10*3/uL Absolute Nucleated RBC 0.000 (0.0-0.012) X10*3/uL Nucleated RBC % (auto) 0.0 (0.0-0.2) /100WBC Sodium 140 (135-145) mmol/L Potassium 4.1 (3.3-5.1) mmol/L Chloride 109 H (96-108) mmol/L Carbon Dioxide 25 (22-29) mmol/L Anion Gap 10 L (12-20) BUN 15 (9-16) mg/dL Creatinine 0.73 (0.5-1.4) mg/dL Estim Creat Clear Calc 80.0 Estimated GFR > 60 Random Glucose 115 (60-115) mg/dL Calcium 8.4 D (8.4-10.2) mg/dL Magnesium 1.9 (1.6-2.6) mg/dL Total Bilirubin 0.3 (0.0-1.0) mg/dL Direct Bilirubin 0.1 (0.0-0.5) mg/dL AST 19 (5-31) U/L ALT 28 (0-31) U/L Alkaline Phosphatase 66 (39-117) U/L Total Protein 6.4 L (6.5-8.0) g/dL Albumin 3.6 (3.5-5.0) g/dL Lipase 39 (8-78) U/L Beta HCG, Quant < 2 mIU/mL Urine Color Yellow Urine Appearance Clear Urine pH 5.5 (5.0-9.0) Ur Specific [place] 1.010 (1.005-1.025) Urine Protein Negative (Neg-Trace) mg/dL Urine Glucose (UA) Negative (Negative) mg/dL Urine Ketones Negative (Negative) mg/dL Urine Blood Trace H (Negative) Urine Nitrite Negative (Negative) Ur Leukocyte Esterase Negative (Negative) Urine RBC 0-2 (0-2) /HPF Urine WBC 0-5 (0-5) /HPF Ur Squamous Epith Cells 3-5 (0-2) /HPF Urine Bacteria 2+ (None Seen) Hyaline Casts 0-2 (0-2) /LPF Radiology Impression Discussion of test interpretation with radiology: I have reviewed the radiologist's reading. Radiologist Impression: RDER #: [id number] US/US pelvic and transvaginal IMPRESSION: Small uterine fibroid. Small nabothian cysts in the cervix. Right ovarian cyst. Electronically signed by: Mike Marcial MD 05/08/2024 11:41 AM EST RP Dictated By: Mike Marcial MD CT/CT abdomen pelvis wo IV con IMPRESSION: Moderate constipation. No acute intra-abdominal process seen. Fleischner guidelines were followed. Electronically signed by: Mike Marcial MD 05/08/2024 09:54 AM EST RP Dictated By: Mike Marcial MD Medications Administered Discontinued Medications Generic Name Dose Route Start Last Admin Trade Name Freq PRN Reason Stop Dose Admin Ketorolac Tromethamine 30 mg 05/08/24 09:12 05/08/24 09:27 Ketorolac Tromethamine 30 Mg/Ml Vial IVPUSH 05/08/24 09:13 30 mg ONCE ONE Administration Lidocaine 1 patch 05/08/24 10:28 05/08/24 10:36 Lidocaine 4 % Patch Adh..Patch TRANSDERMA 05/08/24 10:29 1 patch ONCE ONE Administration Protocol Morphine Sulfate 4 mg 05/08/24 10:28 05/08/24 10:35 Morphine Sulfate 4 Mg/Ml Cartridge IVPUSH 05/08/24 10:29 4 mg ONCE ONE Administration Protocol Discharge Plan Discharge Clinical Impression: Back pain, L4-L5 disc bulge, Bulging lumbar disc, Abnormal ultrasound Patient Disposition: Home, Self-Care Instructions: Back Pain (ED) Additional Instructions: You were seen in the emergency department due to ongoing back pain. Your blood work was reassuring. Your urine does not appear to be infected. Your CT scan does not show any kidney stones. You do have moderate constipation. You do have minimal disc bulges within the L4-L5, L5-S1 disc level. You are ultrasound shows a small uterine fibroid, a right ovarian cyst, and a small nabothian cysts in the cervix. Please follow-up with your OBGYN. Take Tylenol as needed for pain. Lidocaine patches can also help for your symptoms. Morphine as a strong narcotic pain medication, please take for severe pain only. Please be advised that this can cause worsening constipation. If any new or worsening symptoms occur including but not limited to worsening back pain, urinary or bowel retention or incontinence, loss of sensation in your groin, please seek emergent care. Prescriptions: New morphine 15 mg tablet 15 mg PO Q8H PRN (Reason: severe pain (scale score 7-10)) Qty: 5 0RF Rx Instructions: Partial Fill upon patient request. acetaminophen [Tylenol Extra Strength] 500 mg tablet 500 mg PO Q6H PRN (Reason: pain) Qty: 30 0RF lidocaine 5 % adhesive patch,medicated 1 patch topical DAILY Qty: 30 0RF Rx Instructions: leave on most painful area for up to 12 hrs No Action pyridoxine (vitamin B6) 100 mg tablet 100 mg PO DAILY 90 Days Qty: 90 2RF topiramate 25 mg tablet 25 - 50 mg PO BEDTIME 30 Days Qty: 60 3RF albuterol sulfate [Ventolin HFA] 90 mcg/actuation HFA aerosol inhaler 2 puff inhalation Q6H PRN (Reason: shortness of breath or wheezing) Qty: 8.5 0RF Rx Instructions: May substitute for medication approved by insurance albuterol sulfate 2.5 mg/0.5 mL solution for nebulization 2.5 mg inhalation Q20M Qty: 30 0RF Rx Instructions: for up to 3 doses, may substitute for medication accepted by insurance albuterol sulfate 0.63 mg/3 mL solution for nebulization 0.63 mg inhalation QID PRN (Reason: shortness of breath or wheezing) Qty: 75 0RF albuterol sulfate 90 mcg/actuation HFA aerosol inhaler 1 inh inhalation QID PRN (Reason: shortness of breath or wheezing) Qty: 8.5 0RF celecoxib [Celebrex] 200 mg capsule 200 mg PO BID 14 Days Qty: 28 0RF albuterol sulfate [ProAir HFA] 90 mcg/actuation HFA aerosol inhaler 1 puff inhalation QID Qty: 8.5 0RF Nexplanon 68 mg implant subdermal ONCE riboflavin (vitamin B2) 400 mg tablet 400 mg PO DAILY 30 Days Qty: 30 6RF naratriptan 2.5 mg tablet See Rx Instructions PO .COMPLEX PRN (Reason: migraine headache) 30 Days Qty: 12 6RF Rx Instructions: take 1/2 - 1 tab at onset of headache; if no relief may repeat 1 tab after at least 4 hrs; max = 2 tabs/24 hrs orally PRN; Aimovig Autoinjector 140 mg/mL auto-injector 140 mg subcut ONCE 30 Days Qty: 1 6RF Referrals: [facility] [Provider Group] Fred Morejon MD [Physician] - Stand Alone Forms: Work/School Release Interventions: ED Discharge Assessment Last Done: 05/08/24 12:57 Discharge Date/Time: 05/08/24 13:05 Print Language: [place]
[2024-05-08 08:25] VITALS: BP 117/76; PULSE 74; RESP 18; TEMP 36.7; O2SAT 98; BMI 24.4
[2024-05-08 08:37] LABS: MANUAL DIFF FLAG NO
[2024-05-08 08:40] LABS: Basophils Percent Auto 0.7 % (0-2); Eosinophils Absolute Auto 0.6 X10*3/uL (0.0-0.4); Eosinophils Percent Auto 9.9 % (0-4); Hematocrit 36.3 % (37.0-47.0); Hemoglobin 12.2 g/dl (12.0-16.0); Imm Gran Abs Auto 0.03 X10*3/uL (0.00-0.03); Imm Gran Pct Auto 0.5 % (0.0-0.4); Lymphocytes Absolute Auto 2.1 X10*3/uL (1.2-4.9); Lymphocytes Percent Auto 36.3 % (20-40); Mean Corpuscular HGB Conc 33.6 g/dl (31.0-35.0); Mean Corpuscular Hemoglobin 29.4 pg (27.0-33.0); Mean Corpuscular Volume 87.5 fL (80.0-98.0); Mean Platelet Volume 9.7 fL (9.4-12.3); Monocytes Absolute Auto 0.4 X10*3/uL (0.1-1.2); Monocytes Percent Auto 6.1 % (2-11); Neutrophils Absolute Auto 2.7 x10*3/uL (2.0-8.3); Neutrophils Percent Auto 46.5 % (45-73); Platelet Count 203 X10*3/uL (160-400); Red Blood Count 4.15 X10*6/uL (4.20-5.50); Red Cell Distribution Width 12.9 % (11.0-16.0); White Blood Count 5.9 X10*3/uL (4.8-10.8)
[2024-05-08 08:56] LABS: Alanine Aminotransferase 28 U/L (0-31); Albumin Level 3.6 g/dL (3.5-5.0); Anion Gap 10 (12-20); Aspartate Amino Transferase 19 U/L (5-31); Bilirubin Direct 0.1 mg/dL (0.0-0.5); Bilirubin Total 0.3 mg/dL (0.0-1.0); Blood Urea Nitrogen 15 mg/dL (9-16); Calcium 8.4 mg/dL (8.4-10.2); Carbon Dioxide 25 mmol/L (22-29); Chloride 109 mmol/L (96-108); Estimated Glomerular Filt Rate > 60; Glucose Random 115 mg/dL (60-115); Lipase 39 U/L (8-78); Magnesium 1.9 mg/dL (1.6-2.6); Potassium 4.1 mmol/L (3.3-5.1); Sodium 140 mmol/L (135-145); Total Protein 6.4 g/dL (6.5-8.0)
[2024-05-08 09:06] LABS: HCG Quantitative < 2 mIU/mL
[2024-05-08 09:14] LABS: Alkaline Phosphatase 66 U/L (39-117)
[2024-05-08] MEDS: Ketorolac Tromethamine 30 MG/ML VIAL IVPUSH (09:27)
[2024-05-08 10:21] LABS: Appearance Urine Clear; Color Urine Yellow; Glucose Urine UA Negative (Negative); Leukocyte Esterase Urine Negative (Negative); Nitrite Urine Negative (Negative); PH 5.5 (5.0-9.0); UMIC TRIGGER UACC YES; Urine Blood Trace (Negative); Urine Ketones Negative (Negative); Urine Protein Negative (Neg-Trace)
[2024-05-08 10:23] LABS: Bacteria Urine 2+ (None Seen); Hyaline Casts Urine 0-2 /LPF (0-2); RBC Urine 0-2 /HPF (0-2); WBC Urine 0-5 /HPF (0-5)
[2024-05-08 10:35] VITALS: RESP 18
[2024-05-08] MEDS: Morphine Sulfate 4 MG/ML CARTRIDGE IVPUSH (10:35)
[2024-05-08 10:36] VITALS: BP 107/67; PULSE 60; RESP 18; TEMP 36.7; O2SAT 98
[2024-05-08] MEDS: Lidocaine 4 % Patch ADH..PATCH 1 PATCH TRANSDERMA (10:36)
[2024-05-08 12:57] VITALS: BP 110/76; PULSE 55; RESP 18; TEMP 36.7; O2SAT 97
== END 2024-05-08 13:05 | disposition home or self-care (01) ==
PROVIDERS: Physician Assistant Medical; Emergency Provider Emergency Medicine; PCP Internal Medicine
DX: M54.50 Low back pain, unspecified (principal); M51.369 Other intervertebral disc degeneration, lumbar region without mention of lumbar back pain or lower extremity pain; N88.8 Other specified noninflammatory disorders of cervix uteri; R93.5 Abnormal findings on diagnostic imaging of other abdominal regions, including retroperitoneum; R10.2 Pelvic and perineal pain; Z79.899 Other long term (current) drug therapy; Z87.442 Personal history of urinary calculi
CPT/HCPCS: 36415; 74176; 76830; 76856; 80048; 80076; 81001; 83690; 83735; 84702; 85025; 96374; 96375; 99284; J1885; J2270

== ENCOUNTER → 2024-05-08 08:26 | Outpatient (BNV) | payer OTHER, SELFPAY | PROVIDERS: Emergency Provider Emergency Medicine; PCP Internal Medicine; Visit Provider Radiology Diagnostic Radiology | DX: M54.50 Low back pain, unspecified (principal); N83.201 Unspecified ovarian cyst, right side; N88.8 Other specified noninflammatory disorders of cervix uteri | CPT/HCPCS: 74176; 76830; 76856 ==

== ENCOUNTER 2024-05-15 09:35 | Outpatient (AMB) | payer OTHER, SELFPAY ==
[2024-05-15 09:42] VITALS: BP 100/70; PULSE 71; O2SAT 97; BMI 24.8
--- NOTE | 2024-05-15 09:42 | MHC.PC.OV ---
Vital Signs 05/15/24 09:42 Height 5 ft Weight 127 lb 4 oz BMI 24.8 BP 100/70 Blood Pressure Location Lt brachial Position Sitting Pulse 71 Pulse Source Pulse Oximeter Pulse Oximetry (%) 97 Oxygen Delivery Method Room Air Intake Visit Reasons: [facility] 1/ back pain Intake Note: Patient is here to follow-up after a visit the emergency department at [facility] on 05/08/24 [place] Department Supervisor Required: No Shuttle Inspector: Not Required per policy Accompanied by: Self / Same As Patient Allergies Penicillins [PCN] Allergy (Severe, Verified 05/15/24 12:47) Anaphylaxis walnut Allergy (Severe, Verified 05/15/24 12:47) Anaphylaxis blueberry Allergy (Mild, Verified 05/15/24 12:47) Hives Medication List - Last Reconciled 05/15/24 by Sisi Solis PA-C acetaminophen (Tylenol Extra Strength) 500 mg PO Q6H PRN albuterol sulfate 2.5 mg (0.5 mL) inhalation Q20M albuterol sulfate 90 mcg/actuation (Ventolin HFA) 2 puffs inhalation Q6H PRN albuterol sulfate 90 mcg/actuation 1 inh inhalation QID PRN albuterol sulfate 0.63 mg (3 mL) inhalation QID PRN albuterol sulfate 90 mcg/actuation 1 puff inhalation QID celecoxib (Celebrex) 200 mg PO BID 2 weeks citalopram 10 mg PO DAILY cyclobenzaprine 10 mg PO Q8H erenumab-aooe (Aimovig Autoinjector) 140 mg subcut ONCE 30 days etonogestrel (Nexplanon) subdermal ONCE lidocaine 5% 1 patch topical DAILY morphine 15 mg PO Q8H PRN naratriptan take 1/2 - 1 tab at onset of headache; if no relief may repeat 1 tab after at least 4 hrs; max = 2 tabs/24 hrs orally PRN; 30 days ondansetron 4 mg PO Q8H PRN prednisone 40 mg (2 x 20 mg) PO DAILY 5 days pyridoxine (vitamin B6) 100 mg PO DAILY 90 days riboflavin (vitamin B2) 400 mg PO DAILY 30 days topiramate 25 - 50 mg (1 - 2 x 25 mg) PO BEDTIME 30 days Tobacco use date assessed: 05/15/24 Dental Screening Dental Screen Date: 01/09/25 Did you have a dental visit in the last 12 months?: Yes Did you have a dental problem in the last 6 months where you did not have access to dental care?: No Was dental information given to patient?: Patient has dentist [facility] Medical History Anxiety and depression Cervicalgia Migraine with aura Alopecia Surgical History No pertinent past surgical history Family History Mother Ovarian cancer Hypertension Hypercholesteremia Father Asthma Alcoholism Liver disease Sister Asthma Depression Anemia Osteoporosis Other Mental health disorder Social History Housing: House Alcohol intake: never Patient Tobacco Use Status: Never used Tobacco Tobacco use type: Cigarette e-Cigarette/Vaping Use: Never Used Second Hand Smoke Exposure: No service: No Current occupational status: employed Current occupation: Dental Current occupational exposures/hazards: No Cognitive needs: No Hearing needs: No Vision needs: Yes Questionnaire PHQ-9 Over the last 2 weeks, how often have you been bothered by any of the following problems? 1. Little interest or pleasure in doing things: several days 2. Feeling down, depressed, or hopeless: more than half the days 3. Trouble falling or staying asleep, or sleeping too much: more than half the days 4. Feeling tired or having little energy: nearly every day 5. Poor appetite or overeating: nearly every day 6. Feeling bad about yourself - or that you are a failure or have let yourself or your family down: several days 7. Trouble concentrating on things, such as reading the newspaper or watching television: not at all 8. Moving or speaking so slowly that other people could have noticed. Or the opposite - being so fidgety or restless that you have been moving around a lot more than usual: not at all 9. Thoughts that you would be better off or of hurting yourself in some way: not at all Total score: 12 Depression Screening Interpretation: Positive (Has been referred to the psychiatrist, patient will also be started on citalopram 10 mg daily with follow-up in 4 weeks) Depression Screening Follow-up: Existing condition, New Medication prescribed and Follow-up Visit Requested Depression Screening Done: Yes 18948 - PHQ-9 Billing: Yes Source: Developed by Drs. Alexei Serna, Sirisha Lara, Lusi Jennings and colleagues, with an educational alf from [employer] Thrive Questionnaire Date Thrive assessed: 05/15/24 I am a: Patient What is your living situation today?: I have a steady place to live Within the past 12 months, did the food you bought not last and you didn't have the money to get more?: Never true Within the past 12 months, did you worry whether your food would run out before you got money to buy more?: Never true Do you have trouble paying for medicines?: No Do you have trouble getting transportation to medical appointments?: No Do you have trouble paying your heating and electricity bill?: No Do you have trouble taking care of your child, family member or friend?: No Do you have trouble with day-to-day activities such as bathing, preparing meals, shopping, managing finances, etc.?: No Are you currently unemployed and looking for a job?: No Are you interested in more education?: No Currently or been in a relationship where the following occur: No concerns reported THRIVE Score: 0 AUDIT C Alcohol Use Questionnaire (AUDIT-C) 1. How often do you have a drink containing alcohol?: Never Total Score: 0 Score Reviewed/Action Taken: Yes (Score reviewed) JYOTHI-7 AMB Questionnaire JYOTHI-7 Date JYOTHI - 7 assessed: 05/15/24 Feeling nervous, anxious, or on edge: 2 = More than half the days Not being able to stop or control worryin = More than half the days Worrying too much about different things: 2 = More than half the days Trouble relaxin = More than half the days Being so restless that it is hard to sit still: 1 = Several days Becoming easily annoyed or irritable: 3 = Nearly every day Feeling afraid as if something awful might happen: 0 = Not at all Total JYOTHI-7 score (0-4 normal; 5-9 mild; 10-14 moderate; 15-21 severe): 12 Source: Developed by Drs. Alexei Serna, Sirisha B.Luis Loyola and colleagues, with an educational alf from [employer] JYOTHI-7 Assessment Billing JYOTHI-7 Assessment Tool: JYOTHI-7 Assessment 75494 Physical exam (Primary Care) Vital Signs: Last Vital Signs Pulse 71 05/15/24 09:42 BP 100/70 05/15/24 09:42 Pulse Ox 97 05/15/24 09:42 Oxygen Delivery Method Room Air 05/15/24 09:42 Care Plan Goal for BP management: BP at 100/70 at goal/normal range BMI result Body Mass Index 24.8 Normal BMI. Instructed patient to continue her current diet and exercise regimen. Tobacco/Smoking Status: Tobacco use Status Tobacco use date assessed 05/15/24 05/15/24 09:45 Patient Tobacco Use Status Never used Tobacco 05/15/24 09:45 Tobacco use type Cigarette 05/15/24 09:45 e-Cigarette/Vaping Use Never Used 05/15/24 09:45 PHQ-9: PHQ-9 Score PHQ-9: Total score 12 05/15/24 12:50 Depression Screening Interpretation: Positive (Has been referred to the psychiatrist, patient will also be started on citalopram 10 mg daily with follow-up in 4 weeks) Depression Screening Follow-up: Existing condition, New Medication prescribed and Follow-up Visit Requested Thrive Assessment: Date of Thrive Assessment Date Thrive assessed 05/15/24 05/15/24 09:45 Currently or been in a relationship where the following occur: No concerns reported Coding Level of Care Code Est Pt Level 4 (53438) Complex EM visit Add On G2211 Diagnoses Follow-up exam, 3-6 months since previous exam Z09 Spondylosis, cervical M47.812 Chronic back pain M54.9; G89.29 Anxiety F41.9 Depression F32.A Screening for HPV (human papillomavirus) Z11.51 Breast cancer screening by mammogram Z12.31 Additional Codes JYOTHI-7 Assessment Billing - JYOTHI-7 Assessment Tool: JYOTHI-7 Assessment 20087 ([id number]) PHQ-9 - 61310 - PHQ-9 Billing: Yes ([id number]) Assessment & Plan Assessment & Plan (1) Follow-up exam, 3-6 months since previous exam: Code(s): Z09 - Encounter for follow-up examination after completed treatment for conditions other than malignant neoplasm Category: Medical (2) Spondylosis, cervical: Code(s): M47.812 - Spondylosis without myelopathy or radiculopathy, cervical region Category: Medical Plan: Condition is chronic and stable. Will refer to physical therapy. Instructed patient to continue Tylenol. Will prescribe Flexeril and a short course of prednisone. Will continue to monitor (3) Chronic back pain: Code(s): M54.9 - Dorsalgia, unspecified; G89.29 - Other chronic pain Category: Medical Plan: Condition is chronic and stable. Will refer to physical therapy. Instructed patient to continue Tylenol. Will prescribe Flexeril and a short course of prednisone. Will continue to monitor (4) Anxiety: Code(s): F41.9 - Anxiety disorder, unspecified Category: Medical Plan: Patient with increasing anxiety and depression over the past year. Psychiatry referral placed. Patient is started on citalopram 10 mg daily. Will continue to monitor and re-evaluate patient in 4 weeks. (5) Depression: Code(s): F32.A - Depression, unspecified Category: Medical Plan: Patient with increasing anxiety and depression over the past year. Psychiatry referral placed. Patient is started on citalopram 10 mg daily. Will continue to monitor and re-evaluate patient in 4 weeks. (6) Screening for HPV (human papillomavirus): Onset Date: ~05/30/21 Code(s): Z11.51 - Encounter for screening for human papillomavirus (HPV) Category: Medical Plan: Patient had HPV screening on 05/30/2021 which was negative. Will refer to manager gyn for repeat Pap smear. Will continue to monitor. (7) Breast cancer screening by mammogram: Onset Date: ~07/05/21 Code(s): Z12.31 - Encounter for screening mammogram for malignant neoplasm of breast Category: Medical Plan: Patient had a mammogram on 07/05/2021 which was within normal limits. Patient will need repeat mammogram this year. Patient will be referred for mammogram. Will continue to monitor. Plan Plan - Initiate Flexerill cyclobenzaprine) as a muscle relaxant. - Recommend physical therapy referral to assist with symptoms consistent with sciatica and bulging discs. - Considering a short course of prednisone to address inflammation contributing to nerve impingement. - Perform routine blood evaluations including thyroid function, cholesterol, vitamin D levels, , and fasting blood work to rule out other underlying conditions. - Continue ovarian cyst monitoring and follow up with gynecology for management, including necessary mammogram and referral. - patient will be started on citalopram for anxiety and depression. Referral to psychiatrist placed at this time as well. Orders: Orders PT Evaluation and Treatment Today G89.29 - Other chronic pain, M47.812 - Spondylosis without myelopathy or radiculopathy, cervical region, M54.9 - Dorsalgia, unspecified MM screening mammo BI Today Z12.31 - Encounter for screening mammogram for malignant neoplasm of breast Magnesium Today Z09 - Encounter for follow-up examination after completed treatment for conditions other than malignant neoplasm TSH reflex Free T4 Today Z09 - Encounter for follow-up examination after completed treatment for conditions other than malignant neoplasm Hemoglobin A1c Today Z09 - Encounter for follow-up examination after completed treatment for conditions other than malignant neoplasm Lipid Panel Today Z09 - Encounter for follow-up examination after completed treatment for conditions other than malignant neoplasm Vitamin D 25-OH Total Today Z09 - Encounter for follow-up examination after completed treatment for conditions other than malignant neoplasm Vitamin B12 and Folate Today Z09 - Encounter for follow-up examination after completed treatment for conditions other than malignant neoplasm Referrals Psychiatry Outpatient Consultation Service F32.A - Depression, unspecified, F41.9 - Anxiety disorder, unspecified [employer] Referral Z11.51 - Encounter for screening for human papillomavirus (HPV) Medications: New cyclobenzaprine 10 mg PO Q8H 30 tabs 1RF muscle spasm citalopram 10 mg PO DAILY 90 tabs 1RF depression prednisone 40 mg (2 x 20 mg) PO DAILY 10 tabs 0RF 5 days ondansetron 4 mg PO Q8H PRN 90 tabs 1RF nausea and vomiting Changed From albuterol sulfate 90 mcg/actuation (ProAir HFA) 1 puff inhalation QID 8.5 grams 0RF To albuterol sulfate 90 mcg/actuation 1 puff inhalation QID 8.5 grams 0RF Refilled albuterol sulfate 0.63 mg (3 mL) inhalation QID PRN 75 mL 0RF shortness of breath or wheezing erenumab-aooe (Aimovig Autoinjector) 140 mg subcut ONCE 1 mL 6RF 30 days Patient Instructions: Patient Instructions - Take prescribed medications, Flexeril, as directed. - Attend physical therapy sessions as referred to help alleviate pain. - Follow fasting instructions before blood tests, especially with no food or drink aside from water and black coffee, if necessary. - Expect to hear from gynecology for a mammogram and ovarian cyst follow-up. - Report any severe pain changes, unusual symptoms, or adverse medication side effects promptly. - Ensure completion of all blood work and prescribed interventions, maintaining scheduled follow-ups. - patient will be started on citalopram for anxiety/depression 10 mg. Patient instructed to return in 4 weeks for re-evaluation. Patient instructed not to abruptly stop this medication. - patient wants to go on FMLA due to chronic neck and back pain along with anxiety and depression. We explained to patient she can bring us the paperwork and we will fit this out. Scribe Plan - Not visible on output: History of Present Illness The patient is a 39-year-old female presenting with low back pain. The pain began about one month ago and has progressively worsened. It extends from the middle of the back down to the right leg, suggesting possible nerve compression. The patient has a history of bulging intervertebral discs and ovarian cysts. Previous emergency room visits documented the absence of kidney stones, though the patient has previously passed kidney stones. Current management includes morphine and Tylenol Extra Strength, but these have provided limited relief. The patient reports difficulty taking medication regularly due to her partner's work schedule. Pain is exacerbated by movement and affects her ability to walk without severe discomfort, forcing her to call out from work frequently. She denies any recent falls or specific injury that initiated the symptoms. Past medical history includes anxiety, and the patient reports prior use of tramadol for pain, which was more effective for her kidney stone-related pain. 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 Social History - Employment: Currently an office admin; previously worked as a dental retirement assistant for over 58 years. - Family: Lives with a boyfriend who works different shifts; unclear details regarding children, but mentions them being at home. - Functional Status: Currently limited due to back pain, which affects her mobility and ability to work. - Stress and Mental Health: Reports significant work-related stress and hopes for management via medication or other methods. Reports anxiety and recent aggression when on medication. Review of Systems - Musculoskeletal: Reports low back pain radiating to the right leg. - Neurological: Denies any falls or specific neurological symptoms beyond pain radiation. - Gastrointestinal: Reports constipation; denies any recent kidney stones. - Psychological: Reports anxiety but denies current treatment with medications like Ciclolopex. Physical Exam Appearance: Alert. Oriented X3. No acute distress. Head: Normal external exam. Normocephalic. Atraumatic. Eyes: Pupils are equal, round, and reactive to light. Extraocular movements intact. Conjunctiva and sclera normal. Eyelids normal. Ears: External auditory canal normal. Tympanic membranes normal. Throat: Pharynx normal. Uvula midline. Moist mucous membranes. Neck: Normal inspection. Neck supple. Full range of motion. No adenopathy. Thyroid Normal. No meningeal signs. No neck mass noted. Cardiovascular: Normal heart rate and rhythm. Heart sound normal. No murmurs noted. Pulses normal throughout. Respiratory: No respiratory distress. Painless inspiration. Breath sounds normal. No wheezes/rales/rhonchi noted. Chest nontender. No accessory muscle usage noted or decreased air movement noted. Abdomen: Soft and nontender. Bowel sounds normal in all 4 quadrants. No distention noted. No organomegaly noted. No visible injury noted. Back: Bulging disc noted. Pain reported from the middle of the back down to the right leg. No costovertebral angle tenderness. Full range of motion noted. Skin: Skin warm and dry. Normal skin color. Normal skin turgor. No rashes/lesions/lacerations noted. Extremities: No lower extremity edema. Extremities exhibit normal range of motion. Extremities nontender. Neuro: Oriented X 3. No motor deficit. No sensory deficit. Reflexes normal. Plan - Initiate Flexerill cyclobenzaprine) as a muscle relaxant. - Recommend physical therapy referral to assist with symptoms consistent with sciatica and bulging discs. - Considering a short course of prednisone to address inflammation contributing to nerve impingement. - Perform routine blood evaluations including thyroid function, cholesterol, vitamin D levels, , and fasting blood work to rule out other underlying conditions. - Continue ovarian cyst monitoring and follow up with gynecology for management, including necessary mammogram and referral. - patient will be started on citalopram for anxiety and depression. Referral to psychiatrist placed at this time as well. Patient was informed and verbally consented to the use of an ambient scribe for clinic note documentation during this visit. Discussion Notes During our discussion, I explained the potential diagnosis of a pinched nerve related to bulging discs and possibly sciatica. I discussed the role of anti-inflammatories and muscle relaxants in managing pain and improving mobility. I emphasized the importance of physical therapy as a non-pharmacological option to improve symptoms and functionality. We discussed medication options for anxiety management, highlighting the use of citalopram and its effects over the initial weeks of treatment. I addressed the need for follow-up with the gynecology team for ovarian cysts and planned mammogram, ensuring the patient understood the importance of these evaluations. Risks and benefits of medication were explored, particularly regarding side effects and interactions. The patient verbally consented to the therapeutic plan, and we agreed to revisit the effectiveness of management strategies in future consultations.
== END 2024-05-15 10:32 | disposition home or self-care (01) ==
PROVIDERS: PCP Internal Medicine; Visit Provider Internal Medicine
DX: Z09 Encounter for follow-up examination after completed treatment for conditions other than malignant neoplasm (principal); M47.812 Spondylosis without myelopathy or radiculopathy, cervical region; M54.9 Dorsalgia, unspecified; G89.29 Other chronic pain; F41.9 Anxiety disorder, unspecified; F32.A Depression, unspecified; Z11.51 Encounter for screening for human papillomavirus (HPV); Z12.31 Encounter for screening mammogram for malignant neoplasm of breast

== ENCOUNTER → 2024-05-15 09:35 | Outpatient (BNVA) | payer OTHER, SELFPAY | PROVIDERS: PCP Internal Medicine; Visit Provider Internal Medicine | DX: M47.812 Spondylosis without myelopathy or radiculopathy, cervical region (principal); G89.29 Other chronic pain; F41.9 Anxiety disorder, unspecified; F32.A Depression, unspecified; Z09 Encounter for follow-up examination after completed treatment for conditions other than malignant neoplasm | CPT/HCPCS: 96127; 99212 ==

== ENCOUNTER 2024-05-19 08:20 | Outpatient (REF) | payer OTHER, SELFPAY ==
[2024-05-19 09:07] LABS: Estimated Average Glucose 108 mg/dL; Hemoglobin A1C 120.8757 umol/L; Hemoglobin A1c % 5.4 % (<6.0); Total Hemoglobin (HGBA1C) 3391.0896 umol/L
[2024-05-19 09:28] LABS: Cholesterol 190 mg/dL (<200); HDL Cholesterol 48 mg/dL (>40); LDL Cholesterol Calculated 79 mg/dL (<100); Magnesium 1.8 mg/dL (1.6-2.6); Triglycerides 315 mg/dL (<150)
[2024-05-19 09:52] LABS: TSH reflex Free T4 0.83 uIU/mL (0.32-4.0); Vitamin D 25-OH Total 26.2 ng/mL (>30)
[2024-05-19 10:01] LABS: Folate 9.9 ng/mL (> or = 4.0); Vitamin B12 695 pg/mL (200-900)
== END 2024-05-19 08:21 | disposition home or self-care (01) ==
LOC: HO.LAB 08:20
PROVIDERS: PCP Internal Medicine; Visit Provider Physician Assistant Medical
DX: Z09 Encounter for follow-up examination after completed treatment for conditions other than malignant neoplasm (principal)
CPT/HCPCS: 36415; 80061; 82306; 82607; 82746; 83036; 83735; 84443

== ENCOUNTER 2024-05-24 08:49 | Outpatient (REF) | payer OTHER, SELFPAY | END 2024-05-24 08:50 | disposition home or self-care (01) | LOC: HO.MAMMO 08:49 | PROVIDERS: PCP Physician Assistant Medical; Visit Provider Internal Medicine | DX: Z12.31 Encounter for screening mammogram for malignant neoplasm of breast (principal) | CPT/HCPCS: 77063; 77067 ==

== ENCOUNTER → 2024-05-24 09:00 | Outpatient (BNV) | payer OTHER, SELFPAY | PROVIDERS: PCP Physician Assistant Medical; Visit Provider Internal Medicine | DX: Z12.31 Encounter for screening mammogram for malignant neoplasm of breast (principal) | CPT/HCPCS: 77063; 77067 ==

== ENCOUNTER 2024-06-11 08:56 | Outpatient (REF) | payer OTHER, SELFPAY ==
[2024-06-11 11:15] LABS: Hematocrit 40.7 % (37.0-47.0); Hemoglobin 13.7 g/dl (12.0-16.0); Mean Corpuscular HGB Conc 33.7 g/dl (31.0-35.0); Mean Corpuscular Hemoglobin 29.7 pg (27.0-33.0); Mean Corpuscular Volume 88.3 fL (80.0-98.0); Mean Platelet Volume 9.8 fL (9.4-12.3); Platelet Count 234 X10*3/uL (160-400); Red Blood Count 4.61 X10*6/uL (4.20-5.50); Red Cell Distribution Width 12.7 % (11.0-16.0); White Blood Count 6.1 X10*3/uL (4.8-10.8)
[2024-06-11 12:03] LABS: HCG Quantitative < 2 mIU/mL; TSH reflex Free T4 0.34 uIU/mL (0.32-4.0)
== END 2024-06-11 08:57 | disposition home or self-care (01) ==
LOC: HO.LAB 08:56
PROVIDERS: PCP Internal Medicine; Visit Provider Obstetrics & Gynecology
DX: N39.3 Stress incontinence (female) (male) (principal); D25.9 Leiomyoma of uterus, unspecified; Z30.09 Encounter for other general counseling and advice on contraception
CPT/HCPCS: 36415; 84443; 84702; 85027; 99212

== ENCOUNTER 2024-06-27 09:03 | Outpatient (AMB) | payer OTHER, SELFPAY ==
--- OUTSIDE RECORDS SUMMARY | 2024-06-27 09:29 | XMS_ITS | Encounter Summary ---
Author Organization [facility] Address [address] [place] [address] Care Team Providers Care Herb Digger Name Role Phone Candelaria Mejia MD Unavailable Unavailable Slava Soto Primary Care Provider Unav ailable Bill Jeffrey MD Primary Care Provider [phone] Kellee Caceres MD Primary Care Provider Unavail able Encounter Details Date Type Department Care Team Description 05/01/2018 Pt. Non Urgent Medical Question Chiropractic - [place] [address] [place] [address] Toby Calderón D.C. Social History Tobacco Use Types Packs/Day Years Used Date Smoking Tobacco: Never Smokeless Tobacco: Never Alcohol Use Standard Drinks/Week Comments No 0 (1 standard drink = 0.6 oz pur e alcohol) Sex Assigned at Date Recorded Not on file documented as of this encounter Plan of Treatment Not on file documented as of this encounter Visit Diagnoses Not on filedocumented in this encounter Care Teams Herb Digger Relationship Specialty Start Date End Date Slava Soto PCP - General Internal Medicine 12/12/17 06/03/18 Bill Jeffrey MD [address] [place] [id number] PCP - General Internal Medicine 06/04/18 06/30/18 Kellee Caceres MD [address] [place] [id number] PCP - General Internal Medicine 07/01/18 Candelaria Mejia MD Internal Medicine 01/28/14 documented as of this encounter
--- OUTSIDE RECORDS SUMMARY | 2024-06-27 09:29 | XMS_ITS | Encounter Summary ---
Author Organization [facility] Address [address] [place] [address] Care Team Providers Care Social Scientist Name Role Phone Candelaria Mejia MD Unavailable Unavailable Kellee Caceres MD Primary Care Provider Unavail able Encounter Details Date Type Department Care Team Description 08/08/2018 Release of Information Medical Records [address] [place] [id number] Abstract, Provider Social History Tobacco Use Types Packs/Day Years [...] on filedocumented in this encounter Care Teams Social Scientist Relationship Specialty Start Date End Date Kellee Caceres MD PCP - General Internal Medicine 07/01/18 Candelaria Mejia MD Internal Medicine 01/28/14 documented as of this encounter
--- NOTE | 2024-06-27 09:38 | MHC.PC.OV ---
Vital Signs 06/27/24 09:39 Height 5 ft Weight 126 lb 4 oz BMI 24.7 BP 110/70 Blood Pressure Location Rt brachial Position Sitting Pulse 97 Pulse Source Pulse Oximeter Temp 97.1 F Temp Source Temporal Artery Scan Pulse Oximetry (%) 94 Oxygen Delivery Method Room Air Intake Visit Reasons: 1mth f/u Conference Services Manager Required: No Brake Machine Operator: Not Required per policy Accompanied by: Self / Same As Patient Allergies Penicillins [PCN] Allergy (Severe, Verified 06/27/24 09:39) Anaphylaxis walnut Allergy (Severe, Verified 06/27/24 09:39) Anaphylaxis blueberry Allergy (Mild, Verified 06/27/24 09:39) Hives Medication List - Last Reconciled 06/27/24 by Destini Greenfield PA-C acetaminophen (Tylenol Extra Strength) 500 mg PO Q6H PRN albuterol sulfate 90 mcg/actuation (Ventolin HFA) 2 puffs inhalation Q6H PRN albuterol sulfate 0.63 mg (3 mL) inhalation QID PRN albuterol sulfate 90 mcg/actuation 1 puff inhalation QID celecoxib (Celebrex) 200 mg PO BID 2 weeks cholecalciferol (vitamin D3) 1,250 mcg PO QWEEK 3 months citalopram 10 mg PO DAILY cyclobenzaprine 10 mg PO Q8H erenumab-aooe (Aimovig Autoinjector) 140 mg subcut ONCE 30 days etonogestrel (Nexplanon) subdermal ONCE lidocaine 5% 1 patch topical DAILY naratriptan take 1/2 - 1 tab at onset of headache; if no relief may repeat 1 tab after at least 4 hrs; max = 2 tabs/24 hrs orally PRN; 30 days ondansetron 4 mg PO Q8H PRN pyridoxine (vitamin B6) 100 mg PO DAILY 90 days riboflavin (vitamin B2) 400 mg PO DAILY 30 days topiramate 25 - 50 mg (1 - 2 x 25 mg) PO BEDTIME 30 days Tobacco use date assessed: 05/15/24 Dental Screening Dental Screen Date: 05/15/24 HPI 1mth f/u HPI Details 39-year-old female with past medical history eczema, anxiety, depression, asthma, migraine last seen 05/[address] Marin coming in for follow up.?Her last visit she was started on citalopram 10 mg for treatment of depression and anxiety. Initiated citalopram for managing major depressive disorder, experiencing a significant reduction in irritability and impatience with no sedative effect. Lower back pain and neck pain are attributed to sedentary work conditions; partially relieved by physical therapy, but requiring further intervention such as palliative care specialist. Persistent cough ongoing since recent illness, impacting work capacity, non-productive but induces asthma-related symptoms. History of asthma, well-managed with inhaler use and prednisone during exacerbations. [facility] Medical History Anxiety and depression Cervicalgia Migraine with aura Alopecia Surgical History History of YAG laser capsulotomy of lens Family History Mother Ovarian cancer Hypertension Hypercholesteremia Father Asthma Alcoholism Liver disease Sister Asthma Depression Anemia Osteoporosis Other Mental health disorder Social History Housing: House Alcohol intake: never Patient Tobacco Use Status: Never used Tobacco Tobacco use type: Cigarette e-Cigarette/Vaping Use: Never Used Second Hand Smoke Exposure: No service: No Current occupational status: employed Current occupation: Dental Current occupational exposures/hazards: No Cognitive needs: No Hearing needs: No Vision needs: Yes Questionnaire PHQ-9 Over the last 2 weeks, how often have you been bothered by any of the following problems? 1. Little interest or pleasure in doing things: several days 2. Feeling down, depressed, or hopeless: more than half the days 3. Trouble falling or staying asleep, or sleeping too much: more than half the days 4. Feeling tired or having little energy: nearly every day 5. Poor appetite or overeating: nearly every day 6. Feeling bad about yourself - or that you are a failure or have let yourself or your family down: several days 7. Trouble concentrating on things, such as reading the newspaper or watching television: not at all 8. Moving or speaking so slowly that other people could have noticed. Or the opposite - being so fidgety or restless that you have been moving around a lot more than usual: not at all 9. Thoughts that you would be better off or of hurting yourself in some way: not at all Total score: 12 Depression Screening Interpretation: Positive (Has been referred to the psychiatrist, patient will also be started on citalopram 10 mg daily with follow-up in 4 weeks) Depression Screening Follow-up: Existing condition, New Medication prescribed and Follow-up Visit Requested Depression Screening Done: Yes 10249 - PHQ-9 Billing: Yes Source: Developed by Drs. Alexei Serna, Luis Glaser and colleagues, with an educational alf from [employer]. Thrive Questionnaire Date Thrive assessed: 05/15/24 AUDIT C Alcohol Use Questionnaire (AUDIT-C) 2. How many drinks containing alcohol do you have on a typical day when you are drinking?: 1 or 2 3. How often do you have six or more drinks on one occasion?: Never Total Score: 0 JYOTHI-7 AMB Questionnaire JYOTHI-7 Date JYOTHI - 7 assessed: 05/15/24 Source: Developed by Drs. Alexei Serna, Sirisha Lara, Luis Jennings and colleagues, with an educational alf from [employer]. Review of Systems Const Denies body aches, Denies chills, Denies fever(s), Denies headache(s) and Denies poor appetite Eyes Reports no additional complaints ENT Denies dizziness and Denies headache(s) Card Denies chest pain, Denies lightheadedness and Denies dyspnea Resp Reports cough and Denies dyspnea GI Reports no additional complaints Reports no additional complaints Musc Reports no additional complaints and Denies abnormal gait Skin/Breast Reports system reviewed and no additional complaints, except as documented Neuro Denies abnormal gait, Denies dizziness and Denies headache(s) Psych Reports no additional complaints Physical exam (Primary Care) Vital Signs: Last Vital Signs Temp 97.1 F 06/27/24 09:39 Pulse 97 06/27/24 09:39 BP 110/70 06/27/24 09:39 Pulse Ox 94 06/27/24 09:39 Oxygen Delivery Method Room Air 06/27/24 09:39 BMI result Body Mass Index 24.7 Tobacco/Smoking Status: Tobacco use Status Tobacco use date assessed 05/15/24 06/27/24 09:40 Patient Tobacco Use Status Never used Tobacco 06/27/24 09:40 Tobacco use type Cigarette 06/27/24 09:40 e-Cigarette/Vaping Use Never Used 06/27/24 09:40 PHQ-9: PHQ-9 Score PHQ-9: Total score 12 06/27/24 10:06 Depression Screening Interpretation: Positive (Has been referred to the psychiatrist, patient will also be started on citalopram 10 mg daily with follow-up in 4 weeks) Depression Screening Follow-up: Existing condition, New Medication prescribed and Follow-up Visit Requested Thrive Assessment: Date of Thrive Assessment Date Thrive assessed 05/15/24 06/27/24 09:40 Const General: cooperative, healthy appearing, comfortable and no acute distress Orientation/consciousness: patient oriented x3 HENMT Head: Yes normocephalic Ears: hearing grossly normal bilaterally General nose exam: Normal external nose present Eyes General: appearance normal, both eyes and all related structures Conjunctivae: conjunctivae normal Neck Neck: Yes full ROM and Yes no lymphadenopathy Resp Effort & Inspection: normal respiratory effort Auscultation: clear to auscultation bilaterally, no crackles, no rales, no rhonchi and no wheezes Cardio Rate: regular rate Rhythm: regular rhythm Skin General skin exam: no rashes or lesions noted Neuro General: patient oriented x3 Gait exam (Neuro): Normal gait present Extrem General: Yes normal to inspection, Yes full ROM and No edema Psych Affect: normal affect Attitude: cooperative Insight: Good insight present (Psych) Judgement: Good judgement present (Psych) Coding Level of Care Code Est Pt Level 3 (20866) Diagnoses Anxiety F41.9 Asthma J45.909 Depression F32.A Chronic back pain M54.9; G89.29 Additional Codes PHQ-9 - 63190 - PHQ-9 Billing: Yes ([id number]) Assessment & Plan Assessment & Plan (1) Anxiety: Code(s): F41.9 - Anxiety disorder, unspecified Category: Medical Plan: The current citalopram regimen will be maintained for managing the patient's depression with a monitoring focus on potential necessity for dose adjustment. Counseling services are advised for herself and her son in light of his upcoming needs in adult autism care. (2) Asthma: Code(s): J45.909 - Unspecified asthma, uncomplicated Category: Medical Plan: A prescription for acute cough management is issued, with recommendations to use asthma treatments as necessary and complete the current prednisone prescription. (3) Depression: Code(s): F32.A - Depression, unspecified Category: Medical Plan: Managed on citalopram referral placed for counseling services. She had discussion today with community navigator to discuss counseling services. (4) Chronic back pain: Code(s): M54.9 - Dorsalgia, unspecified; G89.29 - Other chronic pain Category: Medical Plan: A referral for chiropractic intervention is made to complement her continued physical therapy for back and neck pain management. Plan This note was constructed using voice recognition software. While every effort has been made to ensure accuracy and telemetry registered nurse, still areas may have been included sometimes these areas may affect the content or meeting of the given symptoms. Total time spent caring for the patient today was 20 minutes. This includes time spent before the visit reviewing the chart, time spent during the visit, and time spent after the visit and documentation. Orders: Referrals Chiropractic Referral G89.29 - Other chronic pain, M54.9 - Dorsalgia, unspecified Counseling Referral F32.A - Depression, unspecified, F41.9 - Anxiety disorder, unspecified Medications: New benzonatate 100 mg PO BID PRN 20 caps 0RF cough
[2024-06-27 09:39] VITALS: BP 110/70; PULSE 97; TEMP 36.2; O2SAT 94; BMI 24.7
== END 2024-06-27 10:56 | disposition home or self-care (01) ==
PROVIDERS: PCP Internal Medicine
DX: F41.9 Anxiety disorder, unspecified (principal); J45.909 Unspecified asthma, uncomplicated; F32.A Depression, unspecified; M54.9 Dorsalgia, unspecified; G89.29 Other chronic pain

== ENCOUNTER → 2024-06-27 09:03 | Outpatient (BNVA) | payer OTHER, SELFPAY | PROVIDERS: PCP Internal Medicine; Visit Provider Physician Assistant Medical | DX: F41.9 Anxiety disorder, unspecified (principal); J45.909 Unspecified asthma, uncomplicated; F32.A Depression, unspecified; M54.9 Dorsalgia, unspecified; G89.29 Other chronic pain | CPT/HCPCS: 96127; 99212 ==

== ENCOUNTER 2024-06-28 16:31 | Emergency (ER) | payer OTHER, SELFPAY ==
--- NOTE | ~2024-06-28 | XR_ITS ---
CLINICAL HISTORY: chest pain Chest Radiographs, 2 views Comparison: 02/28/22 Findings: No cardiomegaly. Normal mediastinal contours. No pneumothorax. No opacity. No pleural effusion. Normal upper abdomen. No acute fracture. Impression: No acute findings. This document has been electronically signed by: Shanna Dc MD on 06/28/2024 18:20:02
--- NOTE | 2024-06-28 16:34 | ECG_ITS ---
Test Reason : CHEST PAIN Blood Pressure : */* mmHG Vent. Rate : 98 BPM Atrial Rate : 98 BPM P-R Int : 154 ms QRS Dur : 68 ms QT Int : 340 ms P-R-T Axes : 77 78 36 degrees QTcB Int : 434 ms Normal sinus rhythm Normal ECG When compared with ECG of 02-Sep-2023 19:15, No significant changes seen Referred By: Janelle Mallory Electronically Signed By: MARY ANN BELTRÁN
[2024-06-28 16:56] VITALS: BP 128/76; PULSE 97; RESP 18; TEMP 37.1; O2SAT 96; BMI 24.2
--- NOTE | 2024-06-28 16:56 | ED_ITS ---
HPI - General Adult General Chief complaint: Upper Respiratory Symptoms Stated complaint: chest pain/sob/sharp pain left side Time Seen by Provider: 06/28/24 18:18 Source: patient Mode of arrival: ambulatory Limitations: no limitations History of Present Illness ED Provider: Janelle Mallory PA-C HPI narrative: Patient is a 39 year old assigned female at with a history of asthma prese nting to the emergency department today with a cough. Patient states that over the last 2 days she has had a cough, fever, nasal congestion, and pain with deep breathing. Patient denies any dizziness, lightheadedness, abdominal pain, nausea, vomiting, chills, blurry vision, double vision, loss of vision, difficulty breathing, shortness of breath, back pain, night sweats, pain with urination, increased urinary frequency, increased urinary urgency, blood in her urine or stool, syncope or a near syncopal episode, recent trauma or falls, bowel incontinence, bladder incontinence, or any other complaints at this time. Onset (ago): day(s) (2) Relieving factors: none Exacerbating factors: none Associated symptoms: chest pain, cough and fever/chills Treatments prior to arrival: none Related Data Home Medications ?Medication ?Instructions ?Recorded ?Confirmed etonogestrel 68 mg subdermal subdermal ONCE 08/10/21 06/27/24 implant (Nexplanon) Previous Rx's ?Medication ?Instructions ?Recorded albuterol sulfate 90 mcg/actuation 2 puff inhalation Q6H PRN 09/08/21 aerosol inhaler (Ventolin HFA) shortness of breath or wheezing #8.5 grams naratriptan 2.5 mg tablet See Rx Instructions PO .COMPLEX 09/15/22 PRN migraine headache 30 days #12 tabs riboflavin (vitamin B2) 400 mg 400 mg PO DAILY 30 days #30 tabs 09/15/22 tablet pyridoxine (vitamin B6) 100 mg 100 mg PO DAILY 90 days #90 tabs 04/19/23 tablet celecoxib 200 mg capsule (Celebrex) 200 mg PO BID 2 weeks #28 caps 09/02/23 topiramate 25 mg tablet 25 - 50 mg (1 - 2 x 25 mg) PO 09/21/23 BEDTIME 30 days #60 tabs acetaminophen 500 mg tablet 500 mg PO Q6H PRN pain #30 tabs 05/08/24 (Tylenol Extra Strength) lidocaine 5 % topical patch 1 patch topical DAILY #30 ea 05/08/24 albuterol sulfate 0.63 mg/3 mL 0.63 mg (3 mL) inhalation QID PRN 05/15/24 solution for nebulization shortness of breath or wheezing #75 mL albuterol sulfate 90 mcg/actuation 1 puff inhalation QID #8.5 grams 05/15/24 aerosol inhaler citalopram 10 mg tablet 10 mg PO DAILY depression #90 tabs 05/15/24 cyclobenzaprine 10 mg tablet 10 mg PO Q8H muscle spasm #30 tabs 05/15/24 ondansetron 4 mg disintegrating 4 mg PO Q8H PRN nausea and 05/15/24 tablet vomiting #90 tabs cholecalciferol (vitamin D3) 1,250 1,250 mcg PO QWEEK vit d 05/19/24 mcg (50,000 unit) capsule deficiency 3 months #13 caps erenumab-aooe 140 mg/mL 140 mg subcut ONCE 30 days #1 mL 05/19/24 subcutaneous auto-injector (Aimovig Autoinjector) benzonatate 100 mg capsule 100 mg PO BID PRN cough #20 caps 06/27/24 albuterol sulfate 90 mcg/actuation 1 inh inhalation QID #8.5 grams 06/28/24 aerosol inhaler prednisone 20 mg tablet 20 mg PO DAILY 7 days #7 tabs 06/28/24 Allergies Allergy/AdvReac Type Severity Reaction Status Date / Time Penicillins [PCN] Allergy Severe Anaphylaxis Verified 06/28/24 16:58 walnut Allergy Severe Anaphylaxis Verified 06/28/24 16:58 blueberry Allergy Mild Hives Verified 06/28/24 16:58 Review of Systems Constitutional: Constitutional: Reports no additional constitutional complaints, Denies chills, Reports fever(s) and Denies night sweats Eyes: Eyes: Reports no additional eye complaints, Denies blurry vision, Denies change in vision, Denies diplopia, Denies eye discharge, Denies loss of vision and Denies eye pain ENT: Denies dizziness and Reports nasal congestion Cardiovascular: Cardiovascular: Reports no additional cardiovascular complaints, Reports chest pain, Denies lightheadedness, Denies Loss of Consciousness and Denies dyspnea Respiratory: Respiratory: Reports no additional respiratory complaints, Reports cough and Denies dyspnea Gastrointestinal: Gastrointestinal: Reports no additional gastrointestinal complaints, Denies abdominal pain, Denies melena, Denies hematochezia, Denies change in bowel habits and Denies change in stool character Genitourinary: Genitourinary: Denies hematuria, Denies urinary frequency, Denies dysuria, Denies urinary incontinence, Denies urinary hesitancy and Denies urinary urgency Musculoskeletal: Musculoskeletal: Reports no additional musculoskeletal complaints, Denies numbness and Denies tingling Neurologic: Denies dizziness, Denies loss of vision, Denies numbness and Denies tingling Psychiatric: Psychiatric: Reports no additional psychiatric complaints Endocrine: Endocrine: Reports no additional endocrine complaints Hematologic/Lymphatic: Hematologic/Lymphatic: Reports no additional hematologic/lymphatic complaints Allergic/Immunologic: Allergic/Immunologic: Reports no additional allergic/immunologic complaints [facility] Past Medical History Attestation statement: The following information was validated with the patient. Source: old records reviewed and nursing notes reviewed Medical History Anxiety and depression Cervicalgia Migraine with aura Alopecia Surgical History History of YAG laser capsulotomy of lens Family History Family History Mother Ovarian cancer Hypertension Hypercholesteremia Father Asthma Alcoholism Liver disease Sister Asthma Depression Anemia Osteoporosis Other Mental health disorder Social History Social History Housing: House Alcohol intake: never Patient Tobacco Use Status: Never used Tobacco Tobacco use type: Cigarette e-Cigarette/Vaping Use: Never Used Second Hand Smoke Exposure: No Advance Directives: No Advance Directives Information Provided: No Do you have a plan to hurt others: No Plan service: No Current occupational status: employed Current occupation: Dental Current occupational exposures/hazards: No Cognitive needs: No Hearing needs: No Vision needs: Yes Physical Exam ED Vital Signs: Vital Signs - 24 hr 06/28/24 16:56 06/28/24 18:23 Temperature 98.8 F 98.8 F Pulse Rate 97 97 Respiratory Rate 18 18 Blood Pressure 128/76 128/76 Pulse Oximetry 96 96 Oxygen Delivery Method Room Air Room Air BMI result Body Mass Index 24.2 Const General: cooperative, no acute distress, alert and awake Nutritional Appearance: well nourished Orientation/consciousness: patient oriented x3 Limitations: no limitations HENMT Head: Yes normal to inspection and Yes atraumatic Ears: hearing grossly normal bilaterally and external ears normal General nose exam: Normal external nose present, no nasal discharge noted and no epistaxis Face and sinus: Yes normal facial exam, No abrasion and No laceration Mouth: Normal oral and palatal mucosa present, no drooling and no muffled voice Eyes General: appearance normal, both eyes and all related structures Periorbital: periorbital findings normal Eyelids: Yes eyelids normal Conjunctivae: conjunctivae normal Pupils: Equal, round and reactive pupils present EOM: EOMs intact bilaterally Neck Neck: Yes normal visual inspection, Yes full ROM and Yes no lymphadenopathy Chest Chest palpation & inspection: normal inspection of the chest Resp Effort & Inspection: normal respiratory effort and able to speak in complete sentences GI Inspection: Yes normal to inspection Neuro General: patient oriented x3, moves all extremities and CN's II-XI intact bilaterally Cranial nerves: Yes Equal, round and reactive pupils present Cognition (Neuro): normal cognition Extrem General: Yes normal to inspection, Yes full ROM and Yes capillary refill normal Psych Appearance: grossly normal Mental Status: mental status grossly normal Affect: normal affect Attitude: cooperative Thought process: Normal thought process present Thought content: Normal thought content present Insight: Good insight present (Psych) Course Course Course Narrative: RME performed by Janelle Mallory PA-C. Patient is a 39 year old assigned female at presenting to the emergency department with chest pain and cough. Patient states over the last 2 days she has been sick with a cough and is now having sharp chest pain worse with deep breathing. Detailed physical exam and review of systems are deferred to the [facility]. EKG, imaging, and swabs ordered. Patient placed back in the waiting room pending room availability and results. Medical Decision Making Medical Decision Making MDM Narrative: Patient is a 39 year old assigned female at with a history of asthma presenting to the emergency department today with a cough. Patient's physical exam was unremarkable. Patient's EKG was unremarkable. Patient's chest x-ray showed no acute process. Patient's influenza test was positive. I explained my physical exam findings as well as all test results to the patient. I answered all questions asked by the patient. I stressed the importance of the patient taking her medication as directed (either prescribed or as the over the counter packaging recommends). I stressed the importance of the patient following up with her primary care provider. I stressed the importance of the patient returning to the emergency department immediately if her symptoms were to worsen or if she were to develop any dizziness, shortness of breath, difficulty breathing, chest pain, blurry vision, loss of vision, nausea, vomiting, abdominal pain, fever, chills, back pain, or any other complaints. Patient verbalized agreement and understanding with this treatment plan and discharge. Differential Diagnosis Differential Diagnoses: The differential diagnosis associated with the presentation includes Influenza RSV COVID-19 Cough Admission/Observation Consideration of admission/observation: Escalation of care including admission/observation considered Patient would have been admitted to the hospital had her work up had any findings where hospital admission was appropriate and her clinical presentation warranted hospital admission. Lab Data [facility] Lab Attestation statement: I reviewed the patient's lab results. My interpretation of these results are in the [facility] Rationale portion of this note. Labs: Lab Results 06/28/24 Range/Units 17:04 Influenza Type A (PCR) POSITIVE A (Negative) Influenza Type B (PCR) NEGATIVE (Negative) RSV RNA Qual (PCR) NEGATIVE (Negative) SARS-CoV-2 RNA (RT-PCR) NEGATIVE (Negative) Independent Interpretation I performed an independent interpretation of an: EKG and Plain X-Ray Interpretation: My interpretation is in agreement with the radiologist's impression of this imaging study. CLINICAL HISTORY: chest pain Chest Radiographs, 2 views Comparison: 02/28/22 Findings: No cardiomegaly. Normal mediastinal contours. No pneumothorax. No opacity. No pleural effusion. Normal upper abdomen. No acute fracture. Impression: No acute findings. This document has been electronically signed by: Shanna Dc MD on 06/28/2024 18:20:02 Dictated By: Shanna Parikh MD Signed By: Electronically signed by Shanna Parikh MD 06/28/24 1633 I independently interpreted this EKG and am in agreement with the below findings: Vent. Rate: 98 BPM Atrial Rate: 98 BPM P-R Int: 154 ms QRS Dur: 68 ms QT Int: 340 ms P-R-T Axes: 77 78 36 degrees QTcB Int: 434 ms Normal sinus rhythm Normal ECG When compared with ECG of 02-Sep-2023 19:15, Nonspecific T wave abnormality no longer evident in Lateral leads DD/ 1644 Radiology Impression Discussion of test interpretation with radiology: I have reviewed the radiologist's reading. Discharge Plan Discharge Clinical Impression: Influenza Patient Disposition: Home, Self-Care Instructions: Influenza (DC) Additional Instructions: Follow up with your primary care provider. Return to the emergency department immediately if your symptoms worsen or if you develop any dizziness, shortness of breath, difficulty breathing, chest pain, blurry vision, loss of vision, nausea, vomiting, abdominal pain, fever, chills, back pain, or any other complaints. Prescriptions: New albuterol sulfate 90 mcg/actuation HFA aerosol inhaler 1 inh inhalation QID Qty: 8.5 0RF prednisone 20 mg tablet 20 mg PO DAILY 7 Days Qty: 7 0RF No Action pyridoxine (vitamin B6) 100 mg tablet 100 mg PO DAILY 90 Days Qty: 90 2RF topiramate 25 mg tablet 25 - 50 mg PO BEDTIME 30 Days Qty: 60 3RF Aimovig Autoinjector 140 mg/mL auto-injector 140 mg subcut ONCE 30 Days Qty: 1 6RF cholecalciferol (vitamin D3) 1,250 mcg (50,000 unit) capsule 1,250 mcg PO QWEEK 90 Days Qty: 13 0RF albuterol sulfate [Ventolin HFA] 90 mcg/actuation HFA aerosol inhaler 2 puff inhalation Q6H PRN (Reason: shortness of breath or wheezing) Qty: 8.5 0RF Rx Instructions: May substitute for medication approved by insurance acetaminophen [Tylenol Extra Strength] 500 mg tablet 500 mg PO Q6H PRN (Reason: pain) Qty: 30 0RF lidocaine 5 % adhesive patch,medicated 1 patch topical DAILY Qty: 30 0RF Rx Instructions: leave on most painful area for up to 12 hrs celecoxib [Celebrex] 200 mg capsule 200 mg PO BID 14 Days Qty: 28 0RF Nexplanon 68 mg implant subdermal ONCE riboflavin (vitamin B2) 400 mg tablet 400 mg PO DAILY 30 Days Qty: 30 6RF naratriptan 2.5 mg tablet See Rx Instructions PO .COMPLEX PRN (Reason: migraine headache) 30 Days Qty: 12 6RF Rx Instructions: take 1/2 - 1 tab at onset of headache; if no relief may repeat 1 tab after at least 4 hrs; max = 2 tabs/24 hrs orally PRN; cyclobenzaprine 10 mg tablet 10 mg PO Q8H Qty: 30 1RF albuterol sulfate 90 mcg/actuation HFA aerosol inhaler 1 puff inhalation QID Qty: 8.5 0RF albuterol sulfate 0.63 mg/3 mL solution for nebulization 0.63 mg inhalation QID PRN (Reason: shortness of breath or wheezing) Qty: 75 0RF citalopram 10 mg tablet 10 mg PO DAILY Qty: 90 1RF ondansetron 4 mg tablet,disintegrating 4 mg PO Q8H PRN (Reason: nausea and vomiting) Qty: 90 1RF benzonatate 100 mg capsule 100 mg PO BID PRN (Reason: cough) Qty: 20 0RF Referrals: David Marin MD [Primary Care Provider] - Interventions: ED Discharge Assessment Last Done: 06/28/24 18:23 Discharge Date/Time: 06/28/24 18:24 Print Language: Bengali
[2024-06-28 18:15] LABS: Influenza A PCR POSITIVE (Negative); Influenza B PCR NEGATIVE (Negative); Resp Syncy Virus RNA Qual PCR NEGATIVE (Negative); SARS COV2 PCR INHOUSE NEGATIVE (Negative)
[2024-06-28 18:23] VITALS: BP 128/76; PULSE 97; RESP 18; TEMP 37.1; O2SAT 96
== END 2024-06-28 18:24 | disposition home or self-care (01) ==
PROVIDERS: Physician Assistant Medical; Emergency Provider Emergency Medicine; PCP Internal Medicine
DX: J10.1 Influenza due to other identified influenza virus with other respiratory manifestations (principal); R05.9 Cough, unspecified; R07.9 Chest pain, unspecified; Z03.818 Encounter for observation for suspected exposure to other biological agents ruled out
CPT/HCPCS: 0241U; 71046; 93005; 99283

== ENCOUNTER → 2024-06-28 16:34 | Outpatient (BNV) | payer OTHER, SELFPAY | PROVIDERS: Emergency Provider Emergency Medicine; PCP Internal Medicine; Visit Provider Internal Medicine | DX: R07.9 Chest pain, unspecified (principal) | CPT/HCPCS: 93010 ==

== ENCOUNTER → 2024-06-28 16:58 | Outpatient (BNV) | payer OTHER, SELFPAY | PROVIDERS: Emergency Provider Emergency Medicine; PCP Internal Medicine; Visit Provider Radiology Diagnostic Radiology | DX: R07.9 Chest pain, unspecified (principal) | CPT/HCPCS: 71046 ==

== ENCOUNTER 2024-07-03 10:05 | Outpatient (RCR) | payer OTHER, SELFPAY ==
--- NOTE | 2024-06-02 16:47 | MHC.PT.EP ---
[facility] [place] [facility] [place] [facility] [place] [facility] [address] Justin Herrera [address] [phone] F: [phone] F: [phone] F: [phone] F: [phone] Physical Therapy Plan of Care Date of Evaluation: 06/02/24 Date of Surgery: Diagnosis: Other chronic pain, M47.812 - Spondylosis without myelopathy or radiculopathy, cervical region, M54.9 - Dorsalgia, unspecified Assessment: Pt is a 39 y/o female with PMHx significant for asthma, migraines, and anxiety, who reports 2 months of LBP which had been severe which she had sought ER treatment recently and her condition has been resulting in decreased tolerance for sitting, standing, and walking for duration, and performing heavy HH chores secondary to decreased trunk ROM and strength, decreased hip strength, mild pelvic asymmetry, and pain. Pt is deemed an appropriate candidate to receive skilled PT services to address their physical impairments in order to improve their functional ability. Frequency and Duration: The patient will be seen 2 x/ wk x 4 wks. Short Term Goals: initiate home program. Care Home Goals: I with home program. Pt will improve core strength by at least 1/2 MMT grade. Pt will be able to walk long distances with managed pain. Pt will improve Siddharth outcome measure. Treatment Plan: Modalities to reduce pain, spasms and effusion. Manual therapy to restore motion and function. Therapeutic exercise to improve strength and flexibility. Neuromuscular re-education for posture and balance. Therapeutic activities to return to functional activities of daily living. Electronically signed by: Elvin Santizo PT. Please sign and return to therapist. Thank you for your referral.
--- NOTE | 2024-07-03 14:56 | MHC.PT.DC ---
[facility] [place] Office [place] Office [place] Office [address] Justin Herrera 140 [facility] [phone] F: [phone] F: [phone] F: [phone] F: [phone] Physical Therapy Discharge Report Diagnosis: Other chronic pain, M47.812 - Spondylosis without myelopathy or radiculopathy, cervical region, M54.9 - Dorsalgia, unspecified Date of Surgery: Date of Evaluation: 06/02/24 Date of Discharge: 07/03/24 Treatments to Date: 7 Cancellations to Date: No Shows to Date: Discharge Status: Achieved Goals Improved Function Independent with HEP Discharge Summary: Lisa has been an active and motivated participant in her therapy and though she persists with some difficulty lifting objects of weight from the ground she has met her therapeutic goals, is I with her home program, and in agreement with DC today. Electronically signed by: Elvin Santizo PT. Please sign and return to therapist. Thank you for your referral.
== END 2024-07-03 14:58 | disposition home or self-care (01) ==
LOC: HO.PT 10:05
PROVIDERS: PCP Internal Medicine; Visit Provider Physician Assistant Medical
DX: M47.812 Spondylosis without myelopathy or radiculopathy, cervical region (principal); M54.9 Dorsalgia, unspecified; G89.29 Other chronic pain
CPT/HCPCS: 97110; 97140; 97161

== ENCOUNTER 2024-07-03 15:07 | Outpatient (AMB) | payer OTHER, SELFPAY ==
--- NOTE | 2024-07-03 15:11 | MHC.OFFVIS ---
Vital Signs 07/03/24 15:16 Height 5 ft Weight 123 lb BMI 24.0 Intake Visit Reasons: EMB Tile Sprayer Required: No Information Interpreted: non-clinical & clinical Flight Line Service Attendant: Flight Line Service Attendant Present (Liza Greenfield LAURA) Accompanied by: Self / Same As Patient Allergies Penicillins [PCN] Allergy (Severe, Verified 07/03/24 15:17) Anaphylaxis walnut Allergy (Severe, Verified 07/03/24 15:17) Anaphylaxis blueberry Allergy (Mild, Verified 07/03/24 15:17) Hives HPI Comments Details: Presenting for EMB [facility] Medical History Anxiety and depression Cervicalgia Migraine with aura Alopecia Surgical History History of YAG laser capsulotomy of lens Family History Mother Ovarian cancer Hypertension Hypercholesteremia Father Asthma Alcoholism Liver disease Sister Asthma Depression Anemia Osteoporosis Other Mental health disorder Social History Housing: House Alcohol intake: never Patient Tobacco Use Status: Never used Tobacco Tobacco use type: Cigarette e-Cigarette/Vaping Use: Never Used Second Hand Smoke Exposure: No service: No Current occupational status: employed Current occupation: Dental Current occupational exposures/hazards: No Cognitive needs: No Hearing needs: No Vision needs: Yes Female Reproductive History Menstrual control method: implanted Review of Systems Const All systems reviewed & are unremarkable except as noted in HPI and below Reports as per HPI and Reports no additional complaints GI Reports no additional complaints Reports no additional complaints Physical Exam Vital Signs: BMI result Body Mass Index 24.0 Office Procedures Endometrial Biopsy Details: The patient was counseled regarding the indication and benefits of endometrial sampling to rule out endometrial pathology including not limited to endometrial hyperplasia or endometrial cancer and others; The alternatives (Either do nothing vs. hysteroscopy D&C) & the risks were discussed with the patient including but not limited: pain, uterine perforation, bleeding, infection, possible injury to bladder, bowel, ureter, possible need for blood transfusion with all its possible risks. The patient verbalized understanding all questions answered and signed consent. Urine test done in the office was negative The patient was placed into the dorsal lithotomy position; a speculum was inserted in the vagina. Using aseptic technique for the procedure, the cervix was cleansed with Betadine. The anterior lip of the cervix was grasped with a single tooth tenaculum. The uterus was sounded to 7 cm with a 4 mm Pipelle was used. Tissues samples were obtained and placed in formalin, in a patient labeled container and sent to the pathology department. At the end of the procedure, there was minimal bleeding noted The patient tolerated the procedure well and was discharged in good condition with the following instructions: Nothing in the vagina until the bleeding stops. No sex until the bleeding stops, to call if any of the following occurs: fever (>100.4), flu-like symptoms, abdominal pain, heavy bleeding, four smelling vaginal discharge. The patient was instructed to schedule a Follow up appointment in 2 weeks to discuss pathology results of the biopsy and treatment options. This note was generated with a voice recognition program. Some errors may have been overlooked during the review of this note. Sometimes these errors may affect the content or meaning of a given sentence. [id number] Biopsy Results AMB Test Urine AMB Test Urine Negative Last Edit by Liza Greenfield CMA on 07/03/24 15:19 Results Reviewed Results Reviewed: Laboratory Last Values [facility]st Clinic Negative 07/03/24 15:19 Assessment & Plan Assessment & Plan (1) Abnormal uterine bleeding (AUB): Comment: on nexplanon Code(s): N93.9 - Abnormal uterine and vaginal bleeding, unspecified Category: Medical Plan: EMB done, see procedure note Orders: Orders AMB Endometrial Biopsy Today N93.9 - Abnormal uterine and vaginal bleeding, unspecified AMB HCG Urine Test Today Z32.02 - Encounter for test, result negative Coding Level of Care Code Procedure Only Diagnoses Abnormal uterine bleeding (AUB) N93.9 CPT Codes Endometrial Biopsy - CPT: 56121-Stvduywujmh Biopsy ([id number])
[2024-07-03 15:16] VITALS: BMI 24.0
--- OUTSIDE RECORDS SUMMARY | 2024-07-03 18:25 | XMS_ITS | Encounter Summary ---
Author Organization [facility] Address [address] [place] [address] Care Team Providers Care Stoper Name Role Phone Candelaria Mejia MD Unavailable Unavailable Slava Soto Primary Care Provider Unav ailable Bill Jeffrey MD Primary Care Provider [phone] Kellee Caceres MD Primary Care Provider Unavail able Encounter Details Date Type Department Care Team Description 12/25/2017 Battery Plate Assembler Report Medical Records [address] [place] [id number] Abstract, Provider Social History Tobacco Use Types [...] on filedocumented in this encounter Care Teams Stoper Relationship Specialty Start Date End Date Slava Soto PCP - General Internal Medicine 12/12/17 06/03/18 Bill Jeffrey MD [address] [place] [id number] PCP - General Internal Medicine 06/04/18 06/30/18 Kellee Caceres MD [address] [place] [id number] PCP - General Internal Medicine 07/01/18 Candelaria Mejia MD Internal Medicine 01/28/14 documented as of this encounter
--- OUTSIDE RECORDS SUMMARY | 2024-07-03 18:25 | XMS_ITS | Encounter Summary ---
Author Organization [facility] Address [address] [place] [address] Care Team Providers Care High Pressure Operator Name Role Phone Candelaria Mejia MD Unavailable Unavailable Slava Soto Primary Care Provider Unav ailable Bill Jeffrey MD Primary Care Provider [phone] Kellee Caceres MD Primary Care Provider Unavail able Encounter Details Date Type Department Care Team Description 05/01/2018 Pt. Non Urgent Medical Question Chiropractic - [place] [address] [place] [address] Toby Calderón D.C. Social History Tobacco Use [...] on filedocumented in this encounter Care Teams High Pressure Operator Relationship Specialty Start Date End Date Slava Soto PCP - General Internal Medicine 12/12/17 06/03/18 Bill Jeffrey MD [address] [place] [id number] PCP - General Internal Medicine 06/04/18 06/30/18 Kellee Caceres MD [address] [place] [id number] PCP - General Internal Medicine 07/01/18 Candelaria Mejia MD Internal Medicine 01/28/14 documented as of this encounter
--- OUTSIDE RECORDS SUMMARY | 2024-07-03 18:25 | XMS_ITS | Clinical Summary ---
Author Organization [facility] Address [address] [place] [address] Care Team Providers Care Skiver Box Toe Name Role Phone Candelaria Meija MD Unavailable Unavailable Kellee Caceres MD Primary Care Provider Unavail able Allergies Active Allergy Reactions Severity Noted Date Comments Nuts 01/30/2014 walnuts Penicillins Anaphylaxis,Rash/Dermatitis 009 Penicillins Swelling/Edema 01/30/2014 Medications Medication Sig Dispensed Refills Start Date End Date Status ALBUTEROL SULFATE (PROAIR HFA) 108 (90 BASE) MCG/ACT Aero Soln Inhale 2 Puffs into the lungs 4 times daily as needed for Cough or Wheezing. 1 Inhaler 5 10/25/2016 Active Etonogestrel 68 MG Implant Inject into the skin. nexplanon 0 Active fluticasone (FLOVENT HFA) 110 MCG/ACT inhaler Inhale 1 Puff into the lungs 2 times daily. 1 Inhaler 1 07/01/2018 Active amitriptyline (ELAVIL) 10 MG tablet Take 1 Tab by mouth at bedtime for 180 days. 30 Tab 5 07/24/2018 Active Active Problems Problem Noted Date Anxiety and depression 07/24/2018 Bipolar affective disorder 07/24/2018 PTSD (post-traumatic stress disorder) Bipolar disorder 10/25/2016 LSIL (low grade squamous intraepithelial lesion) on Pap smear 03/30/2014 Overview: [facility] Internal Sales Chronic low back pain 01/30/2014 Asthma Immunizations Name Administration Dates Next Due PPD-RBMG 09/01/2014 Tdap 10/25/2016 Family History Medical History Relation Name Comments CA Breast Aunt 1 paternal CA Breast Aunt 2 and colon cance r, maternal aunt Asthma Brother Asthma Father and 1 sister, b rother Diabetes Maternal Grandmother cholest jorge, glaucoma, unknown cancer Cholesterol Level Mother hypertensi on Asthma Sister 1 Bipolar Disorder Sister 2 Relation Name Status Comments Aunt 1 Aunt 2 Brother Alive 1 Father Alive Maternal Grandmother Mother Alive Sister 1 Alive 2 Sister 2 Social History Tobacco Use Types Packs/Day Years Used Date Smoking Tobacco: Never Smokeless Tobacco: Never Alcohol Use Standard Drinks/Week Comments No 0 (1 standard drink = 0.6 oz pur e alcohol) Sex Assigned at Date Recorded Not on file Last Filed Vital Signs Vital Sign Reading Time Taken Comments Blood Pressure 106/60 07/24/2018 9:29 AM EDT Pulse 98 07/24/2018 9:29 AM EDT Temperature 36.8 ??C (98.2 ??F) 07/24/2018 9:29 AM ED T Respiratory Rate 14 07/24/2018 9:29 AM EDT Oxygen Saturation 99% 02/17/2015 2:06 PM EDT Inhaled Oxygen Concentration - - Weight 56.6 kg (124 lb 11.2 oz) 07/24/2018 9:29 AM EDT Height 154.9 cm (5' 1 ) 07/24/2018 9:29 AM EDT Body Mass Index 23.56 07/24/2018 9:29 AM EDT Plan of Treatment Health Maintenance Due Date Last Done Comments Covid-19 Vaccine (#1) 1983 PNEUMOCOCCAL VACCINE FOR HIG H RISK PATIENTS (#1) 2002 CERVICAL CANCER SCREENING 03/18/2017 03/18/2014 CHOLESTEROL SCREENING 10/25/2021 10/25/2016 BASELINE HEALTH EXAM 40-64 2023 10/25/2016, MAMMOGRAM 2023 INFLUENZA (#1) 2024 DEPRESSION SCREENING/FOLLOWUP 05/07/2024, 07/24/2018, 07/24/2018, Additional history exists SOCIAL NEEDS SCREENING 05/07/2024 07/01/2018 DTAP/TDAP/TD (2 - Td or Tdap) 10/25/2026 10/25/2016 Care Teams Skiver Box Toe Relationship Specialty Start Date End Date Kellee Caceres MD PCP - General Internal Medicine 07/01/18 Candelaria Mejia MD Internal Medicine 01/28/14
--- OUTSIDE RECORDS SUMMARY | 2024-07-03 18:25 | XMS_ITS | Encounter Summary ---
Author Organization [facility] Address [address] [place] [address] Care Team Providers Care Clarity Specialists Name Role Phone Candelaria Mejia MD Unavailable Unavailable Kellee Caceres MD Primary Care Provider Unavail able Encounter Details Date Type Department Care Team Description 08/08/2018 Release of Information Medical Records [address] [place] [phone] Abstract, Provider Social History Tobacco Use Types [...] on filedocumented in this encounter Care Teams Clarity Specialists Relationship Specialty Start Date End Date Kellee Caceres MD PCP - General Internal Medicine 07/01/18 Candelaria Mejia MD Internal Medicine 01/28/14 documented as of this encounter
== END 2024-07-03 15:35 | disposition home or self-care (01) ==
LOC: HO.HWS 15:07
PROVIDERS: PCP Internal Medicine; Visit Provider Obstetrics & Gynecology
DX: N93.9 Abnormal uterine and vaginal bleeding, unspecified (principal); Z32.02 Encounter for pregnancy test, result negative
CPT/HCPCS: 58100

== ENCOUNTER 2024-07-03 15:07 | Outpatient (REF) | payer OTHER, SELFPAY | END 2024-07-03 15:08 | disposition home or self-care (01) | LOC: HO.LNP 15:07 | PROVIDERS: PCP Internal Medicine; Visit Provider Obstetrics & Gynecology | DX: N93.9 Abnormal uterine and vaginal bleeding, unspecified (principal); N85.8 Other specified noninflammatory disorders of uterus; Z32.02 Encounter for pregnancy test, result negative; Z97.5 Presence of (intrauterine) contraceptive device | CPT/HCPCS: 58100; 81025; 88305 ==

== ENCOUNTER 2024-07-22 07:50 | Outpatient (AMB) | payer OTHER, SELFPAY ==
--- NOTE | 2024-07-22 07:53 | A.OFFVIS_ITS ---
Vital Signs 07/22/24 07:56 Height 5 ft Weight 123 lb BMI 24.0 BP 118/72 Intake Visit Reasons: EMB results/ control follow up Tube Man Required: No Information Interpreted: non-clinical & clinical Accompanied by: Self / Same As Patient Allergies Penicillins [PCN] Allergy (Severe, Verified 07/22/24 07:56) Anaphylaxis walnut Allergy (Severe, Verified 07/22/24 07:56) Anaphylaxis blueberry Allergy (Mild, Verified 07/22/24 07:56) Hives HPI Comments Details: The patient is presenting after endometrial biopsy. The patient has no complaints, no vaginal bleeding, no feverishness chills or abdominal pain. The following workup was done. Endometrial biopsy pathology showed the following: Inactive endometrium and tubal metaplasia; negative for atypia, hyperplasia or malignancy Last co testing was in 05/28 was negative Last mammogram was in 05/31 was BI-RADS 1 Pelvic ultrasound done in 05/31 showed the following: Uterus: The uterus is anteverted and, anteflexed measures 6.57 x 3.6 x 4.6 cm. The double wall endometrial thickness is 6 mm. There is a hypoechoic lesion along the upper body of uterus measuring 1.2 x 0.95 x 1.2 cm. No additional lesions seen. The uterus is homogeneous in echotexture. There is anechoic nabothian cysts Adnexa: Both ovaries are visualized. There is normal color flow to the adnexa. There is no ovarian torsion. There is no pelvic ascites or fluid collection. Right ovary measures 3.8 x 2.5 x 3.1 cm. Volume 15.4 mL. There is anechoic simple cyst measuring 1.6 x 1.3 x 2.1 cm. Left ovary measures 2.5 x 1.9 x 2.3 cm. Volume 5.7 mL. There is no free fluid in the cul-de-sac. 07/01 H&H 13.7/40.7, TSH, hCG negative PFSH Medical History Anxiety and depression Cervicalgia Migraine with aura Alopecia Surgical History History of YAG laser capsulotomy of lens Family History Mother Ovarian cancer Hypertension Hypercholesteremia Father Asthma Alcoholism Liver disease Sister Asthma Depression Anemia Osteoporosis Other Mental health disorder Social History Housing: House Alcohol intake: never Patient Tobacco Use Status: Never used Tobacco Tobacco use type: Cigarette e-Cigarette/Vaping Use: Never Used Second Hand Smoke Exposure: No service: No Current occupational status: employed Current occupation: Dental Current occupational exposures/hazards: No Cognitive needs: No Hearing needs: No Vision needs: Yes Review of Systems Const All systems reviewed & are unremarkable except as noted in HPI and below Reports as per HPI and Reports no additional complaints GI Reports no additional complaints Reports no additional complaints Physical Exam Vital Signs: Last Vital Signs BP 118/72 07/22/24 07:56 BMI result Body Mass Index 24.0 Office Procedures IUD Insert/Removal Details Details: The patient is presenting for Mirena IUD insertion Urine test was done in the office and was negative; All the contraindications were excluded. The following possible complications were discussed with the patient: Intr auterine , Ectopic , Sepsis, Pelvic Infection, Irregular Bleeding and Amenorrhea, Perforation, Expulsion, Ovarian Cysts, Breast Cancer, The following adverse effects were discussed with the patient: alteration of menstrual bleeding pattern, including: unscheduled uterine bleeding decreased uterine bleeding increased scheduled uterine bleeding female genital tract bleeding ,amenorrhea , genital discharge , vulvovaginitis , breast pain , benign ovarian cyst and associated complications , dysmenorrhea , Gastrointestinal disorders abdominal/pelvic pain, headache/migraine , back pain , acne , depression Alternative options were discussed with the patient including but not limited: control pills, patch, NuvaRing, Depo-medroxyprogesterone acetate, Nexplanon, copper IUD, sterilization, vasectomy, others The procedure was explained in detail to patient , at the end patient signed the informed consent obtained. A no touch technique was used throughout the procedure. A speculum was placed into vagina and cervix was cleaned with betadine). A tenaculum was placed. A plastic sound was advanced through the external and internal os until it reached the fundus of the uterus, the depth was 8 cm. The sound was then withdrawn. The IUD was loaded in a sterile manner and advanced into position. The string was visualized and cut to 3 cm. Tenaculum site hemostatic. All instruments removed from vagina. Patient tolerated the procedure well. NO complications were noted. Patient was instructed to call for fever over 100.4, significant pain unrelieved by Motrin, IUD expulsion, heavy bleeding, or abnormal discharge. In addition, the following clinical considerations were discussed with the patient to call for removal: A stroke or heart attack ,Very severe or migraine headaches ,Unexplained fever ,Yellowing of the skin or whites of the eyes, as these may be signs of serious liver problems , or suspected , Pelvic pain or pain during sex ,HIV positive seroconversion in herself or her partner , Possible exposure to sexually transmitted infections Unusual vaginal discharge or genital sores , severe vaginal bleeding or bleeding that lasts a long time, or if she misses a menstrual period, Inability to feel Mirena's threads Counseled the patient that the IUD does not protect against STI's, recommended use of condoms for the first 7 days post insertion and explained to the patient that condoms are recommended for patients at risk for sexually transmitted infections. Informed the patient that Mirena IUD is FDA approved for 8 years for contra ception for 5 years for the treatment of heavy menses Instructed the patient to schedule a Follow up appointment in 4 to 6 weeks following insertion. This note was generated with a voice recognition program. Some errors may have been overlooked during the review of this note. Sometimes these errors may affect the content or meaning of a given sentence. 43789-MWF Insertion Procedure code (CPT) selection complete Contraception Insert/Removal Details Details: Counseling/Consent: After discussing with the patient the risks of the procedure including bleeding, infection, scar tissue formation, , possible injury to blood vessels or nerves, chronic arm pain, blood transfusion, and irre gular unpredictable bleeding Preopdx: Requesting Nexplanon removal Op: Nexplanon Removal Post op dx: same EBL= 10 cc Procedure: After discussing with the patient the risks of the procedure including bleeding, infection, scar tissue formation, the patient signed the consent and agreed with the plan; all questions answered. The patient was then put in the dorsal supine position with Left arm in which Nexplanon is located exposed. Then the area was scrubbed with betadine. Nexplanon was located next by palpation and the end closest to the elbow was marked with a sterile marker. 5cc 1% Xylocaine was used to anesthetize the area at the site near the tip of Nexplanon. Next, a 3 mm incision in the longitudinal direction of the arm at the tip of the implant was made and the Nexplanon was pushed toward the incision until the tip was visible. The implant was grasped with a curved mosquito forceps and pulled out gently. Then incision was closed with steri-strips approximating the edges and an adhesive bandage was applied. A pressure bandage was applied with sterile gauze to minimize bruising. At the end explained to the patient that she is not covered with contraception anymore and recommended for her to use another contraceptive method. Discharge instructions: Patient was instructed to call if any of the following occurs :temperature above 100.4, pain at the side of the incision, redness, discharge or gapping, arm pain or bleeding. All questions answered patient verbalized understanding . This note was generated with a voice recognition program. Some errors may have been overlooked during the review of this note. Sometimes these errors may affect the content or meaning of a given sentence. 61354 - Removal Office Meds Mirena 21 mcg/24 hr (up to 8 years) 52 mg intrauterine device Performing Provider: Fred Morejon MD Performing Location: [facility] [place] [facility] Documented (not given) by: Fred Morejon MD on 07/22/24 08:54 Dose Route Admin Location Dispensed Lot Number Expiration Date [facility] Access Consultant 1 device intrauterine ea Nexplanon 68 mg subdermal implant Performing Provider: Fred Morejon MD Performing Location: [facility] [place] [facility] Documented (not given) by: Fred Morejon MD on 07/22/24 08:54 Reason Not Given: No Longer Necessary Assessment & Plan Assessment & Plan (1) Abnormal uterine bleeding (AUB): Comment: on nexplanon Code(s): N93.9 - Abnormal uterine and vaginal bleeding, unspecified Category: Medical Plan: Discussed with the patient the results of the work up done and options of treatment including Lysteda, control pills, Mirena IUD, endometrial ablation and hysterectomy. All pros, cons, risks and benefits if each option was discussed with the patient and the patient decided to go ahead with Mirena IUD so a more detailed discussion about it was conducted including mechanism of action, risks (uterine perforation, infection, injury to bladder, bowel, displacement, and others) benefits (hypo menorrhea, amenorrhea, ...). GC/CT were taken, Nexplanon removed, see procedure note and Mirena IUD insertion was inserted, see procedure. All questions answered, the patient verbalized understanding (2) Nexplanon removal: Code(s): Z30.46 - Encounter for surveillance of implantable subdermal contraceptive Category: Medical Plan: Nexplanon removed, see procedure note (3) Encounter for insertion of Mirena IUD: Code(s): Z30.430 - Encounter for insertion of intrauterine contraceptive device Category: Medical Plan: Mirena IUD inserted, see procedure note Orders: Orders AMB IUD Insertion/Removal - Practice Supplied Today Z30.430 - Encounter for insertion of intrauterine contraceptive device AMB Nexplanon/Implanon Insertion/Removal - Practice Supplied Today Z30.46 - Encounter for surveillance of implantable subdermal contraceptive Medications: New Nexplanon (etonogestrel) 1 implant subdermal ONCE 1 ea 0RF NS Z30.46 - Encounter for surveillance of implantable subdermal contraceptive Mirena (levonorgestrel) 1 device intrauterine ONCE 1 ea 0RF IUD insertion NS Z30.430 - Encounter for insertion of intrauterine contraceptive device Coding Level of Care Code Est Pt Level 3 (86379) Procedure Only Diagnoses Abnormal uterine bleeding (AUB) N93.9 Nexplanon removal Z30.46 Encounter for insertion of Mirena IUD Z30.430 CPT Codes Details - CPT: 02421-NPJ Insertion ([id number]) Details - Contraception: 31874 - Removal ([id number])
[2024-07-22 07:56] VITALS: BP 118/72; BMI 24.0
== END 2024-07-22 09:01 | disposition home or self-care (01) ==
LOC: HO.HWS 07:50
PROVIDERS: PCP Internal Medicine; Visit Provider Obstetrics & Gynecology
DX: N93.9 Abnormal uterine and vaginal bleeding, unspecified (principal); Z30.46 Encounter for surveillance of implantable subdermal contraceptive; Z30.430 Encounter for insertion of intrauterine contraceptive device
CPT/HCPCS: 11982; 58300; 99213

== ENCOUNTER 2024-07-22 07:50 | Outpatient (REF) | payer OTHER, SELFPAY ==
[2024-07-23 03:59] LABS: CT PCR NOT DETECTED (Not Detect.); NG PCR NOT DETECTED (Not Detect.)
== END 2024-07-22 07:51 | disposition home or self-care (01) ==
LOC: HO.LNP 07:50
PROVIDERS: PCP Internal Medicine; Visit Provider Obstetrics & Gynecology
DX: Z30.430 Encounter for insertion of intrauterine contraceptive device (principal); Z30.46 Encounter for surveillance of implantable subdermal contraceptive
CPT/HCPCS: 11982; 58300; 87491; 87591; 99212; J7298

== ENCOUNTER 2024-08-08 10:35 | Emergency (ER) | payer OTHER, SELFPAY ==
--- NOTE | ~2024-08-08 | XR_ITS ---
EXAMINATION: XR CHEST 2 VIEWS HISTORY: cp COMPARISON: Comparison is made with the prior examination dated 06/28/2024. FINDINGS: PA and lateral views of the chest are submitted. The lungs are expanded and clear. There is no pleural effusion, pneumothorax, or pulmonary vascular congestion. The heart is normal in size. The bones are intact. XR/XR chest 2V IMPRESSION: No acute cardiopulmonary abnormality. Electronically signed by: Alexei Pacheco MD 08/08/2024 11:03 AM EDT
--- NOTE | 2024-08-08 10:36 | ECG_ITS ---
Test Reason : CHEST PAIN Blood Pressure : */* mmHG Vent. Rate : 82 BPM Atrial Rate : 82 BPM P-R Int : 174 ms QRS Dur : 74 ms QT Int : 366 ms P-R-T Axes : 72 73 39 degrees QTcB Int : 427 ms Normal sinus rhythm Normal ECG When compared with ECG of 28-Jun-2024 16:44, No significant change was found Referred By: Generic ED Physician Electronically Signed By: MARY ANN BELTRÁN
[2024-08-08 10:46] VITALS: BP 113/77; PULSE 81; RESP 16; O2SAT 100; BMI 23.2
[2024-08-08 11:18] LABS: MANUAL DIFF FLAG NO
[2024-08-08 11:19] LABS: Basophils Percent Auto 0.7 % (0-2); Eosinophils Absolute Auto 0.3 X10*3/uL (0.0-0.4); Eosinophils Percent Auto 5.2 % (0-4); Hematocrit 41.3 % (37.0-47.0); Imm Gran Abs Auto 0.02 X10*3/uL (0.00-0.03); Imm Gran Pct Auto 0.4 % (0.0-0.4); Lymphocytes Absolute Auto 2.4 X10*3/uL (1.2-4.9); Lymphocytes Percent Auto 42.8 % (20-40); Mean Corpuscular HGB Conc 33.9 g/dl (31.0-35.0); Mean Corpuscular Hemoglobin 29.4 pg (27.0-33.0); Mean Corpuscular Volume 86.8 fL (80.0-98.0); Mean Platelet Volume 9.6 fL (9.4-12.3); Monocytes Absolute Auto 0.4 X10*3/uL (0.1-1.2); Monocytes Percent Auto 6.7 % (2-11); Neutrophils Absolute Auto 2.5 x10*3/uL (2.0-8.3); Neutrophils Percent Auto 44.2 % (45-73); Platelet Count 233 X10*3/uL (160-400); Red Blood Count 4.76 X10*6/uL (4.20-5.50); White Blood Count 5.5 X10*3/uL (4.8-10.8)
[2024-08-08 11:22] LABS: UPreg QC Valid YES
[2024-08-08 11:24] LABS: Urine Pregnancy NEGATIVE (NEGATIVE)
[2024-08-08 12:00] LABS: Alanine Aminotransferase 12 U/L (0-31); Albumin Level 4.3 g/dL (3.5-5.0); Alkaline Phosphatase 81 U/L (39-117); Anion Gap 12 (12-20); Aspartate Amino Transferase 18 U/L (5-31); Bilirubin Total 0.6 mg/dL (0.0-1.0); Blood Urea Nitrogen 16 mg/dL (9-16); Carbon Dioxide 24 mmol/L (22-29); Chloride 107 mmol/L (96-108); Creatinine Clr Calc Pharmacy 70.9; Estimated Glomerular Filt Rate > 60; Glucose Random 91 mg/dL (60-115); Potassium 3.6 mmol/L (3.3-5.1); Sodium 139 mmol/L (135-145); Total Protein 7.5 g/dL (6.5-8.0)
[2024-08-08 12:39] LABS: Troponin-I High Sensitivity < 2.7 ng/L (<3.5-17.0)
--- OUTSIDE RECORDS SUMMARY | 2024-08-08 13:04 | XMS_ITS | Encounter Summary ---
Author Organization [facility] Address [address] [place] [address] Care Team Providers Care Gatehouse Attendant Name Role Phone Candelaria Mejia MD Unavailable Unavailable Slava Soto Primary Care Provider Unav ailable Bill Jeffrey MD Primary Care Provider [phone] Kellee Caceres MD Primary Care Provider Unavail able Encounter Details Date Type Department Care Team Description 05/01/2018 Pt. Non Urgent Medical Question Chiropractic - [place] [address] [place] [address] Toby Calderón D.C. Social History Tobacco Use [...] on filedocumented in this encounter Care Teams Gatehouse Attendant Relationship Specialty Start Date End Date Slava Soto PCP - General Internal Medicine 12/12/17 06/03/18 Bill Jeffrey MD [address] [place] [id number] PCP - General Internal Medicine 06/04/18 06/30/18 Kellee Caceres MD [address] [place] [id number] PCP - General Internal Medicine 07/01/18 Candelaria Mejia MD Internal Medicine 01/28/14 documented as of this encounter
--- OUTSIDE RECORDS SUMMARY | 2024-08-08 13:04 | XMS_ITS | Encounter Summary ---
Author Organization [facility] Address [address] [place] [address] Care Team Providers Care Marketing Editor Name Role Phone Candelaria Mejia MD Unavailable Unavailable Slava Soto Primary Care Provider Unav ailable Bill Jeffrey MD Primary Care Provider [phone] Kellee Caceres MD Primary Care Provider Unavail able Encounter Details Date Type Department Care Team Description 01/17/2018 Pt. Non Urgent Medical Question Chiropractic - [place] [address] [place] [address] Toby Calderón D.C. Social History Tobacco Use Types Packs/Day Years Used Date Smoking Tobacco: Never Smokeless Tobacco: Never Alcohol Use Standard Drinks/Week Comments No 0 (1 standard drink = 0.6 oz pur e alcohol) Sex Assigned at Date Recorded Not on file documented as of this encounter Progress Notes * Samira Lala - 01/17/2018 9:16 AM EDTFrom: Lisa Godinez To: Toby Calderón D.C. Sent: 01/17/2018 7:55 AM EDT Subject: anabelle Calderón I will call or make the appointment for my next available day. Sorry for the inconvenience. Thank you, Lisa Godinez documented in this encounter Plan of Treatment Not on file documented as of this encounter Visit Diagnoses Not on filedocumented in this encounter Care Teams Marketing Editor Relationship Specialty Start Date End Date Slava Soto PCP - General Internal Medicine 12/12/17 06/03/18 Bill Jeffrey MD [address] [place] [id number] PCP - General Internal Medicine 06/04/18 06/30/18 Kellee Caceres MD [address] [place] [id number] PCP - General Internal Medicine 07/01/18 Candelaria Mejai MD Internal Medicine 01/28/14 documented as of this encounter
--- OUTSIDE RECORDS SUMMARY | 2024-08-08 13:04 | XMS_ITS | Clinical Summary ---
Author Organization [facility] Address [address] [place] [address] Care Team Providers Care Boatbuilder Apprentice Wood Name Role Phone Candelaria Mejia MD Unavailable [...] intraepithelial lesion) on Pap smear 03/30/2014 Overview: [facility] Chronic low back pain 01/30/2014 Asthma Immunizations [...] HEALTH EXAM 40-64 2023 10/25/2016, MAMMOGRAM 2023 DEPRESSION SCREENING/FOLLOWUP 05/07/2024, 07/24/2018, 07/24/2018, Additional history exists SOCIAL NEEDS SCREENING 05/07/2024 07/01/2018 INFLUENZA (Season Ended) 2025 DTAP/TDAP/TD (2 - Td or Tdap) 10/25/2026 10/25/2016 Care Teams Boatbuilder Apprentice Wood Relationship Specialty Start Date End Date Kellee Caceres MD PCP - General Internal Medicine 07/01/18 Candelaria Mejia MD Internal Medicine 01/28/14
--- OUTSIDE RECORDS SUMMARY | 2024-08-08 13:04 | XMS_ITS | Encounter Summary ---
Author Organization [facility] Address [address] [place] [address] Care Team Providers Care Sidehand Name Role Phone Candelaria Mejia MD Unavailable Unavailable Candelaria Mejia MD Primary Care Provider Unava ilable Christian Riley MD Primary Care Provider Unavaila Melanie Blackman MD Primary Care Provider [phone] Bill Jeffrey MD Primary Care Provider [phone] Slava Soto Primary Care Provider Unav ailable Bill Jeffrey MD Primary Care Provider [phone] Kellee Caceres MD Primary Care Provider Unavail able Encounter Details Date Type Department Care Team Description 09/02/2014 Transfer Records Medical Records [address] [place] [id number] Abstract, Provider Social History Tobacco Use Types Packs/Day Years Used Date Smoking Tobacco: Never Alcohol Use Standard Drinks/Week Comments Yes 0 (1 standard drink = 0.6 oz pur e alcohol) occa Sex Assigned at Date Recorded Not on file documented as of this encounter Plan of Treatment Not on file documented as of this encounter Visit Diagnoses Not on filedocumented in this encounter Care Teams Sidehand Relationship Specialty Start Date End Date Candelaria Mejia MD PCP - General Internal Medicine 03/19/14 02/16/15 Christian Riley MD PCP - General Internal Medicine 02/17/15 06/20/15 Melanie Lewis MD [address] [place] [address] PCP - General Internal Medicine 06/21/15 10/24/16 Bill Jeffrey MD [address] [place] [id number] PCP - General Internal Medicine 10/25/16 12/11/17 Slava Soto [address] [place] [id number] PCP - General Internal Medicine 12/12/17 06/03/18 Bill Jeffrey MD [address] [place] [id number] PCP - General Internal Medicine 06/04/18 06/30/18 Kellee Caceres MD [address] [place] [id number] PCP - General Internal Medicine 07/01/18 Candelaria Mejia MD Internal Medicine 01/28/14 documented as of this encounter
--- NOTE | 2024-08-08 13:33 | PC.NURSE ---
Patient presents with chest pain with assoc palpitations, lightheaded, and tingling in her fingertips for the past week progressively getting worse. States panic attacks x 2 this week as well and unable to sleep.
[2024-08-08 13:35] VITALS: BP 123/71; PULSE 64; RESP 16; TEMP 36.4; O2SAT 100
--- NOTE | 2024-08-08 14:06 | ED.CHESTPAIN ---
HPI - Chest Pain General Chief Complaint: Chest Pain Stated Complaint: Chest Pain Time Seen by Provider: 08/08/24 13:48 History of Present Illness HPI narrative: patient is a 39-year-old female with a history of having chest pain mid chest on and off lasting few minutes each time at other times patient has palpitation. She has been feeling under increasing stress at work. No history of diabetes no history of hypertension, high cholesterol, smoking, mi. patient from home. Deep palpitation that is usually fast is not associated with diaphoresis patient feels that she is under increasing stress at work. There is no leg swelling. There is no history of blood clots. Patient is not on control and did not travel long distances. She does not have a family history of coronary artery disease. Related Data Previous Rx's ?Medication ?Instructions ?Recorded albuterol sulfate 90 mcg/actuation 2 puff inhalation Q6H PRN 09/08/21 aerosol inhaler (Ventolin HFA) shortness of breath or wheezing #8.5 grams naratriptan 2.5 mg tablet See Rx Instructions PO .COMPLEX 09/15/22 PRN migraine headache 30 days #12 tabs riboflavin (vitamin B2) 400 mg 400 mg PO DAILY 30 days #30 tabs 09/15/22 tablet pyridoxine (vitamin B6) 100 mg 100 mg PO DAILY 90 days #90 tabs 04/19/23 tablet celecoxib 200 mg capsule (Celebrex) 200 mg PO BID 2 weeks #28 caps 09/02/23 topiramate 25 mg tablet 25 - 50 mg (1 - 2 x 25 mg) PO 09/21/23 BEDTIME 30 days #60 tabs acetaminophen 500 mg tablet 500 mg PO Q6H PRN pain #30 tabs 05/08/24 (Tylenol Extra Strength) lidocaine 5 % topical patch 1 patch topical DAILY #30 ea 05/08/24 albuterol sulfate 0.63 mg/3 mL 0.63 mg (3 mL) inhalation QID PRN 05/15/24 solution for nebulization shortness of breath or wheezing #75 mL albuterol sulfate 90 mcg/actuation 1 puff inhalation QID #8.5 grams 05/15/24 aerosol inhaler citalopram 10 mg tablet 10 mg PO DAILY depression #90 tabs 05/15/24 cyclobenzaprine 10 mg tablet 10 mg PO Q8H muscle spasm #30 tabs 05/15/24 ondansetron 4 mg disintegrating 4 mg PO Q8H PRN nausea and 05/15/24 tablet vomiting #90 tabs cholecalciferol (vitamin D3) 1,250 1,250 mcg PO QWEEK vit d 05/19/24 mcg (50,000 unit) capsule deficiency 3 months #13 caps erenumab-aooe 140 mg/mL 140 mg subcut ONCE 30 days #1 mL 05/19/24 subcutaneous auto-injector (Aimovig Autoinjector) albuterol sulfate 90 mcg/actuation 1 inh inhalation QID #8.5 grams 06/28/24 aerosol inhaler prednisone 20 mg tablet 20 mg PO DAILY 7 days #7 tabs 06/28/24 Allergies Allergy/AdvReac Type Severity Reaction Status Date / Time Penicillins [PCN] Allergy Severe Anaphylaxis Verified 08/08/24 10:48 walnut Allergy Severe Anaphylaxis Verified 08/08/24 10:48 blueberry Allergy Mild Hives Verified 08/08/24 10:48 Review of Systems Review of Systems: Positive episode of chest pain and palpitation Yes all other systems are reviewed and are negative [facility] Past Medical History Attestation statement: The following information was validated with the patient. Medical History Anxiety and depression Cervicalgia Migraine with aura Alopecia Surgical History History of YAG laser capsulotomy of lens Family History Family History Mother Ovarian cancer Hypertension Hypercholesteremia Father Asthma Alcoholism Liver disease Sister Asthma Depression Anemia Osteoporosis Other Mental health disorder Social History Social History Housing: House Alcohol intake: never Patient Tobacco Use Status: Never used Tobacco Tobacco use type: Cigarette e-Cigarette/Vaping Use: Never Used Second Hand Smoke Exposure: No Advance Directives: No Advance Directives Information Provided: Yes service: No Current occupational status: employed Current occupation: Dental Current occupational exposures/hazards: No Cognitive needs: No Hearing needs: No Vision needs: Yes Physical Exam Vital Signs: Vital Signs: Last Vital Signs Temp 98.2 F 08/08/24 15:32 Pulse 71 08/08/24 15:32 Resp 14 08/08/24 15:32 BP 108/71 08/08/24 15:32 Pulse Ox 99 08/08/24 15:32 O2 Del Method Room Air 08/08/24 15:32 BMI result Body Mass Index 23.2 Appearance: Alert. Oriented X3. No acute distress. Eyes: Pupils equal, round and reactive to light. ENT: Pharynx normal. Neck: Normal inspection. Neck supple. No lymph nodes noted. No crepitus CVS: Normal heart rate and rhythm. Pulses normal. Normal S1 and S2 Respiratory: No respiratory distress. Breath sounds normal. No Wheezing. No rales Abdomen: Soft and nontender. No rigidity. No distention. good BS x4 Skin: Skin warm and dry. Normal skin color. Normal skin turgor. Extremities: No lower extremity edema. Neurovascular intact to all extremities. No Lacerations. No Rash Neuro: Oriented X 3. No motor deficit. No sensory deficit. Moving all extermities. No slurred speech Medical Decision Making Medical Decision Making [facility] Narrative: Well-appearing no acute distress. My interpretation of patient's EKG showed a sinus pattern heart rate is 70 AL QRS QTC normal no acute ST segment elevation my interpretation of patient's chest x-ray was grossly negative no pneumonia no pneumothorax no rib fractures. Patient well-appearing. Pain atypical for ACS. Troponin is negative. Patient has no significant risk factor in his 39 years old. Heart score is less than 3. Will get a 2nd set of troponin to verify again. Then have patient follow-up on an outpatient basis with Cardiology. More likely patient's symptoms related to anxiety. She has no risk factors for pulmonary emboli. Two sets of cardiac enzymes are negative. Will discharge patient home close follow-up on an outpatient basis. Differential Diagnosis Differential Diagnoses: The differential diagnosis associated with the presentation includes ACS, PE, pneumonia, pneumothorax, anxiety Admission/Observation Consideration of admission/observation: Escalation of care including admission/observation considered given negative workup a joint decision was made to discharge patient home no need to stay Lab Data [facility] Lab Attestation statement: I reviewed the patient's lab results. 08/08/24 11:04 08/08/24 11:04 Labs: Lab Results 08/08/24 08/08/24 08/08/24 Range/Units 11:04 11:07 14:12 WBC 5.5 (4.8-10.8) X10*3/uL RBC 4.76 (4.20-5.50) X10*6/uL Hgb 14.0 (12.0-16.0) g/dl Hct 41.3 (37.0-47.0) % MCV 86.8 (80.0-98.0) fL MCH 29.4 (27.0-33.0) pg MCHC 33.9 (31.0-35.0) g/dl RDW 13.0 (11.0-16.0) % Plt Count 233 (160-400) X10*3/uL MPV 9.6 (9.4-12.3) fL Immature Gran % (Auto) 0.4 (0.0-0.4) % Neut % (Auto) 44.2 L (45-73) % Lymph % (Auto) 42.8 H (20-40) % [place] % (Auto) 6.7 (2-11) % Eos % (Auto) 5.2 H (0-4) % Baso % (Auto) 0.7 (0-2) % Lymph # (Auto) 2.4 (1.2-4.9) X10*3/uL [place] # (Auto) 0.4 (0.1-1.2) X10*3/uL Eos # (Auto) 0.3 (0.0-0.4) X10*3/uL Baso # (Auto) 0.0 (0.0-0.2) X10*3/uL Abs Immat Gran (auto) 0.02 (0.00-0.03) X10*3/uL Absolute Neuts (auto) 2.5 (2.0-8.3) x10*3/uL Absolute Nucleated RBC 0.000 (0.0-0.012) X10*3/uL Nucleated RBC % (auto) 0.0 (0.0-0.2) /100WBC Sodium 139 (135-145) mmol/L Potassium 3.6 (3.3-5.1) mmol/L Chloride 107 (96-108) mmol/L Carbon Dioxide 24 (22-29) mmol/L Anion Gap 12 (12-20) BUN 16 (9-16) mg/dL Creatinine 0.75 (0.5-1.4) mg/dL Estim Creat Clear Calc 70.9 Estimated GFR > 60 Random Glucose 91 (60-115) mg/dL Calcium 9.0 D (8.4-10.2) mg/dL Total Bilirubin 0.6 (0.0-1.0) mg/dL AST 18 (5-31) U/L ALT 12 (0-31) U/L Alkaline Phosphatase 81 (39-117) U/L Troponin I High Sens < 2.7 < 2.7 (<3.5-17.0) ng/L Total Protein 7.5 (6.5-8.0) g/dL Albumin 4.3 (3.5-5.0) g/dL Urine Test NEGATIVE (NEGATIVE) Independent Interpretation I performed an independent interpretation of an: EKG ( my interpretation patient's EKG as above) and Plain X-Ray ( chest x-ray negative no pneumonia no pneumothorax) Radiology Impression Discussion of test interpretation with radiology: I have reviewed the radiologist's reading. External Record Review External record reviewed: Inpatient record Discharge Plan Discharge Clinical Impression: Chest pain Patient Disposition: Home, Self-Care Instructions: Chest Pain (ED) Prescriptions: No Action pyridoxine (vitamin B6) 100 mg tablet 100 mg PO DAILY 90 Days Qty: 90 2RF topiramate 25 mg tablet 25 - 50 mg PO BEDTIME 30 Days Qty: 60 3RF Aimovig Autoinjector 140 mg/mL auto-injector 140 mg subcut ONCE 30 Days Qty: 1 6RF cholecalciferol (vitamin D3) 1,250 mcg (50,000 unit) capsule 1,250 mcg PO QWEEK 90 Days Qty: 13 0RF albuterol sulfate [Ventolin HFA] 90 mcg/actuation HFA aerosol inhaler 2 puff inhalation Q6H PRN (Reason: shortness of breath or wheezing) Qty: 8.5 0RF Rx Instructions: May substitute for medication approved by insurance acetaminophen [Tylenol Extra Strength] 500 mg tablet 500 mg PO Q6H PRN (Reason: pain) Qty: 30 0RF lidocaine 5 % adhesive patch,medicated 1 patch topical DAILY Qty: 30 0RF Rx Instructions: leave on most painful area for up to 12 hrs albuterol sulfate 90 mcg/actuation HFA aerosol inhaler 1 inh inhalation QID Qty: 8.5 0RF prednisone 20 mg tablet 20 mg PO DAILY 7 Days Qty: 7 0RF celecoxib [Celebrex] 200 mg capsule 200 mg PO BID 14 Days Qty: 28 0RF riboflavin (vitamin B2) 400 mg tablet 400 mg PO DAILY 30 Days Qty: 30 6RF naratriptan 2.5 mg tablet See Rx Instructions PO .COMPLEX PRN (Reason: migraine headache) 30 Days Qty: 12 6RF Rx Instructions: take 1/2 - 1 tab at onset of headache; if no relief may repeat 1 tab after at least 4 hrs; max = 2 tabs/24 hrs orally PRN; cyclobenzaprine 10 mg tablet 10 mg PO Q8H Qty: 30 1RF albuterol sulfate 90 mcg/actuation HFA aerosol inhaler 1 puff inhalation QID Qty: 8.5 0RF albuterol sulfate 0.63 mg/3 mL solution for nebulization 0.63 mg inhalation QID PRN (Reason: shortness of breath or wheezing) Qty: 75 0RF citalopram 10 mg tablet 10 mg PO DAILY Qty: 90 1RF ondansetron 4 mg tablet,disintegrating 4 mg PO Q8H PRN (Reason: nausea and vomiting) Qty: 90 1RF Referrals: Khalif Eddy MD [Physician] - 08/12/24 Print Language: Scottish
[2024-08-08 14:57] LABS: Troponin-I High Sensitivity < 2.7 ng/L (<3.5-17.0)
[2024-08-08 15:32] VITALS: BP 108/71; PULSE 71; RESP 14; TEMP 36.8; O2SAT 99
[2024-08-08 16:33] VITALS: BP 108/71; PULSE 71; RESP 14; TEMP 36.8; O2SAT 99
== END 2024-08-08 16:37 | disposition home or self-care (01) ==
PROVIDERS: Emergency Provider Emergency Medicine Emergency Medical Services; PCP Internal Medicine
DX: R07.89 Other chest pain (principal); F43.9 Reaction to severe stress, unspecified; Z79.899 Other long term (current) drug therapy
CPT/HCPCS: 36415; 71046; 80053; 81025; 84484; 85025; 93005; 99283; 99285

== ENCOUNTER → 2024-08-08 10:36 | Outpatient (BNV) | payer OTHER, SELFPAY | PROVIDERS: Emergency Provider Emergency Medicine Emergency Medical Services; PCP Internal Medicine; Visit Provider Internal Medicine | DX: R07.9 Chest pain, unspecified (principal) | CPT/HCPCS: 93010 ==

== ENCOUNTER → 2024-08-08 10:49 | Outpatient (BNV) | payer OTHER, SELFPAY | PROVIDERS: PCP Internal Medicine; Visit Provider Radiology Diagnostic Radiology | DX: R07.9 Chest pain, unspecified (principal) | CPT/HCPCS: 71046 ==

== ENCOUNTER 2024-08-29 14:43 | Outpatient (AMB) | payer OTHER, SELFPAY ==
[2024-08-29 14:57] VITALS: BP 108/62; PULSE 76; BMI 23.9
--- NOTE | 2024-08-29 14:57 | MHC.OFFVIS ---
Vital Signs 08/29/24 14:57 Height 5 ft Weight 122 lb 2.177 oz BMI 23.9 BP 108/62 Blood Pressure Location Rt brachial Position Sitting Pulse 76 Pulse Source Pulse Oximeter Intake Visit [place]asons[place] [facility] [place] Corrugator Machine Operator Required: No Retirement Village Manager: Retirement Village Manager Present Allergies Penicillins [PCN] Allergy (Severe, Verified 08/29/24 14:59) Anaphylaxis walnut Allergy (Severe, Verified 08/29/24 14:59) Anaphylaxis blueberry Allergy (Mild, Verified 08/29/24 14:59) Hives Medication List - Last Reconciled 08/29/24 by Maco Wesley NP acetaminophen (Tylenol Extra Strength) 500 mg PO Q6H PRN albuterol sulfate 90 mcg/actuation 1 inh inhalation QID albuterol sulfate 0.63 mg (3 mL) inhalation QID PRN celecoxib (Celebrex) 200 mg PO BID 2 weeks cholecalciferol (vitamin D3) 1,250 mcg PO QWEEK 3 months citalopram 10 mg PO DAILY cyclobenzaprine 10 mg PO Q8H erenumab-aooe (Aimovig Autoinjector) 140 mg subcut ONCE 30 days lidocaine 5% 1 patch topical DAILY naratriptan take 1/2 - 1 tab at onset of headache; if no relief may repeat 1 tab after at least 4 hrs; max = 2 tabs/24 hrs orally PRN; 30 days ondansetron 4 mg PO Q8H PRN prednisone 20 mg PO DAILY 7 days pyridoxine (vitamin B6) 100 mg PO DAILY 90 days riboflavin (vitamin B2) 400 mg PO DAILY 30 days topiramate 25 - 50 mg (1 - 2 x 25 mg) PO BEDTIME 30 days HPI Comments Details: This is a 39-year-old female patient presenting for a hospital discharge follow-up visit. Patient was referred to the office for evaluation of chest pain and palpitations for which she had presented to the emergency room. The patient notes that the episode occurred during a particularly stressful day. Emergency workup was reportedly negative. Today, the patient reports feeling well overall. However, since ER visit, patient has experienced intermittent episodes of palpitations which can occur both with and without exertion. These episodes typically last couple of sec. she denies any exertional chest pain, shortness of breath, dizziness, fatigue, orthopnea, PND, leg edema, presyncope, or syncope. Patient has no known history of coronary artery disease, ischemic heart disease, or cardiomyopathy. [facility] Medical History Anxiety and depression Cervicalgia Migraine with aura Alopecia Surgical History History of YAG laser capsulotomy of lens Family History Mother Ovarian cancer Hypertension Hypercholesteremia Father Asthma Alcoholism Liver disease Sister Asthma Depression Anemia Osteoporosis Other Mental health disorder Social History Housing: House Alcohol intake: never Patient Tobacco Use Status: Never used Tobacco Tobacco use type: Cigarette e-Cigarette/Vaping Use: Never Used Second Hand Smoke Exposure: No service: No Current occupational status: employed Current occupation: Dental Current occupational exposures/hazards: No Cognitive needs: No Hearing needs: No Vision needs: Yes Review of Systems ENT Reports dizziness Card Denies chest pain, Denies chest pain at rest, Denies chest pain with activity, Denies rapid heart rate, Denies pedal edema, Denies edema, Denies leg edema, Denies lightheadedness, Denies palpitations, Denies dyspnea, Denies dyspnea on exertion and Denies orthopnea Resp Denies cough, Denies dyspnea and Denies dyspnea on exertion GI Denies hematochezia and Denies change in stool character Musc Denies abnormal gait, Reports limited range of motion, Reports muscle cramps, Denies muscle weakness, Denies numbness, Denies radiating pain into limb, Denies stiffness and Denies tingling Neuro Denies abnormal gait, Reports dizziness, Denies numbness and Denies tingling Endo Denies palpitations Physical Exam Vital Signs: Last Vital Signs Pulse 76 08/29/24 14:57 BP 108/62 08/29/24 14:57 BMI result Body Mass Index 23.9 Const General: cooperative, healthy appearing, comfortable and no acute distress Orientation/consciousness: patient oriented x3 HEENT Head: Yes normal to inspection Neck Neck: Yes normal visual inspection, Yes trachea midline and Yes supple Chest Chest palpation & inspection: normal inspection of the chest Resp Effort & Inspection: normal respiratory effort Auscultation: clear to auscultation bilaterally, no crackles, no rales, no rhonchi and no wheezes Cardio Jugular venous distension: no JVD Palpation: normal PMI Rate: regular rate Rhythm: regular rhythm Heart sounds: S1 normal heart sound present, S2 normal heart sound present, no click, no gallops, no murmurs and no rubs Peripheral pulses: Peripheral pulses 2+ throughout GI Inspection: Yes normal to inspection Palpation (GI): Soft to palpation Auscultation: normal bowel sounds Skin General skin exam: no rashes or lesions noted Neuro General: patient oriented x3 Extrem General: Yes normal to inspection, No no pedal edema and No calf tenderness Psych Appearance: grossly normal Mental Status: mental status grossly normal Speech and movement: Normal speech and movement present Assessment & Plan Assessment & Plan (1) Palpitation: Code(s): R00.2 - Palpitations Category: Medical (2) Hospital discharge follow-up: Code(s): Z09 - Encounter for follow-up examination after completed treatment for conditions other than malignant neoplasm Plan Patient's emergency room workup was unremarkable and her current symptoms are atypical, appearing more consistent with stress related etiology rather than cardiac origin. However, given her reports of ongoing palpitations both exertional and nonexertional, a cardiac etiology must be ruled out. We will proceed with a treadmill stress test to assess for ischemia; echocardiogram to evaluate for LV function, wall motion, and valvular structure and function; and a 3 day Holter monitor to assess for any underlying arrhythmias causing the palpitations. Patient in agreement with this plan. Advised heart healthy diet, regular exercise, avoiding caffeinated beverages and stimulants, and emphasized on stress medication strategies. We will follow up in the office after completion of the test. In the interim, patient will call the office with any concerns or change in symptoms. Advised patient to seek ER care in case of exertional chest pain not resolved with rest. This note was generated using voice recognition software. While every effort has been made to ensure accuracy and proper retail greeting card merchandiser, there may be occasional errors that could affect the content or meaning of the described symptoms. Orders: Orders CA echo transthoracic complete Today R00.2 - Palpitations ECG 3 day holter monitor Today R00.2 - Palpitations CA stress test Today R07.9 - Chest pain, unspecified Coding Level of Care Code New Pt Level 4 (58880) Complex EM visit Add On G2211 Diagnoses Palpitation R00.2 Hospital discharge follow-up Z09 Time Spent (min) 31 Comment Time spent in reviewing the chart, test results, assessment, counseling and documentation.
--- OUTSIDE RECORDS SUMMARY | 2024-08-29 15:26 | XMS_ITS | Encounter Summary ---
Author Organization [facility] Address [address] [place] [address] Care Team Providers Care Helmet Hat Brim Cutter Name Role Phone Candelaria Mejia MD Unavailable Unavailable Slava Soto Primary Care Provider Unav ailable Bill Jeffrey MD Primary Care Provider [phone] Kellee Caceres MD Primary Care Provider Unavail able Encounter Details Date Type Department Care Team Description 01/17/2018 Pt. Non Urgent Medical Question Chiropractic - [place] [address] [place] [address] Toby Calderón D.C. Social History Tobacco Use [...] on filedocumented in this encounter Care Teams Helmet Hat Brim Cutter Relationship Specialty Start Date End Date Slava Soto PCP - General Internal Medicine 12/12/17 06/03/18 Bill Jeffrey MD [address] [place] [id number] PCP - General Internal Medicine 06/04/18 06/30/18 Kellee Caceres MD [address] [place] [id number] PCP - General Internal Medicine 07/01/18 Candelaria Mejia MD Internal Medicine 01/28/14 documented as of this encounter
--- OUTSIDE RECORDS SUMMARY | 2024-08-29 15:26 | XMS_ITS | Encounter Summary ---
Author Organization [facility] Address [address] [place] [address] Care Team Providers Care Silviculturist Name Role Phone Candelaria Mejia MD Unavailable Unavailable Candelaria Mejia MD Primary Care Provider Unava ilable Christian Riley MD Primary Care Provider Unavaila Melanie Blackman MD Primary Care Provider [phone] Bill Jeffrey MD Primary Care Provider [phone] Slava Soto Primary Care Provider Unav ailable Bill Jeffrey MD Primary Care Provider [phone] Kellee Caceres MD Primary Care Provider Unavail able Encounter Details Date Type Department Care Team Description 09/02/2014 Transfer Records Medical Records [address] [place] [id number] Abstract, Provider Social History Tobacco Use Types [...] on filedocumented in this encounter Care Teams Silviculturist Relationship Specialty Start Date End Date Candelaria Mejia MD PCP - General Internal Medicine 03/19/14 02/16/15 Christian Riley MD PCP - General Internal Medicine 02/17/15 06/20/15 Melanie Lewis MD [address] [place] [address] PCP - General Internal Medicine 06/21/15 10/24/16 Bill Jeffrey MD [address] [place] [id number] PCP - General Internal Medicine 10/25/16 12/11/17 Slava Soto [address] [place] [id number] PCP - General Internal Medicine 12/12/17 06/03/18 Bill Jeffrey MD [address] [place] [id number] PCP - General Internal Medicine 06/04/18 06/30/18 Kellee Caceres MD [address] [place] [id number] PCP - General Internal Medicine 07/01/18 Candelaria Mejia MD Internal Medicine 01/28/14 documented as of this encounter
--- OUTSIDE RECORDS SUMMARY | 2024-08-29 15:26 | XMS_ITS | Encounter Summary ---
Author Organization [facility] Address [address] [place] [address] Care Team Providers Care Supervisor Customer Complaint Service Name Role Phone Candelaria Mejia MD Unavailable Unavailable Kellee Caceres MD Primary Care Provider Unavail able Encounter Details Date Type Department Care Team Description 08/08/2018 Release of Information Medical Records [address] [place] [id number] Abstract, Provider Social History Tobacco Use Types [...] on filedocumented in this encounter Care Teams Supervisor Customer Complaint Service Relationship Specialty Start Date End Date Kellee Caceres MD PCP - General Internal Medicine 07/01/18 Candelaria Mejia MD Internal Medicine 01/28/14 documented as of this encounter
== END 2024-08-29 15:25 | disposition home or self-care (01) ==
LOC: HO.HCS 14:44
PROVIDERS: PCP Internal Medicine
DX: R00.2 Palpitations (principal); Z09 Encounter for follow-up examination after completed treatment for conditions other than malignant neoplasm
CPT/HCPCS: 99204; G2211

== ENCOUNTER → 2024-08-29 14:43 | Outpatient (BNVA) | payer OTHER, SELFPAY | PROVIDERS: PCP Internal Medicine | DX: Z09 Encounter for follow-up examination after completed treatment for conditions other than malignant neoplasm (principal); R00.2 Palpitations | CPT/HCPCS: 99202 ==

== ENCOUNTER 2024-09-04 08:19 | Outpatient (AMB) | payer OTHER, SELFPAY ==
--- NOTE | 2024-09-04 08:24 | MHC.OFFVIS ---
Intake Visit Reasons: IUD check Home Health Rn: Home Health Rn Present ([facility]) Accompanied by: Self / Same As Patient Allergies Penicillins [PCN] Allergy (Severe, Verified 09/04/24 08:24) Anaphylaxis walnut Allergy (Severe, Verified 09/04/24 08:24) Anaphylaxis blueberry Allergy (Mild, Verified 09/04/24 08:24) Hives HPI Comments Details: The patient is presenting for IUD check after 1 st period following IUD insertion. The patient has no complaints periods are normal, not painful, and flow is normal. [facility] Medical History Anxiety and depression Cervicalgia Migraine with aura Alopecia Surgical History History of YAG laser capsulotomy of lens Family History Mother Ovarian cancer Hypertension Hypercholesteremia Father Asthma Alcoholism Liver disease Sister Asthma Depression Anemia Osteoporosis Other Mental health disorder Social History Housing: House Alcohol intake: never Patient Tobacco Use Status: Never used Tobacco Tobacco use type: Cigarette e-Cigarette/Vaping Use: Never Used Second Hand Smoke Exposure: No service: No Current occupational status: employed Current occupation: Dental Current occupational exposures/hazards: No Cognitive needs: No Hearing needs: No Vision needs: Yes Review of Systems Const All systems reviewed & are unremarkable except as noted in HPI and below Physical Exam General: Yes no CVA tenderness External Female Exam: normal external appearance and normal appearance of the urethra Speculum Exam - Vagina: normal appearance of the vagina, normal palpation, no lesions and no masses Speculum Exam - Cervix: normal appearance of the cervix, normal palpation, no lesions, no masses, nontender and Other cervical findings present (IUD string seen) Bimanual exam- vagina & uterus: normal bimanual exam, normal palpation, uterine size normal, normal palpation, uterine shape normal, No Cervical tenderness present and non-tender Bimanual Exam- Adnexa, other: normal adnexae Back/Spine/Pelvis Back: no CVA tenderness Results AMB Test Urine AMB Test Urine Negative Last Edit by Liza Greenfield CMA on 09/04/24 08:28 Results Reviewed Results Reviewed: Laboratory Last Values [facility]st Clinic Negative 09/04/24 08:26 Assessment & Plan Assessment & Plan (1) IUD check up: Code(s): Z30.431 - Encounter for routine checking of intrauterine contraceptive device Category: Medical Plan: UPT done in the office was negative. Discussed with the patient the finding on physical exam, IUD string in place, the patient was reassured. Instructions given to patient to call in case of temperature above 100.4, severe cramping/pelvic pain, abnormal discharge or abnormal uterine bleeding or if she misses her menstrual cycle. Otherwise follow-up at her annual exam appointment. All questions answered, the patient verbalized understanding. Orders: Orders AMB HCG Urine Test Today Z32.02 - Encounter for test, result negative Coding Level of Care Code Est Pt Level 3 (65939) Diagnoses IUD check up Z30.431
== END 2024-09-04 08:41 | disposition home or self-care (01) ==
LOC: HO.HWS 08:19
PROVIDERS: PCP Internal Medicine; Visit Provider Obstetrics & Gynecology
DX: Z30.431 Encounter for routine checking of intrauterine contraceptive device (principal); Z32.02 Encounter for pregnancy test, result negative
CPT/HCPCS: 99213

== ENCOUNTER → 2024-09-04 08:19 | Outpatient (BNVA) | payer OTHER, SELFPAY | PROVIDERS: PCP Internal Medicine; Visit Provider Obstetrics & Gynecology | DX: Z30.431 Encounter for routine checking of intrauterine contraceptive device (principal) | CPT/HCPCS: 81025; 99212 ==

== ENCOUNTER 2024-09-11 09:37 | Outpatient (AMB) | payer OTHER, SELFPAY ==
--- NOTE | 2024-09-11 09:45 | MHC.PC.OV ---
Vital Signs 09/11/24 09:46 Height 5 ft Weight 125 lb BMI 24.4 BP 110/66 Blood Pressure Location Lt brachial Position Sitting Pulse 76 Pulse Source Pulse Oximeter Temp 97.1 F Temp Source Temporal Artery Scan Pulse Oximetry (%) 99 Oxygen Delivery Method Room Air Intake Visit Reasons: f/u back pain Intake Note: Patient is here to follow up on Back pain. Orchestra Teacher Required: No Roofing Machine Operator: Not Required per policy Accompanied by: Self / Same As Patient Allergies Penicillins [PCN] Allergy (Severe, Verified 09/11/24 10:18) Anaphylaxis walnut Allergy (Severe, Verified 09/11/24 10:18) Anaphylaxis blueberry Allergy (Mild, Verified 09/11/24 10:18) Hives Medication List - Last Reconciled 09/11/24 by David Marin MD acetaminophen (Tylenol Extra Strength) 500 mg PO Q6H PRN albuterol sulfate 90 mcg/actuation 1 inh inhalation QID albuterol sulfate 0.63 mg (3 mL) inhalation QID PRN celecoxib (Celebrex) 200 mg PO BID 2 weeks cholecalciferol (vitamin D3) 1,250 mcg PO QWEEK 3 months citalopram 10 mg PO DAILY cyclobenzaprine 10 mg PO Q8H erenumab-aooe (Aimovig Autoinjector) 140 mg subcut ONCE 30 days levonorgestrel (Mirena) intrauterine lidocaine 5% 1 patch topical DAILY naratriptan take 1/2 - 1 tab at onset of headache; if no relief may repeat 1 tab after at least 4 hrs; max = 2 tabs/24 hrs orally PRN; 30 days ondansetron 4 mg PO Q8H PRN prednisone 20 mg PO DAILY 7 days pyridoxine (vitamin B6) 100 mg PO DAILY 90 days riboflavin (vitamin B2) 400 mg PO DAILY 30 days topiramate 25 - 50 mg (1 - 2 x 25 mg) PO BEDTIME 30 days Tobacco use date assessed: 09/11/24 Dental Screening Dental Screen Date: 05/15/24 [facility] Medical History Anxiety and depression Cervicalgia Migraine with aura Alopecia Surgical History History of YAG laser capsulotomy of lens Family History Mother Ovarian cancer Hypertension Hypercholesteremia Father Asthma Alcoholism Liver disease Sister Asthma Depression Anemia Osteoporosis Other Mental health disorder Social History Housing: House Alcohol intake: never Patient Tobacco Use Status: Never used Tobacco Tobacco use type: Cigarette e-Cigarette/Vaping Use: Never Used Second Hand Smoke Exposure: No service: No Current occupational status: employed Current occupation: Dental Current occupational exposures/hazards: No Cognitive needs: No Hearing needs: No Vision needs: Yes Questionnaire PHQ-9 Over the last 2 weeks, how often have you been bothered by any of the following problems? 1. Little interest or pleasure in doing things: not at all 2. Feeling down, depressed, or hopeless: several days 3. Trouble falling or staying asleep, or sleeping too much: not at all 4. Feeling tired or having little energy: several days 5. Poor appetite or overeating: not at all 6. Feeling bad about yourself - or that you are a failure or have let yourself or your family down: not at all 7. Trouble concentrating on things, such as reading the newspaper or watching television: not at all 8. Moving or speaking so slowly that other people could have noticed. Or the opposite - being so fidgety or restless that you have been moving around a lot more than usual: not at all 9. Thoughts that you would be better off or of hurting yourself in some way: not at all Total score: 2 Depression Screening Interpretation: Positive Depression Screening Done: Yes Source: Developed by Drs. Alexei Serna, Sirisha Lara, Luis Jennings and colleagues, with an educational alf from [employer]. Thrive Questionnaire Date Thrive assessed: 09/09/24 I am a: Patient What is your living situation today?: I have a steady place to live Within the past 12 months, did the food you bought not last and you didn't have the money to get more?: I choose not to answer this question Within the past 12 months, did you worry whether your food would run out before you got money to buy more?: Never true Do you have trouble paying for medicines?: No Do you have trouble getting transportation to medical appointments?: No Do you have trouble paying your heating and electricity bill?: No Do you have trouble taking care of your child, family member or friend?: No Do you have trouble with day-to-day activities such as bathing, preparing meals, shopping, managing finances, etc.?: No Are you currently unemployed and looking for a job?: No Are you interested in more education?: No Please select the resources that you would like help with: None Currently or been in a relationship where the following occur: No concerns reported THRIVE Score: 0 AUDIT C Alcohol Use Questionnaire (AUDIT-C) 1. How often do you have a drink containing alcohol?: Monthly or less Total Score: 1 JYOTHI-7 AMB Questionnaire JYOTHI-7 Date JYOTHI - 7 assessed: 05/15/24 Feeling nervous, anxious, or on edge: 1 = Several days Not being able to stop or control worryin = Several days Worrying too much about different things: 1 = Several days Trouble relaxin = Several days Being so restless that it is hard to sit still: 0 = Not at all Becoming easily annoyed or irritable: 1 = Several days Feeling afraid as if something awful might happen: 0 = Not at all Total JYOTHI-7 score (0-4 normal; 5-9 mild; 10-14 moderate; 15-21 severe): 5 Source: Developed by Drs. Alexei Serna, Sirisha Lara, Luis Jennings and colleagues, with an educational alf from [employer]. Physical exam (Primary Care) Vital Signs: Last Vital Signs Temp 97.1 F 09/11/24 09:46 Pulse 76 09/11/24 09:46 BP 110/66 09/11/24 09:46 Pulse Ox 99 09/11/24 09:46 Oxygen Delivery Method Room Air 09/11/24 09:46 BMI result Body Mass Index 24.4 Tobacco/Smoking Status: Tobacco use Status Tobacco use date assessed 09/11/24 09/11/24 09:50 Patient Tobacco Use Status Never used Tobacco 09/11/24 09:50 Tobacco use type Cigarette 09/11/24 09:50 e-Cigarette/Vaping Use Never Used 05/08/25 09:50 PHQ-9: PHQ-9 Score PHQ-9: Total score 2 09/11/24 09:50 Depression Screening Interpretation: Positive Thrive Assessment: Date of Thrive Assessment Date Thrive assessed 09/09/24 09/11/24 09:50 Currently or been in a relationship where the following occur: No concerns reported Coding Level of Care Code Est Pt Level 4 (22416) Complex EM visit Add On G2211 Diagnoses Back pain M54.9 Assessment & Plan Assessment & Plan (1) Back pain: Code(s): M54.9 - Dorsalgia, unspecified Plan: Patient was advised to decrease the amount of medications as her symptoms are improving. She has agreed to do the same. Plan History of Present Illness The patient is a 39-year-old female presenting with low back pain for a follow-up visit. The back pain has improved following physical therapy participation, although she has not been able to undergo chiropractic sessions due to scheduling constraints. The patient is currently taking Celebrex and another unspecified medication and finds them beneficial in managing the pain. Furthermore, she reports a history of headaches, which have improved. The headache medications are taken as needed. 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 - Stress: Stress levels have reduced since leaving the former employment. - Smoking: Denied smoking. Review of Systems - Musculoskeletal: Reports persistent low back pain. - Neurological: Reports headaches, though improved; Denies regular use of headache medications. - General: Reports improvement in overall pain levels; Denies smoking. Physical Exam General: Cooperative and healthy appearing Nutritional Appearance: Well nourished Orientation/consciousness: Patient oriented x3 Limitations: No limitations Head: Normal to inspection General: Appearance normal, both eyes and all related structures Neck: Normal visual inspection Chest: Normal palpation of entire chest wall Respiratory: N ormal respiratory effort Neurology: Patient oriented x3, headaches improved Results - Tests and Diagnostics: Reports a mammogram was completed with normal results. Plan 1. Low Back Pain - Continue Celebrex and the other unspecified medication as needed. - Advised on continuation of physical therapy exercises. - Encourage scheduling health care attorney. 2. Headaches - Use headache medication prn. - Monitor symptoms' frequency and severity. Discussion Notes In our discussion, I emphasized the improvement in the patient's low back pain since the physical therapy. The patient is advised to use Celebrex and the other pain medication as needed to minimize dependency. I encourage continuing with physical therapy and attempting to schedule chiropractic sessions. The patient mentioned her recent mammogram returned normal and comments that her headaches improved. I reiterated using headache medication sparingly. We discussed her new employment status and reduced stress levels, which have likely contributed to her overall health improvement. Patient Instructions - Take Celebrex and other pain medication only when needed. - Continue physical therapy exercises at home. - Attempt to schedule health care attorney when possible. - Monitor headaches and use medication as necessary. - Return for a follow-up in six months. Medications: Refilled albuterol sulfate 0.63 mg (3 mL) inhalation QID PRN 75 mL 0RF shortness of breath or wheezing
[2024-09-11 09:46] VITALS: BP 110/66; PULSE 76; TEMP 36.2; O2SAT 99; BMI 24.4
== END 2024-09-11 10:43 | disposition home or self-care (01) ==
LOC: HO.HMCH 09:38
PROVIDERS: PCP Internal Medicine; Visit Provider Internal Medicine
DX: M54.9 Dorsalgia, unspecified (principal)

== ENCOUNTER → 2024-09-11 09:37 | Outpatient (BNVA) | payer OTHER, SELFPAY | PROVIDERS: PCP Internal Medicine; Visit Provider Internal Medicine | DX: M54.9 Dorsalgia, unspecified (principal) | CPT/HCPCS: 99212 ==

== ENCOUNTER 2025-01-02 08:25 | Outpatient (AMB) | payer OTHER, SELFPAY ==
[2025-01-02 08:34] VITALS: BP 130/70; PULSE 68; O2SAT 98; BMI 25.6
--- NOTE | 2025-01-02 08:34 | A.OFFVIS_ITS ---
Vital Signs 01/02/25 08:34 Height 5 ft Weight 131 lb BMI 25.6 BP 130/70 Blood Pressure Location Rt brachial Position Sitting Pulse 68 Pulse Source Pulse Oximeter Pulse Oximetry (%) 98 Oxygen Delivery Method Room Air Intake Visit Reasons: 6 month F/U Intake Note: Patient presents for f/u. More headaches and dizziness. Headaches are getting worse. Would like MRI results. 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 Accompanied by: Self / Same As Patient Allergies Penicillins (PCN) Allergy (Severe, Verified 01/02/25 08:42) Anaphylaxis walnut Allergy (Severe, Verified 01/02/25 08:42) Anaphylaxis blueberry Allergy (Mild, Verified 01/02/25 08:42) Hives Medication List - Last Reconciled 01/02/25 by SHAHBAZ Allen acetaminophen (Tylenol Extra Strength) 500 mg PO Q6H PRN albuterol sulfate 90 mcg/actuation 1 inh inhalation QID albuterol sulfate 0.63 mg (3 mL) inhalation QID PRN celecoxib (Celebrex) 200 mg PO BID 2 weeks cholecalciferol (vitamin D3) 1,250 mcg PO QWEEK 3 months citalopram 10 mg PO DAILY cyclobenzaprine 10 mg PO Q8H erenumab-aooe (Aimovig Autoinjector) 140 mg subcut ONCE 30 days levonorgestrel (Mirena) intrauterine lidocaine 5% 1 patch topical DAILY naratriptan take 1/2 - 1 tab at onset of headache; if no relief may repeat 1 tab after at least 4 hrs; max = 2 tabs/24 hrs orally PRN; 30 days ondansetron 4 mg PO Q8H PRN prednisone 20 mg PO DAILY 7 days pyridoxine (vitamin B6) 100 mg PO DAILY 90 days riboflavin (vitamin B2) 400 mg PO DAILY 30 days topiramate 25 - 50 mg (1 - 2 x 25 mg) PO BEDTIME 30 days HPI Comments Details: 39-yr-old female presents for f/u visit for migraine and cervicalgia. Pt accompanied by family. She reports she underwent right eye lasik surgery in Jun- since she has felt a slight decrease in her migarine intensity/attacks. Pt reports that she had been doing ok, using her blue light glasses, compression tx, vitamins (magnesium w/ potassium at night about 3 times per week), princess energy juice. Also taking red beets, and a kidney map drafter supplement- she notes she has not had any kidney stones. She feels the b12 makes her tired. She notes that if she does not take the princess juice, she will be very tired, no energy, falling asleep. Typically sleeps 6-7 hours per night, sometimes 8 hours- depending on her children's schedule. But sometimes cannot sleep- tosses and turns. But then falls asleep when inactive- watching a movie, doing paperwork. This week she has had a headache x's 3 days. Earlier this week, she had a more bothersome migraine. She has noticed increased neck tightness when she had the more bothersome migraine. 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 She is trying to remember to take her as needed OTC tx's- though they are not fully effective. Pt also notes her younger sister, age 36, had a stroke in which initial s/s was migraine headache- she does have residual left sided weakness. Pt is unsure of stroke etiology has been identified. Denies other family h/o stroke. Gorge yoon family h/o HTN, DM. She has been discharged from [facility]. Baseline headache characteristics: Prodrome symptoms: feels edgey and chest tightness- almost like anxiety Aura: shooting stars Severe 8-9/10, at worst 10/10, Throbbing pain, Location varies- can be in back of head, in shoulders, in top of head, in forehead. A/w photophobia, phonophobia, osmophobia, allodynia, N/V, fatigue, brain fog, difficulty sleeping, left wrist tingling and coldness, watery eyes. [facility] Medical History (Updated 01/02/25 @ 09:13 by SHAHBAZ Allen) Anxiety and depression Cervicalgia Migraine with aura Alopecia Surgical History (Updated 01/02/25 @ 08:54 by SHAHBAZ Allen) History of YAG laser capsulotomy of lens Family History Mother Ovarian cancer Hypertension Hypercholesteremia Father Asthma Alcoholism Liver disease Sister Asthma Depression Anemia Osteoporosis Other Mental health disorder Social History Housing: House Alcohol intake: never Patient Tobacco Use Status: Never used Tobacco Tobacco use type: Cigarette e-Cigarette/Vaping Use: Never Used Second Hand Smoke Exposure: No service: No Current occupational status: employed Current occupation: Dental Current occupational exposures/hazards: No Cognitive needs: No Hearing needs: No Vision needs: Yes Physical Exam Vital Signs: Last Vital Signs Pulse 68 01/02/25 08:34 BP 130/70 01/02/25 08:34 Pulse Ox 98 01/02/25 08:34 Oxygen Delivery Method Room Air 01/02/25 08:34 BMI result Body Mass Index 25.6 Const General: cooperative and no acute distress Orientation/consciousness: patient oriented x3 Resp Effort & Inspection: normal respiratory effort and able to speak in complete sentences Neuro General: patient oriented x3 Cranial nerves: Yes CN's II-XII intact bilaterally (w/ mild left facial asymmetry- per pt, baseline.) Cognition (Neuro): normal cognition Psych Appearance: grossly normal Mental Status: mental status grossly normal Speech and movement: Normal speech and movement present Affect: normal affect Attitude: cooperative Assessment & Plan Assessment & Plan (1) Migraine with aura: Code(s): G43.109 - Migraine with aura, not intractable, without status migrainosus Category: Medical Qualifiers: Intractability: not intractable Status migrainosus presence: without status migrainosus Qualified Code(s): G43.109 - Migraine with aura, not intractable, without status migrainosus (2) Spondylosis, cervical: Code(s): M47.812 - Spondylosis without myelopathy or radiculopathy, cervical region Category: Medical (3) Cervicalgia: Code(s): M54.2 - Cervicalgia Category: Medical (4) Sleep difficulties: Code(s): G47.9 - Sleep disorder, unspecified Category: Medical (5) Snoring: Code(s): R06.83 - Snoring Category: Medical (6) Excessive daytime sleepiness: Code(s): G47.19 - Other hypersomnia Category: Medical Plan Poor sleep difficulties and excessive daytime sleepiness: * Patient is advised to undergo HST to assess for sleep apnea For cervicalgia w/ left radiculitis, and low back pain w/ fernanda sciatica s/s: * 09/25/2023 C-spine MRI w/o- Moderate multilevel degenerative spondyloarthropathy, mild to moderate spinal canal stenosis at C5-C6. Mild spinal canal stenosis at C3-C4. Moderate to severe neural foraminal stenoses at C3-C4 and C5-C6. * 10/19/2023 LUE/LLE EMG/NCS- unremarkable * Continue to monitor, if increases, consider referral back to physiatry. For overall headache management: Continue to optimize good self-care, including but not limited to maintaining a healthy diet, adequate fluid intake, adequate sleep, and engaging in regular physical activity. * Track headaches. * Continue blue light filtering glasses, green glasses, green light therapy.. 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 ? For acute headache treatment: Discontinue Naraatriptan 2.5mg ta- not tolerated and ineffective. Trial Ubrogepant (Ubrelvy) 100mg tab: * Take Ubrogepant 1/2 - 1 tab (50-100mg) at onset of headache. * You may repeat the dose in 2 hours. Max of 2 tabs (200mg) per 24 hours. * You may take Ubrogepant with OTC Tylenol 650mg q 4 hours, Ibuprofen (liquid gel) 600mg q 6 hours, or Naproxen (liquid gel) 440mg q 12 hrs as needed. * Do not take Ubrogepant with or within 5 days of taking Butalbital (Fioricet or Fiorinal). * Possible adverse effects of Ubrogepant include, but are not limited to, fatigue, nausea, dry mouth, constipation. * This medication likely will require an insurance prior authorization before you will be able to receive this from your pharmacy. ? * We will initiate the prior authorization process per your specific health insurance's requirements. ? * However, please note, that your health insurance belongs to you, and you may also need to communicate with your insurance company in order for the prior authorization request to be processed. ?it is possible that you will also need to speak to your insurance regarding requesting the prior authorization Previous acute migraine medication trials: Sumatriptan- caused irritability. Ibuprofen- causes GI upset. Naratriptan-ineffective and not tolerated Acute migraine medication contraindications: None at this time. ? For headache prevention medication: Discussed that preventative medications should be taken routinely as prescribed for best effect, it may take several weeks for full effect to take effect. * Continue Riboflavin 400mg qam * Continue Magnesium Powder- goal [id number] bedtime * Discontinue Aimovig 140mg sc q month-patient never started him migraines a bit better. * Previous migraine prevention medication trials: Amitriptyline- caused irritability/nausea. * Migraine prevention medication contraindications: BBs d/t symptomatic asthma dx, Topiramate d/t h/o kidney stones. ? F/u upon review of above and in clinic in 6 months or sooner prn. Orders: Orders RT home sleep study 01/02/25 G47.19 - Other hypersomnia, G47.9 - Sleep disorder, unspecified, R06.83 - Snoring Medications: New 2 ubrogepant (Ubrelvy) take at onset of migraine, may repeat in 2hrs (may take w/ Ibuprofen) 50 - 100 mg (0.5 - 1 x 100 mg) PO ONCE PRN 16 tabs 3RF migraine headache 30 days Coding Level of Care Code Est Pt Level 4 (41870) Diagnoses Migraine with aura and without status migrainosus, not intractable G43.109 Intractability: not intractable Status migrainosus presence: without status migrainosus Spondylosis, cervical M47.812 Cervicalgia M54.2 Sleep difficulties G47.9 Snoring R06.83 Excessive daytime sleepiness G47.19 Cadet Sleepiness Scale Questions Sitting and reading: high chance of dozing Watching TV: high chance of dozing Sitting inactive in a theater, movie etc.: high chance of dozing As a passenger in a car for an hour without break: high chance of dozing Lying down in the afternoon when circumstances permit: high chance of dozing Sitting and talking to someone: would never doze Sitting quietly after lunch without alcohol: high chance of dozing In a car, while stopped for a few minutes in the traffic: would never doze ESS < 10: normal, ESS > 12: pathologic: 18
== END 2025-01-02 09:26 | disposition home or self-care (01) ==
LOC: HO.HSMS 08:25
PROVIDERS: PCP Nurse Practitioner Family; Visit Provider Nurse Practitioner Family
DX: G43.109 Migraine with aura, not intractable, without status migrainosus (principal); M47.812 Spondylosis without myelopathy or radiculopathy, cervical region; M54.2 Cervicalgia; G47.9 Sleep disorder, unspecified; R06.83 Snoring; G47.19 Other hypersomnia
CPT/HCPCS: 99214

== ENCOUNTER → 2025-01-02 08:25 | Outpatient (BNVA) | payer OTHER, SELFPAY | PROVIDERS: PCP Nurse Practitioner Family; Visit Provider Nurse Practitioner Family | DX: G43.109 Migraine with aura, not intractable, without status migrainosus (principal); M54.2 Cervicalgia; M47.812 Spondylosis without myelopathy or radiculopathy, cervical region; G47.9 Sleep disorder, unspecified; R06.83 Snoring; G47.19 Other hypersomnia | CPT/HCPCS: 99212 ==

== ENCOUNTER 2025-04-23 11:37 | Outpatient (AMB) | payer OTHER, SELFPAY ==
--- NOTE | 2025-04-23 11:43 | A.OFFPC_ITS ---
Vital Signs 04/23/25 11:44 Height 5 ft Weight 127 lb 4 oz BMI 24.8 BP 100/60 Blood Pressure Location Lt brachial Position Sitting Pulse 60 Pulse Source Pulse Oximeter Temp 97.1 F Temp Source Temporal Artery Scan Pulse Oximetry (%) 98 Oxygen Delivery Method Room Air Intake Visit Reasons: 6 month f/u Valuation Manager Required: No Manager Of Data: Not Required per policy Accompanied by: Self / Same As Patient Allergies Penicillins (PCN) Allergy (Severe, Verified 04/24/25 13:20) Anaphylaxis walnut Allergy (Severe, Verified 04/24/25 13:20) Anaphylaxis blueberry Allergy (Mild, Verified 04/24/25 13:20) Hives Medication List - Last Reconciled 04/24/25 by David Marin MD albuterol sulfate 90 mcg/actuation 1 inh inhalation QID albuterol sulfate 0.63 mg (3 mL) inhalation QID PRN budesonide-formoterol 160-4.5 mcg/actuation (Symbicort) 2 puffs PO BID levonorgestrel (Mirena) intrauterine lidocaine 5% 1 patch topical DAILY naratriptan take 1/2 - 1 tab at onset of headache; if no relief may repeat 1 tab after at least 4 hrs; max = 2 tabs/24 hrs orally PRN; 30 days ondansetron 4 mg PO Q8H PRN pyridoxine (vitamin B6) 100 mg PO DAILY 90 days riboflavin (vitamin B2) 400 mg PO DAILY 30 days ubrogepant (Ubrelvy) 50 - 100 mg (0.5 - 1 x 100 mg) PO ONCE PRN 30 days Tobacco use date assessed: 04/23/25 Dental Screening Dental Screen Date: 05/15/24 HPI HPI Comments History of Present Illness Details History of Present Illness - The patient is a 40 year old female pr esenting for a follow-up visit and reports that her overall health has improved since quitting her job in August. - Migraines: She reports her migraines a re better. - She takes naratriptan as needed for he adaches and requires a refill for another migraine medication prescribed by her neurologist. - She is not taking topiramate faithfull y. - Mood: The patient reports persistent m ood swings but states her mental health is much better. - She has stopped taking her prescribed citalopram 10 mg and is instead taking [id number] supplements including multivitamins, ashwagandha, magnesium, and potassium. - Back Pain: Her back pain is ongoing bu t not as severe as it used to be. - She no longer takes Celebrex but uses cyclobenzaprine and lidocaine patches on a rare, as-needed basis. - Asthma: The patient reports she gets s ick most often during this time of year. - She uses an albuterol nebulizer more t gilbert the inhaler for asthma attacks, as she finds it works faster. - She needs refills for both the nebuliz er solution and a new inhaler. - She uses prednisone only for severe as thma flares not controlled by the nebulizer. - Gynecological History: The patient has a Mirena IUD, which was changed at this facility. - After an initial month and a half of s cattered bleeding, her period is now very light, if it occurs at all, and does not last more than a day. - Health Maintenance: She has a follow-u p mammogram scheduled in May due to a family history of breast cancer. - Her last blood work was in August and w as normal, including cholesterol levels. Social History - Employment: The patient quit her [employer] job in August and believes it was the main source of her health problems. - She now works in a dental office, whic h she finds to be less work, though it causes some postural pain. - Substance Use: Denies smoking. - Family: She has two children, ages 12 and 18. - Exercise: Performs stretching exercise s for pain associated with her work posture. Results - Labs: Blood work from August was noted to be normal, including cholesterol. - Imaging: The patient has had a prior m ammogram and has a follow-up scheduled for May. [facility] Medical History (Updated 01/02/25 @ 09:13 by SHAHBAZ Allen) Anxiety and depression Cervicalgia Migraine with aura Alopecia Surgical History History of YAG laser capsulotomy of lens Family History Mother Ovarian cancer Hypertension Hypercholesteremia Father Asthma Alcoholism Liver disease Sister Asthma Depression Anemia Osteoporosis Other Mental health disorder Social History Housing: House Alcohol intake: never Patient Tobacco Use Status: Never used Tobacco Tobacco use type: Cigarette e-Cigarette/Vaping Use: Never Used Second Hand Smoke Exposure: No service: No Current occupational status: employed Current occupation: Dental Current occupational exposures/hazards: No Cognitive needs: No Hearing needs: No Vision needs: Yes Questionnaire Thrive Questionnaire Date Thrive assessed: 09/09/24 I am a: Patient What is your living situation today?: I have a steady place to live Within the past 12 months, did the food you bought not last and you didn't have the money to get more?: I choose not to answer this question Within the past 12 months, did you worry whether your food would run out before you got money to buy more?: Never true Do you have trouble paying for medicines?: No Do you have trouble getting transportation to medical appointments?: No Do you have trouble paying your heating and electricity bill?: No Do you have trouble taking care of your child, family member or friend?: No Do you have trouble with day-to-day activities such as bathing, preparing meals, shopping, managing finances, etc.?: No Are you currently unemployed and looking for a job?: No Are you interested in more education?: No Please select the resources that you would like help with: None Currently or been in a relationship where the following occur: No concerns reported THRIVE Score: 0 JYOTHI-7 AMB Questionnaire JYOTHI-7 Date JYOTHI - 7 assessed: 05/15/24 Source: Developed by Drs. Alexei Serna, Sirisha Lara, Luis Jennings and colleagues, with an educational alf from [employer]. Review of Systems Narrative Review of Systems - Neurological: Reports a decrease in migraine frequency. - Psychiatric: Reports persistent mood swings but overall improvement in mental state. - Musculoskeletal: Reports ongoing but less severe back pain. - Respiratory: Reports requiring an albuterol nebulizer or inhaler for asthma attacks, particularly during certain seasons. - Gastrointestinal: Reports occasional nausea managed with as-needed medication. - Genitourinary: Reports minimal, infrequent bleeding since changing her IUD, lasting less than a day. Physical exam (Primary Care) Vital Signs: Last Vital Signs Temp 97.1 F 04/23/25 11:44 Pulse 60 04/23/25 11:44 BP 100/60 04/23/25 11:44 Pulse Ox 98 04/23/25 11:44 Oxygen Delivery Method Room Air 04/23/25 11:44 BMI result Body Mass Index 24.8 Tobacco/Smoking Status: Tobacco use Status Tobacco use date assessed 04/23/25 04/23/25 11:50 Patient Tobacco Use Status Never used Tobacco 04/23/25 11:50 Tobacco use type Cigarette 04/23/25 11:50 e-Cigarette/Vaping Use Never Used 04/23/25 11:50 Thrive Assessment: Date of Thrive Assessment Date Thrive assessed 09/09/24 04/23/25 11:50 Currently or been in a relationship where the following occur: No concerns reported Narrative Physical Exam General: Cooperative and healthy appearing Nutritional Appearance: Well nourished Orientation/consciousness: Patient oriented x3 Limitations: No limitations Head: Normal to inspection General: Appearance normal, both eyes and all related structures Neck: Normal visual inspection Chest: Normal palpation of entire chest wall Respiratory: Normal respiratory effort Neurology: Patient oriented x3 Coding Level of Care Code Est Pt Level 4 (87862) Add On Problem Visit Only Diagnoses Asthma J45.909 Assessment & Plan Assessment & Plan (1) Asthma: Code(s): J45.909 - Unspecified asthma, uncomplicated Category: Medical Plan Plan - A prescription for Symbicort was sent to the pharmacy for daily asthma maintenance. - Refills for the albuterol nebulizer solution and a new albuterol inhaler will be provided for rescue use. - The patient will receive a refill for her neurologist-prescribed migraine medication. - The patient should discontinue topiramate due to non-adherence. - The patient has discontinued citalopram as she does not feel she needs it. - Refills for ondansetron for nausea will be provided as needed. - The patient is advised to continue with her scheduled mammogram in May. - Defer lab work until the next visit. - The patient will follow up in 6 months. Discussion Notes I reviewed the patient's medications and current health status. For her asthma, I explained that albuterol is a rescue medication and that a daily maintenance inhaler like Symbicort would be more effective for prevention. I sent a prescription for Symbicort and also provided refills for her albuterol nebulizer solution and pump. Regarding her headaches, I advised her to stop taking topiramate if she is not going to take it consistently, as intermittent use is ineffective. We agreed to discontinue citalopram as she reports feeling much better mentally and does not feel she needs it. I noted her previous lab work from August was normal and we will plan to repeat it at her next visit in six months. I encouraged her to proceed with her scheduled mammogram in May, especially given her family history. Patient Instructions - Begin taking Symbicort inhaler every day, one puff in the morning and one in the evening, to help prevent asthma attacks. - Use your albuterol inhaler or nebulizer only as a rescue treatment if you have an asthma attack. - Stop taking topiramate for now, since you are not taking it every day. - You can stop taking citalopram (Celexa) as you feel you no longer need it. - Continue to use the muscle relaxant (cyclobenzaprine) and lidocaine patches for your back pain only when needed. - Your prescriptions for albuterol, naratriptan, and the headache medicine from your neurologist will be refilled. - Make sure to go to your scheduled mammogram appointment in May. - Plan to have your next blood work done at your next appointment. - Schedule a follow-up visit in six months. Medications: New budesonide-formoterol 160-4.5 mcg/actuation (Symbicort) 2 puffs PO BID 10.2 grams 1RF Refilled albuterol sulfate 90 mcg/actuation 1 inh inhalation QID 8.5 grams 0RF ondansetron 4 mg PO Q8H PRN 10 tabs 0RF nausea and vomiting albuterol sulfate 0.63 mg (3 mL) inhalation QID PRN 75 mL 0RF shortness of breath or wheezing ubrogepant (Ubrelvy) take at onset of migraine, may repeat in 2hrs (may take w/ Ibuprofen) 50 - 100 mg (0.5 - 1 x 100 mg) PO ONCE PRN 16 tabs 3RF migraine headache 30 days Discontinued celecoxib (Celebrex) Discontinued Reason: Doctor's Order 200 mg PO BID 28 caps 0RF 2 weeks acetaminophen (Tylenol Extra Strength) Discontinued Reason: Doctor's Order 500 mg PO Q6H PRN 30 tabs 0RF pain prednisone Discontinued Reason: Doctor's Order 20 mg PO DAILY 7 days 7 tabs 0RF topiramate Discontinued Reason: Doctor's Order 25 - 50 mg (1 - 2 x 25 mg) PO BEDTIME 60 tabs 3RF 30 days cyclobenzaprine Discontinued Reason: Doctor's Order 10 mg PO Q8H 30 tabs 1RF muscle spasm citalopram Discontinued Reason: Doctor's Order 10 mg PO DAILY 90 tabs 1RF depression erenumab-aooe (Aimovig Autoinjector) Discontinued Reason: Doctor's Order 140 mg subcut ONCE 1 mL 6RF 30 days cholecalciferol (vitamin D3) Discontinued Reason: Doctor's Order 1,250 mcg PO QWEEK 13 caps 0RF vit d deficiency 3 months
[2025-04-23 11:44] VITALS: BP 100/60; PULSE 60; TEMP 36.2; O2SAT 98; BMI 24.8
== END 2025-04-23 12:25 | disposition home or self-care (01) ==
LOC: HO.HMCH 11:38
PROVIDERS: PCP Internal Medicine; Visit Provider Internal Medicine
DX: J45.909 Unspecified asthma, uncomplicated (principal)

== ENCOUNTER → 2025-04-23 11:37 | Outpatient (BNVA) | payer OTHER, SELFPAY | PROVIDERS: Visit Provider Internal Medicine | DX: G43.909 Migraine, unspecified, not intractable, without status migrainosus (principal); M54.9 Dorsalgia, unspecified; J45.909 Unspecified asthma, uncomplicated; Z79.899 Other long term (current) drug therapy | CPT/HCPCS: 99212 ==

== ENCOUNTER → 2025-04-28 07:55 | Outpatient (REF) | payer OTHER, SELFPAY | LOC: HO.SL 07:55 | PROVIDERS: PCP Internal Medicine; Visit Provider Nurse Practitioner Family | DX: R06.83 Snoring (principal); G47.19 Other hypersomnia | CPT/HCPCS: 95806 ==

== ENCOUNTER → 2025-05-03 08:04 | Outpatient (BNV) | payer OTHER, SELFPAY | PROVIDERS: PCP Internal Medicine; Visit Provider Psychiatry & Neurology Neurology | DX: G47.10 Hypersomnia, unspecified (principal); R06.83 Snoring | CPT/HCPCS: 95806 ==